=== PATIENT | female | born 1930 | race Caucasian/White ===

== ENCOUNTER 2016-11-26 14:14 | Observation (INO) | payer OTHER ==
[2016-11-26 14:28] VITALS: BMI 21.9
[2016-11-26 14:40] LABS: BASOPHIL 0.5 % (0-2.0); EOSINOPHIL 1.8 % (0-4.5); MCH 29.1 pg (25.7-33.7); MCHC 33.4 g/dl (32.0-36.0); MEAN CELL VOLUME 87.3 fl (80-96); MEAN PLT VOLUME 7.5 fl (7.5-11.1); NEUTROPHILS 63.5 % (42.8-82.8); PLATELET COUNT 239 K/MM3 (134-434); RDW 13.7 % (11.6-15.6); WHITE BLOOD COUNT 7.7 K/mm3 (4.0-10.0)
[2016-11-26] MEDS ORDERED: ASPIRIN 81 MG CHEWABLE TABLETS ONE (14:52)
[2016-11-26] MEDS ORDERED: ACETAMINOPHEN 325 MG TABLET (FP) ONE (14:52)
[2016-11-26] MEDS ORDERED: ASPIRIN 81 MG CHEWABLE TABLETS PO ONE (14:54)
[2016-11-26] MEDS ORDERED: ACETAMINOPHEN 325 MG TABLET (FP) PO ONE (14:54)
--- NOTE | 2016-11-26 14:57 | PDOC ---
History of Present Illness - General History Source: Patient, Family Exam Limitations: No Limitations <Daniel Smith - Last Filed: 11/26/16 16:40> <James Meyrs - Last Filed: 11/26/16 16:46> - General Chief Complaint: Chest Pain Stated Complaint: CHEST PAIN Time Seen by Provider: 11/26/16 14:23 - History of Present Illness Initial Comments: 11/26/16 16:40 The patient is a 86 year old female presenting with her family, with a significant past medical history of HTN and HLD, who presents to the emergency department with chest pain onset this morning around 8am. She describes her chest pain as sharp, ranging from mild to moderate, with radiation down her left arm. She reports that moving her left arm at the onset of her chest pain would cause pain on her arm. She also reports a sore throat associated with her chief complaint. The paient was last in the ED in 2014 for chest pain, she was admitted and had an exercise stress test, which was normal, as well as an echo. 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 Denies fever, chills, nausea, vomit, diarrhea and constipation. Denies dysuria, frequency, urgency and hematuria. PMD: Dr. Finn Allergies: None Past surgical history: None reported Social history: No alcohol, tobacco or drug use reported (Daniel Smith) Past History <Daniel Smith - Last Filed: 11/26/16 16:40> - Past Medical History HTN: Yes Hypercholesterolemia: Yes Other medical history: Glaucoma - Psycho/Social/Smoking Cessation Hx Anxiety: No Suicidal Ideation: No Smoking History: Never smoked Have you smoked in the past 12 months: No Hx Alcohol Use: No Drug/Substance Use Hx: No Substance Use Type: None <James Myers - Last Filed: 11/26/16 16:46> - Past Medical History Allergies/Adverse Reactions: Allergies Allergy/AdvReac Type Severity Reaction Status Date / Time No Known Allergies Allergy Verified 11/26/16 14:28 Home Medications: Ambulatory Orders Amlodipine Besylate [Norvasc -] 5 mg PO DAILY 09/30/14 Ezetimibe/Simvastatin [Vytorin 10-20 mg Tablet] 1 tab PO HS 09/30/14 Metoprolol Succinate [Toprol Xl -] 25 mg PO DAILY #30 tab.sr.24h 10/01/14 Review of Systems - Review of Systems Able to Perform ROS?: Yes <Daniel Smith - Last Filed: 11/26/16 16:40> <James Myers - Last Filed: 11/26/16 16:46> - Review of Systems Comments:: 11/26/16 16:40 CONSTITUTIONAL: No reported: Fever, Chills, Diaphoresis, Generalized Weakness, Malaise, Loss of Appetite HEENT: Reported: Sore throat No reported: Rhinorrhea, Nasal Congestion, Throat Swelling, Difficulty Swallowing, Mouth Swelling, Ear Pain, Eye Pain, Visual Changes CARDIOVASCULAR: Reported: Chest pain. No reported: Syncope, Palpitations, Irregular Heart Rate, Lightheadedness, Peripheral Edema RESPIRATORY: No reported: Cough, Shortness of Breath, SOB with Exertion, Orthopnea, Wheezing , Stridor, Hemoptysis GASTROINTESTINAL: No reported: Abdominal pain, Abdominal Distension, Nausea, Vomiting, Diarrhea, Constipation, Melena, Hematochezia GENITOURINARY: No reported: Dysuria, Frequency, Urgency, Hesitancy, Flank Pain, Genital Pain MUSCULOSKELETAL: No reported: Myalgia, Arthralgia, Joint Swelling, Back pain, Neck Pain SKIN: No reported: Rash, Itching, Pallor HEMEATOLOGIC/IMMUNOLOGIC: No reported: Easy Bleeding, Easy Bruising, Lymphadenopathy, Frequent infections ENDOCRINE: No reported: Unexplained Weight Gain, Unexplained Weight Loss, Heat Intolerance , Cold Intolerance NEUROLOGIC: No reported: Headache, Focal Weakness, Paresthesias, Vertigo, Lightheadedness, Unsteady Gait, Seizure, Mental Status Changes, Incontinence PSYCHIATRIC: No reported: Anxiety, Depression (Daniel Smith) *Physical Exam <Daniel Smith - Last Filed: 11/26/16 16:40> <James Myers - Last Filed: 11/26/16 16:46> - Vital Signs Last Vital Signs Temp Pulse Resp BP Pulse Ox 97.6 F 58 L 17 132/73 97 11/26/16 14:15 11/26/16 16:00 11/26/16 16:00 11/26/16 16:00 11/26/16 16:00 - Physical Exam Comments: 11/26/16 16:41 GENERAL: The patient is awake, alert, and fully oriented, Nontoxic - in no acute distress. HEAD: Normocephalic, atraumatic. EYES: extraocular movements intact, sclera anicteric, conjunctiva clear. ENT: Normal voice, Moist mucous membranes. NECK: Normal range of motion, supple LUNGS: Breath sounds equal, clear to auscultation bilaterally. No wheezes, no rhonchi, no rales. HEART: Regular rate and rhythm, without murmur, rub or gallop. ABDOMEN: Soft, nontender, normoactive bowel sounds. No guarding, no rebound.No CVA tenderness EXTREMITIES: Normal range of motion, no edema. No clubbing or cyanosis. No cords, erythema, or tenderness. NEUROLOGICAL: No facial assymetry, Normal speech, PSYCH: Normal mood, normal affect. SKIN: Warm, Dry, normal turgor, (Daniel Smith) Heart Score/ECG Review <Daniel Smith - Last Filed: 11/26/16 16:40> - History History: Slightly suspicious - Electrocardiogram EKG: Non specific repolarization disturbance - Age Age: >/= 65 - Risk Factors Risk Factors Heart Score: Yes Hx Hypercholesterolemia, Yes Hx Hypertension Based on the list above the patient has:: 1-2 risk factors - Troponin Troponin: </= normal limit - Score Heart Score - Total: 4 <James Myers - Last Filed: 11/26/16 16:46> - ECG Impressions Comment:: 11/26/16 14:58 Twelve-lead EKG was performed and reviewed by me. There is normal sinus rhythm Rate of 58 The axis is normal. The intervals are normal. There is normal R wave progression Nonspecific T-wave inversion in lead III (James Myers) ED Treatment Course - LABORATORY CBC & Chemistry Diagram: 11/26/16 14:33 11/26/16 14:33 <Daniel Smith - Last Filed: 11/26/16 16:40> - LABORATORY CBC & Chemistry Diagram: 11/26/16 14:33 11/26/16 14:33 <James Myers - Last Filed: 11/26/16 16:46> - ADDITIONAL ORDERS Additional order review: Laboratory Results 11/26/16 11/26/16 14:33 14:33 Sodium 140 Potassium 4.1 Chloride 107 Carbon Dioxide 28 Anion Gap 5 L BUN 19 H Creatinine 0.8 Creat Clearance w eGFR > 60 Random Glucose 82 Calcium 9.2 Total Bilirubin 0.3 D AST 15 ALT 21 Alkaline Phosphatase 55 Creatine Kinase 75 Troponin I < 0.02 B-Natriuretic Peptide 231.76 Total Protein 6.7 Albumin 3.4 11/26/16 14:33 RBC 4.73 MCV 87.3 MCHC 33.4 RDW 13.7 MPV 7.5 Neutrophils % 63.5 Lymphocytes % 27.7 Monocytes % 6.5 Eosinophils % 1.8 Basophils % 0.5 - RADIOLOGY Radiology Studies Ordered: Category Date Time Status CHEST X-RAY PORTABLE* [RAD] Stat Radiology 11/26/16 14:26 Completed SHOULDER-LEFT [RAD] Stat Radiology 11/26/16 14:56 Completed - Medications Given in the ED: ED Medications Discontinued Medications Generic Name Dose Route Start Last Admin Trade Name Freq PRN Reason Stop Dose Admin Acetaminophen 650 mg 11/26/16 14:54 11/26/16 14:58 Tylenol - PO 11/26/16 14:55 650 mg ONCE ONE Administration Aspirin 324 mg 11/26/16 14:54 11/26/16 14:58 Asa - PO 11/26/16 14:55 324 mg ONCE ONE Administration Medical Decision Making <Daniel Smith - Last Filed: 11/26/16 16:40> <James Myers - Last Filed: 11/26/16 16:46> - Medical Decision Making 11/26/16 14:55 86y F hx of HL. htn, presents with complaint of chets pain startin gapprox 8am, pt endorses a sharp intermittent pain associated with coughing, radiating from the mid chest to the right chest and to the L arm. On exam the pt is well appearing, in no distress. currently denies pain, pulses symmetric b/l. mild crepitus =in the L shoulder concern for ACS will obtain trops x 2, ekg will give ASA consider dissection, however with symetric pulses, intermittent sypmtmos do not feel thi sis likely clinically inconsistent w/ pe will erassesss consider broken heart syndrome A portion of this note was documented by scribe services under my direction. I have reviewed the details of the note, within reason, and agree with the documentation with the following case summary and management plan written by me 11/26/16 16:25 trop neg x 1 cxr neg will observe for risk stratefication of acs 11/26/16 16:[address] gonzalez agreed with admission to [facility] for obs under dr. bronson service Case discussed in detail with admitting physician including history, physical exam and ancillary studies. Admitting physician has assumed care for the patient, will follow all pending diagnostics and will complete the evaluation and treatment. (James Myers) *DC/Admit/Observation/Transfer <Daniel Smith - Last Filed: 11/26/16 16:40> - Discharge Dispostion Admit: Yes <James Myers - Last Filed: 11/26/16 16:46> Diagnosis at time of Disposition: Chest pain Qualifiers: Chest pain type: unspecified Qualified Code(s): R07.9 - Chest pain, unspecified - Discharge Dispostion Condition at time of disposition: Stable - Referrals Referrals: Marixa Gaspar MD [Primary Care Provider] - - Patient Instructions - Attestations Scribe Attestion: 11/26/16 16:41 Documentation prepared by Daniel Smith, acting as medical professionals for James Myers MD (Daniel Smith)
[2016-11-26 15:03] LABS: ALBUMIN 3.4 g/dl (3.4-5.0); ANION GAP 5 (8-16); BILIRUBIN,TOTAL 0.3 mg/dL (0.2-1.0); CALCIUM 9.2 mg/dL (8.5-10.1); CO2 28 mmol/L (21-32); CREATININE 0.8 mg/dL (0.55-1.02); GLUCOSE,RANDOM 82 mg/dL (74-106); SGOT/AST 15 U/L (15-37); SGPT/ALT 21 U/L (12-78); TOT PROT 6.7 g/dl (6.4-8.2)
[2016-11-26 15:05] LABS: ALK PHOS 55 U/L (45-117); CPK 75 IU/L (26-192); TROPONIN I < 0.02 ng/ml (0.00-0.05)
[2016-11-26] MEDS ORDERED: ACETAMINOPHEN 325 MG TABLET (FP) PO PRN (17:21)
[2016-11-26] MEDS ORDERED: HEPARIN NA (PORCINE) 5,000 UNITS/ML 1ML VIAL SQ SCH (18:00)
--- NOTE | 2016-11-26 18:05 | PN ---
Teaching Attending Note Name of Resident: Sherie Gary ATTENDING PHYSICIAN STATEMENT I saw and evaluated the patient. I reviewed the resident's note and discussed the case with the resident. I agree with the resident's findings and plan as documented. SUBJECTIVE: This is an 86-year-old woman with a history of HTN, hyperlipidemia who was brought in to the ER because of chest pain. The patient reports pressure in her chest radiating to her left arm and neck that started while she was lying in bed. She denies palpitations, diaphoresis, SOB, nausea. She had a negative stress test 2 years ago. Her 2 days ago. OBJECTIVE: Vital Signs Period Temp Pulse Resp BP Sys/Brown Pulse Ox Last 24 Hr 97.6 F 58-72 17-18 132-166/69-76 97-100 HEART: S1S2, bradycardic LUNGS: Clear ABDOMEN: Soft, non-tender, non-distended, normal BS EXTREMITIES: No edema Home Medications Medication Instructions Recorded Amlodipine Besylate [Norvasc -] 5 mg PO DAILY 09/30/14 Ezetimibe/Simvastatin [Vytorin 1 tab PO HS 09/30/14 10-20 mg Tablet] Metoprolol Succinate [Toprol Xl -] 25 mg PO DAILY #30 tab.sr.24h 10/01/14 ASSESSMENT AND PLAN: This is an 86-year-old woman with a history of HTN, hyperlipidemia who presented to the ER with chest pressure radiating to her left arm and neck at rest 2 days after her . 1. Chest pain - Observe on telemetry - Serial troponins - Start aspirin - Hold Toprol XL secondary to bradycardia - Continue Vytorin - Echocardiogram 2. Hypertension - Continue Norvasc - Hold Toprol XL secondary to bradycardia 3. Hyperlipidemia - Continue Vytorin
--- NOTE | 2016-11-26 19:31 | HP ---
CHIEF COMPLAINT: chest pain PCP: Dr. Marixa Gaspar HISTORY OF PRESENT ILLNESS: 86 year old female with a past medical history of hypertension and hyperlipidemia, was brought in by her family members due to chest pain that started early this morning while still lying in bed. Patient states she way lying down when she felt this heavy pressure in her chest. This lasted a few minuets, pressure/pain radiated down left arm and also went up the left side of her neck. Patient denies diaphoresis, palpitations, orthopnea, edema, sob, fever , chills, v, n, abdominal pain. She does admit to a few episodes of diarrhea for the past couple of days, which has subsided today. She had a formed bowel movement today. Her grandchildren also had same diarrhea symptoms. Patient recently lost her due to cancer two days ago as well. Family states that she has been a little nervous lately. Ms Villalobos had a cardiology work up September 2014, stress test was negative for ischemia, with EF of 79%. ER course was unremarkable. ECG was NSR, comparable to previous. Recent Travel: no PAST MEDICAL HISTORY: HLD, HTN PAST SURGICAL HISTORY: hysterectomy Social History: Smoking:no Alcohol:no Drugs: no Family History: Allergies No Known Allergies Allergy (Verified 11/26/16 14:28) HOME MEDICATIONS: Home Medications Medication Instructions Recorded Amlodipine Besylate [Norvasc -] 5 mg PO DAILY 09/30/14 Ezetimibe/Simvastatin [Vytorin 1 tab PO HS 09/30/14 10-20 mg Tablet] Metoprolol Succinate [Toprol Xl -] 25 mg PO DAILY #30 tab.sr.24h 10/01/14 REVIEW OF SYSTEMS CONSTITUTIONAL: Absent: fever, chills, diaphoresis, generalized weakness, malaise, loss of appetite, weight change HEENT: Absent: rhinorrhea, nasal congestion, throat pain, throat swelling, difficulty swallowing, mouth swelling, ear pain, eye pain, visual changes CARDIOVASCULAR: Positive: chest pain Absent: syncope, palpitations, irregular heart rate, lightheadedness, peripheral edema RESPIRATORY: Absent: cough, shortness of breath, dyspnea with exertion, orthopnea, wheezing, stridor, hemoptysis GASTROINTESTINAL: Absent: abdominal pain, abdominal distension, nausea, vomiting, diarrhea, constipation, melena, hematochezia GENITOURINARY: Absent: dysuria, frequency, urgency, hesitancy, hematuria, flank pain, genital pain MUSCULOSKELETAL: Absent: myalgia, arthralgia, joint swelling, back pain, neck pain SKIN: Absent: rash, itching, pallor HEMATOLOGIC/IMMUNOLOGIC: Absent: easy bleeding, easy bruising, lymphadenopathy, frequent infections ENDOCRINE: Absent: unexplained weight gain, unexplained weight loss, heat intolerance, cold intolerance NEUROLOGIC: Absent: headache, focal weakness or paresthesias, dizziness, unsteady gait, seizure, mental status changes, bladder or bowel incontinence PSYCHIATRIC: Absent: anxiety, depression, suicidal or homicidal ideation, hallucinations. PHYSICAL EXAMINATION Vital Signs - 24 hr 11/26/16 11/26/16 17:55 18:45 Pulse Rate 64 74 Respiratory 16 16 Rate Blood Pressure 126/54 O2 Sat by Pulse 97 96 Oximetry (%) GENERAL: Awake, alert, and fully oriented, in no acute distress. HEAD: Normal with no signs of trauma. NECK: Normal range of motion, supple without lymphadenopathy, JVD, or masses. LUNGS: Breath sounds equal, clear to auscultation bilaterally. No wheezes, and no crackles. No accessory muscle use. HEART: Regular rate and rhythm, normal S1 and S2 without murmur, rub or gallop. ABDOMEN: Soft, nontender, not distended, normoactive bowel sounds, no guarding, no rebound, no masses. No hepatomegaly or splenomegaly. MUSCULOSKELETAL: Normal range of motion at all joints. No bony deformities or tenderness. No CVA tenderness. UPPER EXTREMITIES: 2+ pulses, warm, well-perfused. No cyanosis. No clubbing. No peripheral edema. LOWER EXTREMITIES: 2+ pulses, warm, well-perfused. No calf tenderness. No peripheral edema. NEUROLOGICAL: Cranial nerves II-XII intact. Normal speech. Normal gait. PSYCHIATRIC: Cooperative. Good eye contact. Appropriate mood and affect. SKIN: Warm, dry, normal turgor, no rashes or lesions noted, normal capillary refill. ASSESSMENT/PLAN: 86 year old female with a past medical history of hypertension and hyperlipidemia, presents tot he ER with chest pain. Rule out ACS. #chest pain r/o ACS; agina; vs stress related -cardiac monitoring -ECG NST; no st-t wave abnormalities -Last echo 10/06 showing normal LV function; no wall motion abnormalities, mild TR, mild to moderate mitral regurg -stress test 10/06 negative for ischema EF 79% -trend troponins -appreciate cardio #bradycardia: -will hold BB #hypertension: -cont amlodipime 5mg qd -hold metoprool due to HR #hyperlipidemia: -cont home statin FEN: Fluid restrict Electrolytes: wnl Diet: regular due to bp VTE prophylaxis: Disposition: monitor obs tele Problem List - Problem (1) Chest pain Code(s): R07.9 - CHEST PAIN, UNSPECIFIED Qualifiers: Chest pain type: unspecified Qualified Code(s): R07.9 - Chest pain, unspecified (2) Bradycardia Code(s): R00.1 - BRADYCARDIA, UNSPECIFIED (3) Hyperlipemia Code(s): E78.5 - HYPERLIPIDEMIA, UNSPECIFIED (4) Hx of essential hypertension Code(s): Z86.79 - PERSONAL HISTORY OF OTHER DISEASES OF THE CIRCULATORY SYSTEM Visit type - Emergency Visit Emergency Visit: Yes ED Registration Date: 11/26/16 Care time: The patient presented to the Emergency Department on the above date and was hospitalized for further evaluation of their emergent condition. - New Patient This patient is new to me today: Yes Date on this admission: 11/27/16 - Critical Care Critical Care patient: No
[2016-11-26] MEDS: HEPARIN NA (PORCINE) 5,000 UNITS/ML 1ML VIAL SQ SCH (21:17)
[2016-11-26] MEDS ORDERED: diphenhydrAMINE HCL 25 MG CAPSULE (FP) PO ONE (22:00)
[2016-11-27] MEDS: HEPARIN NA (PORCINE) 5,000 UNITS/ML 1ML VIAL SQ SCH ×3 (06:30→22:06)
[2016-11-27 07:07] LABS: ANION GAP 2 (8-16); CALCIUM 8.5 mg/dL (8.5-10.1); CO2 32 mmol/L (21-32); GLUCOSE,RANDOM 89 mg/dL (74-106)
[2016-11-27 07:13] LABS: ALK PHOS 49 U/L (45-117); BILIRUBIN,TOTAL 0.2 mg/dL (0.2-1.0); SGOT/AST 14 U/L (15-37); SGPT/ALT 17 U/L (12-78); THYROID STIMULATING HORMONE 0.46 uIU/ml (0.358-3.74); TOT PROT 5.9 g/dl (6.4-8.2)
--- NOTE | 2016-11-27 07:30 | PN ---
Physical Exam: SUBJECTIVE: Patient seen and examined The patient is an 86-year-old woman with a history of HTN, hyperlipidemia who was placed on observation yesterday for evaluation of chest pain. She had a negative stress test 2 years ago. Her two days prior to hospitalization. She denies chest pain. OBJECTIVE: Vital Signs Period Temp Pulse Resp BP Sys/Brown Pulse Ox Last 24 Hr 97.4 F-98 F 55-74 16-18 115-134/43-61 94-97 HEART: S1S2, RRR LUNGS: Clear ABDOMEN: Soft, non-tender, non-distended, normal BS EXTREMITIES: No edema Laboratory Results - last 24 hr 11/26/16 21:50 Troponin I 0.04 Active Medications Generic Name Dose Route Start Last Admin Trade Name Freq PRN Reason Stop Dose Admin Acetaminophen 650 mg 11/26/16 17:21 Tylenol - PO Q4H PRN FEVER OR PAIN Amlodipine Besylate 5 mg 11/27/16 10:00 Norvasc - PO DAILY RAHUL Aspirin 81 mg 11/27/16 10:00 Ecotrin - PO DAILY RAHUL Atorvastatin Calcium 10 mg 11/27/16 22:00 Lipitor - PO HS RAHUL Ezetimibe 10 mg 11/27/16 22:00 Zetia - PO HS RAHUL Heparin Sodium (Porcine) 5,000 unit 11/26/16 22:00 11/27/16 06:30 Heparin - SQ 5,000 unit TID RAUHL Administration ASSESSMENT/PLAN: #Cardiovascular Chest pain Chronic HTN Chronic Hyperlipidemia Bradycardia Observe on telemetry Last 2 troponins were negative. 3rd is pending. TTE in am Continue aspirin Continue to hold Toprol XL secondary to bradycardia Continue Lipitor/Zetia Cardiology consult (Dr. Cline) pending # FEN Regular diet Replete lytes prn #Prophylaxis Eating On TID Heparin #DISPO Peniding cardiology evaluation and TTE in am Visit type - Emergency Visit Emergency Visit: Yes ED Registration Date: 11/26/16 Care time: The patient presented to the Emergency Department on the above date and was hospitalized for further evaluation of their emergent condition. - New Patient This patient is new to me today: Yes Date on this admission: 11/27/16 - Critical Care Critical Care patient: No
--- NOTE | 2016-11-27 08:13 | EKG ---
Test Reason : Blood Pressure : / mmHG Vent. Rate : 058 BPM Atrial Rate : 058 BPM P-R Int : 160 ms QRS Dur : 092 ms QT Int : 434 ms P-R-T Axes : 017 -04 013 degrees QTc Int : 426 ms SINUS BRADYCARDIA MINIMAL VOLTAGE CRITERIA FOR LVH, MAY BE NORMAL VARIANT BORDERLINE ECG WHEN COMPARED WITH ECG OF 30-SEP-2014 15:04, PREMATURE ATRIAL COMPLEXES ARE NO LONGER PRESENT Confirmed by SAKSHI DAWN, ARACELI ([id number]) on 11/27/2016 8:13:25 AM Referred By: Confirmed By:ARACELI CANTOR MD
--- NOTE | 2016-11-27 09:06 | CON.CARD ---
Consult Consult Specialty:: Cardiology Referred by:: Hospitalist Reason for Consultation:: Cardiac evaluation - History of Present Illness Chief Complaint: Chest pain History of Present Illness: Patient is an 86 year old female with underlying history of hypertension and hypercholesterolemia who presented to ED yesterday with chest pain which started yesterday morning. She describes it as "sharp" with radiating to her left arm. She also complained of sore throat yesterday. She denies shortness of breath or palpitations. She denies paroxymal nocturnal dyspnea or orthopnea. She denies fever or chills. She denies headache or lightheadedness. She denies syncopal episodes. She has had stress testing in 2015 which was unremarkable. PCP: Dr. 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 History of Recent Travel: No Home Medications - Allergies Allergies/Adverse Reactions: Allergies Allergy/AdvReac Type Severity Reaction Status Date / Time No Known Allergies Allergy Verified 11/26/16 14:28 - Home Medications Home Medications: Ambulatory Orders Amlodipine Besylate [Norvasc -] 5 mg PO DAILY 09/30/14 Ezetimibe/Simvastatin [Vytorin 10-20 mg Tablet] 1 tab PO HS 09/30/14 Metoprolol Succinate [Toprol Xl -] 25 mg PO DAILY #30 tab.sr.24h 10/01/14 Family Disease History - Family Disease History Family Disease History: Heart Disease: Sister (Heart disease), CA: Father (Lung) Review of Systems - Review of Systems Constitutional: denies: Chills, Fever Cardiovascular: reports: Chest Pain. denies: Palpitations, Shortness of Breath Respiratory: denies: Cough, Hemoptysis, Orthopnea, PND, SOB, SOB on Exertion Gastrointestinal: denies: Abdominal Pain, Constipation, Diarrhea, Melena, Nausea , Rectal Bleeding, Vomiting Musculoskeletal: denies: Joint Pain Neurological: reports: Dizziness. denies: Headache, Seizure, Syncope Vital Signs: Vital Signs Temperature 98 F 11/27/16 06:41 Pulse Rate 58 L 11/27/16 06:41 Respiratory Rate 16 11/27/16 06:00 Blood Pressure 126/46 11/27/16 06:00 O2 Sat by Pulse Oximetry (%) 94 L 11/27/16 05:00 HENT: Yes: Atraumatic Neck: Yes: Supple Respiratory: Yes: CTA Bilaterally Gastrointestinal: Yes: Normal Bowel Sounds, Soft. No: Tenderness Cardiovascular: Yes: Regular Rate and Rhythm. No: Gallop JVD: No Carotid Bruit: No PMI: Non-Displaced Heart Sounds: Yes: S1, S2 Edema: No - Other Data Labs, Other Data: CBC, BMP 11/27/16 05:15 Troponin, BNP 11/26/16 11/27/16 21:50 05:15 Troponin I 0.04 Cancelled Laboratory Results - last 24 hr 11/26/16 11/26/16 11/26/16 14:33 14:33 14:33 WBC 7.7 RBC 4.73 Hgb 13.8 Hct 41.3 MCV 87.3 MCH 29.1 MCHC 33.4 RDW 13.7 Plt Count 239 MPV 7.5 Neutrophils % 63.5 Lymphocytes % 27.7 Monocytes % 6.5 Eosinophils % 1.8 Basophils % 0.5 Sodium 140 Potassium 4.1 Chloride 107 Carbon Dioxide 28 Anion Gap 5 L BUN 19 H Creatinine 0.8 Creat Clearance w eGFR > 60 Random Glucose 82 Calcium 9.2 Magnesium Total Bilirubin 0.3 D AST 15 ALT 21 Alkaline Phosphatase 55 Creatine Kinase 75 Troponin I < 0.02 B-Natriuretic Peptide 231.76 Total Protein 6.7 Albumin 3.4 Triglycerides Cholesterol Total LDL Cholesterol HDL Cholesterol TSH 11/26/16 11/27/16 11/27/16 21:50 05:15 05:15 WBC RBC Hgb Hct MCV MCH MCHC RDW Plt Count MPV Neutrophils % Lymphocytes % Monocytes % Eosinophils % Basophils % Sodium 141 Potassium 4.5 Chloride 107 Carbon Dioxide 32 Anion Gap 2 L BUN 23 H D Creatinine 1.0 D Creat Clearance w eGFR 52.69 Random Glucose 89 Calcium 8.5 Magnesium 2.0 Total Bilirubin 0.2 D AST 14 L ALT 17 Alkaline Phosphatase 49 Creatine Kinase Troponin I 0.04 0.03 B-Natriuretic Peptide Total Protein 5.9 L Albumin 3.0 L Triglycerides 139 Cholesterol 164 Total LDL Cholesterol 85 HDL Cholesterol 54 TSH 0.46 Sinus bradycardia Echo: Pending Imaging - Results Chest X-ray: Report Reviewed (Unremarkable) EKG: Report Reviewed Problem List - Problems (1) Chest pain Code(s): R07.9 - CHEST PAIN, UNSPECIFIED Qualifiers: Chest pain type: unspecified Qualified Code(s): R07.9 - Chest pain, unspecified (2) Hx of essential hypertension Code(s): Z86.79 - PERSONAL HISTORY OF OTHER DISEASES OF THE CIRCULATORY SYSTEM (3) Hyperlipemia Code(s): E78.5 - HYPERLIPIDEMIA, UNSPECIFIED Assessment/Plan 1. Chest pain syndrome rule out CAD 2. Hypertension 3. Hypercholesterolemia PLAN: 1. Serial cardiac enzymes 2. Continue Amlodipine 3. Beta fernanda - Metoprolol as tolerated, but currently held due to bradycardia 4. Continue ASA 5. Continue Atorvastatin 6. Transthoracic echocardiography to assess LV/RV and valvular function 7. Consider nuclear myocardial perfusion imaging study Further plans are to follow Paulino Cline MD
[2016-11-27] MEDS: ASPIRIN COATED 81 MG TABLET.EC PO SCH (09:25)
[2016-11-27] MEDS: amLODIPine BESYLATE 5 MG TABLET (FP) PO SCH (09:25)
[2016-11-27] MEDS ORDERED: traZODone HCL 50 MG TABLET (FP) PO PRN (12:42)
[2016-11-27 12:45] LABS: TROPONIN I 0.03 ng/ml (0.00-0.05)
[2016-11-27] MEDS ORDERED: ATORVASTATIN CA 10 MG TABLET (FP) PO SCH (22:00)
[2016-11-27] MEDS ORDERED: EZETIMIBE 10 MG TABLET (FP) PO SCH (22:00)
[2016-11-28] MEDS: HEPARIN NA (PORCINE) 5,000 UNITS/ML 1ML VIAL SQ SCH ×2 (06:23→12:59)
[2016-11-28 06:46] LABS: BASOPHIL 0.6 % (0-2.0); EOSINOPHIL 2.1 % (0-4.5); MCHC 34.1 g/dl (32.0-36.0); MEAN CELL VOLUME 87.8 fl (80-96); NEUTROPHILS 64.5 % (42.8-82.8); PLATELET COUNT 243 K/MM3 (134-434); RDW 13.6 % (11.6-15.6); WHITE BLOOD COUNT 7.1 K/mm3 (4.0-10.0)
[2016-11-28 06:59] LABS: ANION GAP 5 (8-16); CALCIUM 8.7 mg/dL (8.5-10.1); CO2 30 mmol/L (21-32); GLUCOSE,RANDOM 101 mg/dL (74-106); PHOSPHOROUS 3.7 mg/dL (2.5-4.9)
--- NOTE | 2016-11-28 11:08 | PN ---
Teaching Attending Note Name of Resident: Chiara Kevin ATTENDING PHYSICIAN STATEMENT I saw and evaluated the patient. I reviewed the resident's note and discussed the case with the resident. I agree with the resident's findings and plan as documented. SUBJECTIVE: No chest pain OBJECTIVE: Vitals noted ASSESSMENT AND PLAN: Heart rate precludes addition of beta fernanda Awaiting TTE and Stress Anticipate discharge later today pending TTE and Stress test results See resident note for full details
[2016-11-28] MEDS: ASPIRIN COATED 81 MG TABLET.EC PO SCH (12:59)
[2016-11-28] MEDS: amLODIPine BESYLATE 5 MG TABLET (FP) PO SCH (12:59)
[2016-11-28 14:09] VITALS: BP 120/54; PULSE 78; TEMP 98.2
--- NOTE | 2016-11-28 16:04 | DS ---
Physical Exam: SUBJECTIVE: Patient seen and examined at bedside. Pt states that she is no longer having chest pain. Denies SOB, N/V, or lower extremity pain. OBJECTIVE: Vital Signs Period Temp Pulse Resp BP Sys/Brown Pulse Ox Last 24 Hr 98.1 F-98.8 F 59-78 16-20 120-146/54-68 96-98 PHYSICAL EXAM GENERAL: The patient is awake, alert, and fully oriented, in no acute distress. HEAD: Normal with no signs of trauma. EYES: PERRL, extraocular movements intact, sclera anicteric, conjunctiva clear. NECK: Trachea midline, supple. LUNGS: Breath sounds equal, clear to auscultation bilaterally, no wheezes, no crackles, no accessory muscle use. HEART: Regular rate and rhythm, S1, S2 without murmur, rub or gallop. ABDOMEN: Soft, nontender, nondistended, normoactive bowel sounds, no guarding, no rebound, no hepatosplenomegaly, no masses. EXTREMITIES: 2+ posterior tibial pulses, warm, well-perfused, no edema. NEUROLOGICAL: Cranial nerves II through XII grossly intact. VITALS TREND/LABS Vitals Trend 11/26/16 11/26/16 11/26/16 14:15 15:03 16:00 Temperature 97.6 F Pulse Rate 65 Respiratory 18 18 17 Rate Blood Pressure 166/69 O2 Sat by Pulse 99 100 97 Oximetry (%) 11/26/16 11/26/16 11/26/16 17:55 18:45 20:00 Temperature 97.6 F Pulse Rate 64 74 57 L Respiratory 16 16 18 Rate Blood Pressure 126/54 115/43 O2 Sat by Pulse 97 96 95 Oximetry (%) 11/26/16 11/27/16 11/27/16 22:00 00:55 02:01 Temperature 97.8 F 97.4 F L Pulse Rate 55 L 58 L 57 L Respiratory 18 Rate Blood Pressure 121/61 121/61 134/57 O2 Sat by Pulse Oximetry (%) 11/27/16 11/27/16 11/27/16 05:00 06:00 06:41 Temperature 97.9 F 98 F Pulse Rate 58 L 58 L Respiratory 16 Rate Blood Pressure 126/46 O2 Sat by Pulse 94 L Oximetry (%) 11/27/16 11/27/16 11/27/16 10:00 14:00 17:51 Temperature 98.3 F 98.2 F 98.6 F Pulse Rate 68 66 66 Respiratory 16 18 16 Rate Blood Pressure 132/50 132/72 146/66 O2 Sat by Pulse 96 Oximetry (%) 11/27/16 11/27/16 11/28/16 18:00 22:00 00:50 Temperature 98.8 F Pulse Rate 61 62 Respiratory 16 18 18 Rate Blood Pressure 134/68 121/59 O2 Sat by Pulse 96 98 Oximetry (%) 11/28/16 11/28/16 11/28/16 02:00 06:00 10:00 Temperature 98.2 F 98.3 F 98.1 F Pulse Rate 59 L 61 65 Respiratory 20 18 18 Rate Blood Pressure 123/60 139/65 137/57 O2 Sat by Pulse 98 98 Oximetry (%) 11/28/16 14:00 Temperature 98.2 F Pulse Rate 78 Respiratory 18 Rate Blood Pressure 120/54 O2 Sat by Pulse Oximetry (%) Laboratory Tests 11/26/16 11/26/16 11/27/16 14:33 14:33 05:15 WBC 7.7 Hgb 13.8 Hct 41.3 Plt Count 239 Sodium 140 141 Potassium 4.1 4.5 Chloride 107 107 Carbon Dioxide 28 32 BUN 19 H 23 H D Creatinine 0.8 1.0 D Troponin I Total Protein 5.9 L Albumin 3.0 L 11/27/16 11/28/16 11/28/16 05:15 05:15 05:15 WBC 7.1 Hgb 13.0 Hct 38.0 Plt Count 243 Sodium 141 Potassium 4.5 Chloride 106 Carbon Dioxide 30 BUN 25 H Creatinine 1.0 Troponin I 0.03 Total Protein Albumin IMAGING 11/26/16: CXR: no acute pathology 11/28/16: EKG: sinus bradycardia 11/28/16: ECHO: within normal limits 11/28/16: myocardial perfusion scan: negative stress test overall. Reduced exercise capacity and tolerance. Frequent PVCs seen. Normal LV function EF 73% HOSPITAL COURSE: Date of Admission:11/26/16 Date of Discharge: 11/28/16 Admit diagnosis: atypical chest pain r/o ACS Pre-admission course 86 year old F with PMH of hypertension and hyperlipidemia, who was brought in by family members due to chest pain that started while lying in bed on AM of admission. Patient stated that she was lying down when she felt a heavy pressure in her chest. This lasted a few minutes abd radiated down her left arm and up the left side of her neck. Patient denied diaphoresis, palpitations, orthopnea, edema, SOB, fever, chills, N/V or abdominal pain. She admitted to a few episodes of diarrhea over the past few days, which subsided on the day of admission. Patient recently lost her due to cancer two days ago. She had a cardiology work up September 2014, stress test was negative for ischemia, with EF of 79%. EKG revealed sinus bradycardia. Hospital course Pt's chest pain was further worked up. Troponins were negative x3. EKG revealed sinus bradycardia, while ECHO and myocardial perfusion scan were within normal limits. Pt was managed on amlodipine 5mg PO, aspirin 81mg PO, atorvastatin 10mg PO, and ezetimbe 10mg PO. Her metoprolol was held, as she was bradycardic with her HR ranging consistently around 60 bpm. We are advising this medication to be held until she follows with her primary care doctor and patternmaker metal in 1 week. Minutes to complete discharge: 32 Discharge Summary Reason For Visit: CHEST PAIN Current Active Problems Bradycardia (Acute) Chest pain (Acute) Hx of essential hypertension (Chronic) Hyperlipemia (Chronic) Condition: Stable - Instructions Diet, Activity, Other Instructions: You were recently in the hospital for chest pain. You may resume activity as tolerated. Please take the following medications upon discharge: -Amlodipine (Norvasc) 5 mg (1 tablet) by mouth daily -Aspirin 81mg (1 tablet) by mouth daily -Atorvastatin 10mg (1 tablet) by mouth daily -Exetemibe 10 mg (1 tablet) by mouth daily (Trazodone 50mg at night when needed- this is for insomnia. Please discuss this medication with your primary care doctor.) Please do not take your metoprolol until you discuss it with your primary care doctor and patternmaker metal. Since you have a low heart rate, this medication can make your heart rate even lower. Please also discuss the medication, Trazodone with them. It is for insomnia. We would like you to follow-up with your primary care doctor, and a patternmaker metal , Dr. Cline in 1 week. If you develop any shortness of breath, chest pain, or any new symptoms, please go to the hospital. We hope you feel better soon. Referrals: Marixa Gaspar MD [Primary Care Provider] - Paulino Cline MD [Staff Physician] - Disposition: HOME - Home Medications Comprehensive Discharge Medication List: Ambulatory Orders Amlodipine Besylate [Norvasc -] 5 mg PO DAILY 09/30/14 Ezetimibe/Simvastatin [Vytorin 10-20 mg Tablet] 1 tab PO HS 09/30/14 Acetaminophen [Tylenol .Regular Strength -] 650 mg PO Q4H PRN #0 tablet Aspirin Coated [Ecotrin -] 81 mg PO DAILY #30 tab 11/28/16 Atorvastatin Ca [Lipitor] 10 mg PO HS #30 tablet 11/28/16 Trazodone HCl [Desyrel -] 25 mg PO HS PRN #30 tablet 11/28/16 This patient is new to me today: Yes Date on this admission: 11/28/16 Emergency Visit: No Critical Care patient: Yes Total Critical Care Time (in minutes): 32 Critical Care Statement: The care of this patient involved high complexity decision making to prevent further life threatening deterioration of the patient 's condition and/or to evalute & treat vital organ system(s) failure or risk of failure. - Discharge Referral Referred to [facility] No
--- NOTE | 2016-11-28 17:30 | PN ---
Progress Note, Physician Chief Complaint: Not in distress Seen in Cardiology during stress testing History of Present Illness: Patient was seen and examined. Awake and alert. Chart was reviewed Denies chest pain, SOB or palpitations - Objective Vital Signs: Vital Signs Temperature 98.2 F 11/28/16 14:00 Pulse Rate 78 11/28/16 14:00 Respiratory Rate 18 11/28/16 14:00 Blood Pressure 120/54 11/28/16 14:00 O2 Sat by Pulse Oximetry (%) 98 11/28/16 10:00 HENT: Yes: Atraumatic Neck: Yes: Supple Cardiovascular: Yes: Regular Rate and Rhythm, S1, S2. No: Murmur Respiratory: Yes: CTA Bilaterally Gastrointestinal: Yes: Normal Bowel Sounds, Soft. No: Tenderness Edema: No Additional Findings/Remarks: - Review of Systems Constitutional: denies: Chills, Fever Cardiovascular: reports: Chest Pain. denies: Palpitations, Shortness of Breath Respiratory: denies: Cough, Hemoptysis, Orthopnea, PND, SOB, SOB on Exertion Gastrointestinal: denies: Abdominal Pain, Constipation, Diarrhea, Melena, Nausea , Rectal Bleeding, Vomiting Musculoskeletal: denies: Joint Pain Neurological: reports: Dizziness. denies: Headache, Seizure, Syncope Labs: CBC, BMP 11/28/16 05:15 11/28/16 05:15 Laboratory Results - last 24 hr 11/28/16 11/28/16 05:15 05:15 WBC 7.1 RBC 4.32 Hgb 13.0 Hct 38.0 MCV 87.8 MCH 30.0 MCHC 34.1 RDW 13.6 Plt Count 243 MPV 8.0 Neutrophils % 64.5 Lymphocytes % 26.6 Monocytes % 6.2 Eosinophils % 2.1 Basophils % 0.6 Sodium 141 Potassium 4.5 Chloride 106 Carbon Dioxide 30 Anion Gap 5 L BUN 25 H Creatinine 1.0 Random Glucose 101 Calcium 8.7 Phosphorus 3.7 Magnesium 2.0 Problem List - Problems (1) Chest pain Code(s): R07.9 - CHEST PAIN, UNSPECIFIED Qualifiers: Chest pain type: unspecified Qualified Code(s): R07.9 - Chest pain, unspecified (2) Hx of essential hypertension Code(s): Z86.79 - PERSONAL HISTORY OF OTHER DISEASES OF THE CIRCULATORY SYSTEM (3) Hyperlipemia Code(s): E78.5 - HYPERLIPIDEMIA, UNSPECIFIED Qualifiers: Hyperlipidemia type: pure hypercholesterolemia Qualified Code(s): E78.00 - Pure hypercholesterolemia, unspecified; E78.0 - Pure hypercholesterolemia Assessment/Plan 1. Chest pain syndrome rule out CAD, possibly costochodritis vs. anxiety withe recent loss of her 2. Hypertension 3. Hypercholesterolemia PLAN: 1. Serial cardiac enzymes negative 2. Continue Amlodipine 3. Beta fernanda - Metoprolol as tolerated, but currently held due to bradycardia 4. Continue ASA 5. Continue Atorvastatin 6. Transthoracic echocardiography reveals normal LV systolic function, mild MR, mild AR and MS 7. Nuclear myocardial perfusion imaging study reveals small zone of inferior fixed compatible with attenuation and LVEF 73% Discharge home. Paulino Cline MD
== END 2016-11-28 16:54 | disposition home or self-care (01) ==
LOC: JER 14:14 → JERBED 16:47 → J2W 17:47
PROVIDERS: ADMIT Internal Medicine; ATTEND Internal Medicine
PROC: 3E013GC Introduction of Other Therapeutic Substance into Subcutaneous Tissue, Percutaneous Approach (ICD-10-PCS; principal; 2016-11-26)
DX: R07.9 Chest pain, unspecified (principal); I10 Essential (primary) hypertension; E78.5 Hyperlipidemia, unspecified; H40.9 Unspecified glaucoma; R00.1 Bradycardia, unspecified
CPT/HCPCS: 36415; 71010-TC; 73030-TC-LT; 78452-TC; 80048; 80053; 80061; 83721; 83735; 83880; 84100; 84443; 84484; 85025; 93005; 93010; 93017; 93306-TC; 99285-25; A9502; G0378; J1644

== ENCOUNTER 2019-03-03 15:26 | Inpatient (IN) | payer OTHER ==
[2019-03-03] MEDS ORDERED: SODIUM CHLORIDE 1,000 ML IV STA (16:24)
[2019-03-03 16:35] LABS: BASO % 0.6 % (0-2.0); EOS % 1.4 % (0-4.5); HEMATOCRIT 32.3 % (32.4-45.2); HEMOGLOBIN 9.9 GM/dL (10.7-15.3); MCH 22.1 pg (25.7-33.7); MCHC 30.8 g/dl (32.0-36.0); MEAN CELL VOLUME 71.9 fl (80-96); MEAN PLT VOLUME 7.4 fl (7.5-11.1); MONO % 6.1 % (3.8-10.2); NEUT % 78.9 % (42.8-82.8); PLATELET COUNT 362 K/MM3 (134-434); RBC 4.49 M/mm3 (3.60-5.2); RDW 16.7 % (11.6-15.6); WHITE BLOOD COUNT 11.2 K/mm3 (4.0-10.0)
--- NOTE | 2019-03-03 16:52 | PDOC ---
Attending Attestation - Resident Resident Name: JovannaMadan - ED Attending Attestation I have performed the following: I have examined & evaluated the patient, The case was reviewed & discussed with the resident, I agree w/resident's findings & plan - HPI HPI: 03/03/19 16:52 88-year-old female with history of hypertension hyperlipidemia presenting with syncope and collapse witnessed by son this afternoon. She was working on lower arrangements, she started feeling very diaphoretic, flushed and lightheaded sat down in a chair and then subsequently passed out, caught by her son. Episode lasted less than 1 minute, no urinary incontinence, seizure, confusion. She has history of similar syncopal episode secondary to dehydration. She admits to not drinking all day today and feels dehydrated right now. - Physicial Exam PE: 03/03/19 16:52 Agree with the resident's HPI and PE as documented in the electronic medical record. NAD, well appearing, EOMI, PERRL, nl conjunctiva, anicteric; neck supple. lungs clear, RRR, no murmur, abdomen soft nontender. no rebound, guarding. Back nontender. LARSEN x4, no focal neuro deficits. No peripheral edema. normal color for ethnicity, WWP. - Medical Decision Making 03/03/19 16:52 Vital Signs Temp Pulse Resp BP Pulse Ox 98.2 F 81 16 136/77 96 03/03/19 15:29 03/03/19 15:29 03/03/19 15:29 03/03/19 15:29 03/03/19 15:29 DDx. syncope: considered interval abnormalities including short QTC or long QT syndrome, WPW, conduction abnormality, Brugada, ACS, PE, electrolyte disturbances, metabolic derangement. seizure. anemia. GIB/ Laboratory results reviewed, new anemia is noted anemia as noted, hemoglobin 9.9 , hematocrit 32.3. Remainder of elect lites are fine including creatinine troponin is negative cardiac enzymes unremarkable. guaiac. neg anemia workup pending, ordered. review of prior notes, last echo in 2017 with unremarkable echo, neg stress test , EF 73%. admit for syncope, tele, anemia. admitting to Dr Stephens s/o to Dr Mitchell resident. 03/03/19 18:48
--- NOTE | 2019-03-03 16:56 | PDOC ---
History of Present Illness - General History Source: Patient Exam Limitations: No Limitations - History of Present Illness Initial Comments: 03/03/19 16:51 88 yo F with a hx of HTN and HLD presents to the emergency department with syncope that occurred at approximately 3:15 pm. Per the patient, she states she was in her kitchen working on a flower arrangement when she had sudden onset of global weakness, diaphoretic, and nausea. The patient had a witnessed LOC by her son and daughter, and was subsequently caught by her son. She had return of consciousness after approximately 5-10 seconds. Denies the following antecedent symptoms to the event: fever, chills, palpitations, chest pain, SOB, dizziness, lightheadedness, headaches, and neck pain. Endorses having bilateral blurry vision at the time of the event but currently doing fine. Per the patient, she states she does not drink water and feels "dry". Allergies: NKDA Social: Denies tobacco, alcohol, and substance abuse. Meds: atorvastatin, amlodipine, and trazadone. Endorses using aspirin <Madan Nugent - Last Filed: 03/03/19 16:51> <Amber Morillo - Last Filed: 03/03/19 17:54> - General Chief Complaint: Syncope/Near Syncope Stated Complaint: SYNCOPE/NEAR SYNCOPE Time Seen by Provider: 03/03/19 15:54 Past History - Past Medical History Anemia: No Asthma: No Cancer: No Cardiac Disorders: No COPD: No CHF: No Dementia: No Diabetes: No GI Disorders: No Disorders: No HTN: Yes Hypercholesterolemia: Yes Liver Disease: No Seizures: No Thyroid Disease: No - Psycho Social/Smoking Cessation Hx Smoking History: Unknown if ever smoked Have you smoked in the past 12 months: No Information on smoking cessation initiated: No Hx Alcohol Use: No Drug/Substance Use Hx: No Substance Use Type: None Hx Substance Use Treatment: No <Madan Nugent - Last Filed: 03/03/19 16:51> <Amber Morillo - Last Filed: 03/03/19 17:54> - Past Medical History Allergies/Adverse Reactions: Allergies Allergy/AdvReac Type Severity Reaction Status Date / Time No Known Allergies Allergy Verified 03/03/19 15:32 Home Medications: Ambulatory Orders Amlodipine Besylate [Norvasc -] 5 mg PO DAILY 09/30/14 Ezetimibe/Simvastatin [Vytorin 10-20 mg Tablet] 1 tab PO HS 09/30/14 Acetaminophen [Tylenol .Regular Strength -] 650 mg PO Q4H PRN #0 tablet Aspirin Coated [Ecotrin -] 81 mg PO DAILY #30 tab 11/28/16 Atorvastatin Ca [Lipitor] 10 mg PO HS #30 tablet 11/28/16 traZODone HCL [Desyrel -] 25 mg PO HS PRN #30 tablet 11/28/16 Review of Systems - Review of Systems Able to Perform ROS?: Yes Is the patient limited Danish proficient: No Constitutional: Yes: Weakness. No: Chills, Diaphoresis, Fever HEENTM: Yes: Ear Pain (right ear). No: Eye Pain, Nose Pain, Nose Congestion, Throat Pain, Throat Swelling, Mouth Pain Respiratory: No: Cough, Shortness of Breath, Hemoptysis Cardiac (ROS): Yes: Syncope. No: Chest Pain, Lightheadedness, Palpitations ABD/GI: No: Constipated, Diarrhea, Nausea, Rectal Bleeding, Vomiting, Tarry Stools : No: Burning, Dysuria, Incontinence, Pain Musculoskeletal: No: Back Pain, Neck Pain <Madan Nugent - Last Filed: 03/03/19 16:51> *Physical Exam - Vital Signs Last Vital Signs Temp Pulse Resp BP Pulse Ox 98.2 F 81 16 136/77 96 03/03/19 15:29 03/03/19 15:29 03/03/19 15:29 03/03/19 15:29 03/03/19 15:29 <Madan Nugent - Last Filed: 03/03/19 16:51> - Vital Signs Last Vital Signs Temp Pulse Resp BP Pulse Ox 98.2 F 81 16 136/77 96 03/03/19 15:29 03/03/19 15:29 03/03/19 15:29 03/03/19 15:29 03/03/19 15:29 <Amber Morillo - Last Filed: 03/03/19 17:54> ED Treatment Course - LABORATORY CBC & Chemistry Diagram: 03/03/19 16:20 03/03/19 16:20 - ADDITIONAL ORDERS Additional order review: 03/03/19 16:20 RBC 4.49 MCV 71.9 L MCHC 30.8 L RDW 16.7 H MPV 7.4 L Neutrophils % 78.9 D Lymphocytes % 13.0 D Monocytes % 6.1 Eosinophils % 1.4 Basophils % 0.6 <Madan Nugent - Last Filed: 03/03/19 16:51> - LABORATORY CBC & Chemistry Diagram: 03/03/19 16:20 03/03/19 16:20 - ADDITIONAL ORDERS Additional order review: Laboratory Results 03/03/19 03/03/19 16:20 16:20 Sodium 139 Potassium 3.7 Chloride 107 Carbon Dioxide 25 Anion Gap 7 L BUN 27.4 H Creatinine 1.1 Est GFR (CKD-EPI)AfAm 52.28 Est GFR (CKD-EPI)NonAf 45.11 Random Glucose 95 Calcium 9.5 Total Bilirubin 0.3 AST 20 ALT 18 Alkaline Phosphatase 53 Creatine Kinase 56 Troponin I < 0.02 Total Protein 7.1 Albumin 3.8 03/03/19 16:20 RBC 4.49 MCV 71.9 L MCHC 30.8 L RDW 16.7 H MPV 7.4 L Neutrophils % 78.9 D Lymphocytes % 13.0 D Monocytes % 6.1 Eosinophils % 1.4 Basophils % 0.6 - RADIOLOGY Radiology Studies Ordered: Category Date Time Status CHEST X-RAY PORTABLE* [RAD] Stat Radiology 03/03/19 15:32 Taken - Medications Given in the ED: ED Medications Discontinued Medications Generic Name Dose Route Start Last Admin Trade Name Freq PRN Reason Stop Dose Admin Sodium Chloride 1,000 mls @ 1,000 mls/hr 03/03/19 16:24 03/03/19 16:55 Normal Saline - IV 03/03/19 17:23 1,000 mls/hr ASDIR STA Administration <Amber Morillo - Last Filed: 03/03/19 17:54> Discharge <Madan Nugent - Last Filed: 03/03/19 16:51> - Discharge Information Problems reviewed: Yes - Admission Yes <Amber Morillo - Last Filed: 03/03/19 17:54> - Discharge Information Clinical Impression/Diagnosis: Syncope and collapse, Anemia Condition: Fair - Follow up/Referral Referrals: Marixa Gaspar MD [Primary Care Provider] - - Patient Discharge Instructions - Post Discharge Activity
[2019-03-03 17:11] LABS: ALBUMIN 3.8 g/dl (3.4-5.0); BILIRUBIN,TOTAL 0.3 mg/dL (0.2-1); BLOOD UREA NITROGEN 27.4 mg/dL (7-18); CALCIUM 9.5 mg/dL (8.5-10.1); CREATININE 1.1 mg/dL (0.55-1.3); POTASSIUM 3.7 mmol/L (3.5-5.1); TOT PROT 7.1 g/dl (6.4-8.2)
[2019-03-03 18:00] LABS: RETICULOCYTES 0.96 % (0.5-1.5)
[2019-03-03 18:38] LABS: EPI CELLS 5.2 /HPF (0-5/HPF); HYALINE CASTS 12 /lpf (0-8); URINE APPEARANCE CLEAR; URINE BACTERIA 12.5 /hpf (NEGATIVE); URINE BILIRUBIN NEGATIVE (NEGATIVE); URINE COLOR YELLOW; URINE GLUCOSE (UA) NEGATIVE (NEGATIVE); URINE KETONE TRACE (NEGATIVE); URINE LEUK ESTERASE 1+ (NEGATIVE); URINE NITRITE NEGATIVE (NEGATIVE); URINE PROTEIN 1+ (NEGATIVE); URINE RBC 0 /hpf (0-4); URINE UROBILINOGEN 0.2 mg/dL (0.2-1.0); URINE WBC 4 /hpf (0-5)
--- NOTE | 2019-03-03 19:20 | PN ---
Teaching Attending Note Name of Resident: Stacy Ramos ATTENDING PHYSICIAN STATEMENT I saw and evaluated the patient. I reviewed the resident's note and discussed the case with the resident. I agree with the resident's findings and plan as documented. SUBJECTIVE: Patient is an 88 year old woman with a PMH of HTN and HLD presents to the ER with syncope that occurred at approximately 3:15 pm. She was in her kitchen working on a flower arrangement when she had sudden onset of global weakness, diaphoretic, and nausea. The patient had a witnessed LOC by her son and daughter , and was subsequently caught by her son. She had return of consciousness after approximately 5-10 seconds. Denies antecedent fever, chills, palpitations, chest pain, SOB, dizziness, lightheadedness, headaches or neck pain. Endorses having bilateral blurry vision at the time of the event but currently doing fine. Has had burning urination for about 1 week. Also has constipation. Per the patient, she states she does not drink water and feels "dry". Denies tobacco , alcohol, or illicit drug use. OBJECTIVE: Alert and not orthostatic Vital Signs Period Temp Pulse Resp BP Sys/Brown Pulse Ox Last 24 Hr 98.2 F 74-88 16 136-146/70-77 96 HEENT: No Jaundice, eye redness or discharge, PERRLA, EOMI. Normocephalic, atraumatic. External ears are normal and hearing is grossly intact. No nasal discharge. Neck: Supple, nontender. No palpable adenopathy or thyromegaly. No JVD Chest: Good effort. Clear to auscultation and percussion. Heart: Regular. No S3, rub or murmur Abdomen: RLQ and epigastric tenderness; not distended, soft, no HSM. No rebound or guarding. Normal bowel sounds. External hemorrhoids noted on CHIDI. Ext: Peripheral pulses intact. No leg edema. Skin: Warm and dry. No petechiae, rash or ecchymosis. Neuro: Alert. Oriented x3. CN 2-12 grossly intact. Sensation grossly intact in all four extremities and DTR are symmetric. Psych: Appropriate mood and affect. Good insight. Home Medications Medication Instructions Recorded Amlodipine Besylate [Norvasc -] 5 mg PO DAILY 09/30/14 Ezetimibe/Simvastatin [Vytorin 1 tab PO HS 09/30/14 10-20 mg Tablet] Acetaminophen [Tylenol .Regular 650 mg PO Q4H PRN #0 tablet 11/28/16 Strength -] Aspirin Coated [Ecotrin -] 81 mg PO DAILY #30 tab 11/28/16 Atorvastatin Ca [Lipitor] 10 mg PO HS #30 tablet 11/28/16 traZODone HCL [Desyrel -] 25 mg PO HS PRN #30 tablet 11/28/16 Abnormal Lab Results 03/03/19 03/03/19 03/03/19 16:20 16:20 18:03 WBC 11.2 H Hgb 9.9 L Hct 32.3 L MCV 71.9 L MCH 22.1 L MCHC 30.8 L RDW 16.7 H MPV 7.4 L Absolute Neuts (auto) 8.8 H Anion Gap 7 L BUN 27.4 H Iron 14 L Iron Saturation 3 L Unsaturated IBC 345 H Ferritin 6.8 L Urine Protein Urine Ketones Ur Leukocyte Esterase 03/03/19 18:20 WBC Hgb Hct MCV MCH MCHC RDW MPV Absolute Neuts (auto) Anion Gap BUN Iron Iron Saturation Unsaturated IBC Ferritin Urine Protein 1+ H Urine Ketones Trace H Ur Leukocyte Esterase 1+ H ASSESSMENT AND PLAN: 1. Syncope/Iron deficiency anemia/UTI - Etiology of syncope is unclear. The combination of UTI and dehydration superimposed on anemia may have resulted in syncope. No acute abnormality on CXR and EKG shows NSR with t wave inversion in III and V1 - unchanged from prior EKG. Stool guaiac is negative. Will get head and abdomen/pelvis CT scan, ECHO, carotid doppler, hydrate gently and treat UTI with IV Rocephin. Treat with IV venofer 500 mg x 2 doses, IV protonix and consult GI. Implement fall precautions. Will continue comprehensive care for all of patients comorbid conditions. 2. CLARK - Likely dehydrated. Hydrate gently and monitor urine output. Will avoid nephrotoxic agents such as NSAIDS, aminoglycosides, contrast dyes and certain Alternative medicine products. 3. Hypertension - Restart suitable outpatient antihypertensive drugs when clinically appropriate. 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 Nonpharmacologic measures to control hypertension like weight loss , salt restriction and exercise discussed. Importance of adherence to treatment regimen and attainment of normotension emphasized. 4. DVT prophylaxis - SCD 5. Advance directives - Full code
--- NOTE | 2019-03-03 21:10 | HP ---
CHIEF COMPLAINT: syncope PCP: Dr. Gaspar HISTORY OF PRESENT ILLNESS: Pt is a 88 y/o F w/ pmhx of HTN, HLD, and glaucoma presenting to ED complaining of syncope onset this afternoon. Pt reports she was preparing for dinner when she suddenly started sweating and felt like she was under water. Her son helped her to the couch and then observed that her eyes rolled back and she loss consciousness for a few seconds. When pt gained consciousness, she felt nauseous, her vision was blurry, and she had a headache. Pt reports she does not drink much water and that she has never felt like this before. Pt also complaining of constipation (relieved by plum juice) and burning sensation while urinating. She reports she went to Urgent care in September 2018, where she was diagnosed with a UTI and send home with Abx. Pt does endorse incontinence since getting prolapse surgery in May but denies incontinence during the syncope episode. Pt denies seizure like activity, cough, SOB, chest pain, or abdominal pain. Nothing improved or worsened the symptoms. Pt had an unremarkable colonoscopy in 2014 and an unremarkable ECHO a couple months ago. ER course was notable for: (1) EKG and CXR unchanged from previous ST depressions in III and V1 (2) FOBT negative (3) Iron studies with low Fe (14) and low ferritin. 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 Residence: Pt lives alone in a house but her children visit her, pt is very independent, does not use cane or walker when walking Fhx: Father: Liver CA; Mother: none Allergies No Known Allergies Allergy (Verified 03/03/19 15:32) HOME MEDICATIONS: Home Medications Medication Instructions Recorded Amlodipine Besylate [Norvasc -] 5 mg PO DAILY 09/30/14 Ezetimibe/Simvastatin [Vytorin 1 tab PO HS 09/30/14 10-20 mg Tablet] Acetaminophen [Tylenol .Regular 650 mg PO Q4H PRN #0 tablet 11/28/16 Strength -] Aspirin Coated [Ecotrin -] 81 mg PO DAILY #30 tab 11/28/16 Atorvastatin Ca [Lipitor] 10 mg PO HS #30 tablet 11/28/16 traZODone HCL [Desyrel -] 25 mg PO HS PRN #30 tablet 11/28/16 REVIEW OF SYSTEMS CONSTITUTIONAL: diaphoresis, Absent: fever, chills, generalized weakness, malaise, loss of appetite, weight change HEENT: Absent: rhinorrhea, nasal congestion, throat pain, throat swelling, difficulty swallowing, mouth swelling, ear pain, eye pain, visual changes CARDIOVASCULAR: Absent: chest pain, syncope, palpitations, irregular heart rate, lightheadedness , peripheral edema RESPIRATORY: Absent: cough, shortness of breath, dyspnea with exertion, orthopnea, wheezing, stridor, hemoptysis GASTROINTESTINAL: nausea, Absent: abdominal pain, abdominal distension, vomiting, diarrhea, constipation , melena, hematochezia GENITOURINARY: dysuria, Absent: frequency, urgency, hesitancy, hematuria, flank pain, genital pain MUSCULOSKELETAL: Absent: myalgia, arthralgia, joint swelling, back pain, neck pain SKIN: Absent: rash, itching, pallor HEMATOLOGIC/IMMUNOLOGIC: Absent: easy bleeding, easy bruising, lymphadenopathy, frequent infections ENDOCRINE: Absent: unexplained weight gain, unexplained weight loss, heat intolerance, cold intolerance NEUROLOGIC: Absent: headache, focal weakness or paresthesias, dizziness, unsteady gait, seizure, mental status changes, bladder or bowel incontinence PSYCHIATRIC: Absent: anxiety, depression, suicidal or homicidal ideation, hallucinations. PHYSICAL EXAMINATION Vital Signs - 24 hr 03/03/19 03/03/19 15:29 16:51 Temperature 98.2 F Pulse Rate 81 Pulse Rate [ 82 Left side Sitting] Pulse Rate [ 88 Standing] Pulse Rate [ 74 Supine] Respiratory 16 Rate Blood Pressure 136/77 Blood Pressure 143/75 [Left side Sitting] Blood Pressure 146/70 [Standing] Blood Pressure 141/75 [Supine] O2 Sat by Pulse 96 Oximetry (%) GENERAL: Awake, alert, and fully oriented, in no acute distress. HEAD: Normal with no signs of trauma. EYES: Pupils equal, round and reactive to light, extraocular movements intact, sclera anicteric, conjunctiva clear. No lid lag. EARS, NOSE, THROAT: Ears normal, nares patent, oropharynx clear without exudates. Moist mucous membranes. NECK: Normal range of motion, supple without lymphadenopathy, JVD, or masses. LUNGS: Breath sounds equal, clear to auscultation bilaterally. No wheezes, and no crackles. No accessory muscle use. HEART: Regular rate and rhythm, normal S1 and S2 without murmur. ABDOMEN: Soft, ttp in the RLQ and RUQ, TTP in LLQ with referred tenderness to RLQ, not distended, normoactive bowel sounds. RECTAL: external hemorrhoids visible, normal rectal tone, impacted stool felt in rectal vault, brown stool visible on glove MUSCULOSKELETAL: Normal range of motion at all joints. No bony deformities or tenderness. No CVA tenderness. UPPER EXTREMITIES: 2+ pulses, warm, well-perfused. No cyanosis. No clubbing. No peripheral edema. LOWER EXTREMITIES: 2+ pulses, warm, well-perfused. No calf tenderness. Trace peripheral edema to the knees. NEUROLOGICAL: Cranial nerves II-XII intact. Normal speech. PSYCHIATRIC: Cooperative. Good eye contact. Appropriate mood and affect. SKIN: Warm, dry, normal turgor, no rashes or lesions noted, normal capillary refill. Laboratory Results - last 24 hr 03/03/19 03/03/19 03/03/19 16:20 16:20 16:20 WBC 11.2 H RBC 4.49 Hgb 9.9 L Hct 32.3 L MCV 71.9 L MCH 22.1 L MCHC 30.8 L RDW 16.7 H Plt Count 362 D MPV 7.4 L Absolute Neuts (auto) 8.8 H Neutrophils % 78.9 D Lymphocytes % 13.0 D Monocytes % 6.1 Eosinophils % 1.4 Basophils % 0.6 Nucleated RBC % 0 Retic Count 0.96 Sodium 139 Potassium 3.7 Chloride 107 Carbon Dioxide 25 Anion Gap 7 L BUN 27.4 H Creatinine 1.1 Est GFR (CKD-EPI)AfAm 52.28 Est GFR (CKD-EPI)NonAf 45.11 Random Glucose 95 Calcium 9.5 Iron 14 L TIBC 359 Iron Saturation 3 L Unsaturated IBC 345 H Ferritin Total Bilirubin 0.3 AST 20 ALT 18 Alkaline Phosphatase 53 LD Total 178 Creatine Kinase 56 Troponin I < 0.02 Total Protein 7.1 Albumin 3.8 Urine Color Urine Appearance Urine pH Ur Specific [place] Urine Protein Urine Glucose (UA) Urine Ketones Urine Blood Urine Nitrite Urine Bilirubin Urine Urobilinogen Ur Leukocyte Esterase Urine WBC (Auto) Urine RBC (Auto) Urine Casts (Auto) U Epithel Cells (Auto) Urine Bacteria (Auto) Stool Occult Blood Blood Type Antibody Screen 03/03/19 03/03/19 03/03/19 17:44 18:03 18:03 WBC RBC Hgb Hct MCV MCH MCHC RDW Plt Count MPV Absolute Neuts (auto) Neutrophils % Lymphocytes % Monocytes % Eosinophils % Basophils % Nucleated RBC % Retic Count Sodium Potassium Chloride Carbon Dioxide Anion Gap BUN Creatinine Est GFR (CKD-EPI)AfAm Est GFR (CKD-EPI)NonAf Random Glucose Calcium Iron TIBC Iron Saturation Unsaturated IBC Ferritin 6.8 L Total Bilirubin AST ALT Alkaline Phosphatase LD Total Creatine Kinase Troponin I Total Protein Albumin Urine Color Urine Appearance Urine pH Ur Specific [place] Urine Protein Urine Glucose (UA) Urine Ketones Urine Blood Urine Nitrite Urine Bilirubin Urine Urobilinogen Ur Leukocyte Esterase Urine WBC (Auto) Urine RBC (Auto) Urine Casts (Auto) U Epithel Cells (Auto) Urine Bacteria (Auto) Stool Occult Blood Negative Blood Type O POSITIVE Antibody Screen Negative 03/03/19 18:20 WBC RBC Hgb Hct MCV MCH MCHC RDW Plt Count MPV Absolute Neuts (auto) Neutrophils % Lymphocytes % Monocytes % Eosinophils % Basophils % Nucleated RBC % Retic Count Sodium Potassium Chloride Carbon Dioxide Anion Gap BUN Creatinine Est GFR (CKD-EPI)AfAm Est GFR (CKD-EPI)NonAf Random Glucose Calcium Iron TIBC Iron Saturation Unsaturated IBC Ferritin Total Bilirubin AST ALT Alkaline Phosphatase LD Total Creatine Kinase Troponin I Total Protein Albumin Urine Color Yellow Urine Appearance Clear Urine pH 5.0 Ur Specific [place] 1.015 Urine Protein 1+ H Urine Glucose (UA) Negative Urine Ketones Trace H Urine Blood Negative Urine Nitrite Negative Urine Bilirubin Negative Urine Urobilinogen 0.2 Ur Leukocyte Esterase 1+ H Urine WBC (Auto) 4 Urine RBC (Auto) 0 Urine Casts (Auto) 12 U Epithel Cells (Auto) 5.2 Urine Bacteria (Auto) 12.5 Stool Occult Blood Blood Type Antibody Screen ASSESSMENT/PLAN: Pt is a 88 y/o F w/ pmhx of HTN, HLD, and glaucoma presenting to ED complaining of syncope onset this afternoon. #Syncope Etiology of syncope is unclear. On admission the patient was also complaining of dysuria with lekocytosis of 11.2 and 1+ LE on UA. While her UA alone is not concerning for UTI since she is symptomatic, we will treat for a UTI. She was also found to have iron deficiency anemia and in combination with dehydration (the patient reports she drinks very little water) and possible UTI may have resulted in syncope. No acute abnormality on CXR and EKG shows NSR with t wave inversion in III and V1 - unchanged from prior EKG. Stool guaiac is negative. - Will get head and abdomen/pelvis CT scan - ECHO - carotid doppler - hydrate gently - fall precautions # UTI - IV Rocephin 1g Daily # Iron deficiency anemia- patient denies any hx of ulcers but has never had an endoscop, uses ASA 81 daily and has elevated BUN without elevated Cr which could be concerning for UGIB. Pt also reports she recently had blood work done at her PCP and did not have anemia at that time, though she did mention she took Fe supplements once 40 years ago so there may be a history of iron deficiency anemia - IV venofer 500 mg x 2 doses - IV protonix - consult GI. #CLARK Likely dehydrated. - IV NS @ 83cc/h - monitor urine output - avoid nephrotoxic agents such as NSAIDS, aminoglycosides, contrast dyes and certain Alternative medicine products. # HTN - Restart suitable outpatient antihypertensive drugs when clinically appropriate. - Consider starting patient on ACEi on discharge/ once acute issues are resolved as pt is currently only on one BP med abd has trace edema in her legs ( may be 2/2 norvasc) #FEN - IV NS@ 83cc/h - replete PRN - NPO, incase pt has GI bleed/ needs to be scoped tomorrow #DVT ppx - SCDs for now until GI bleed r/o - Protonix 40mg IV BID # Dispo- admit to tele, full code Visit type - Emergency Visit Emergency Visit: Yes ED Registration Date: 03/03/19 Care time: The patient presented to the Emergency Department on the above date and was hospitalized for further evaluation of their emergent condition. - New Patient This patient is new to me today: Yes Date on this admission: 03/04/19 - Critical Care Critical Care patient: No ATTENDING PHYSICIAN STATEMENT I saw and evaluated the patient. I reviewed the resident's note and discussed the case with the resident. I agree with the resident's findings and plan as documented. SUBJECTIVE: OBJECTIVE: ASSESSMENT AND PLAN:
[2019-03-03] MEDS ORDERED: SODIUM CHLORIDE 1,000 ML IV SCH (21:15)
[2019-03-03] MEDS ORDERED: IRON SUCROSE INJECTION 500 MG in SODIUM CHLORIDE 225 ML IVPB ONE ×2 (21:27→21:28)
[2019-03-03] MEDS ORDERED: HEPARIN NA (PORCINE) 5,000 UNITS/ML 1ML VIAL SQ SCH (21:30)
[2019-03-03] MEDS ORDERED: CEFTRIAXONE 1 GM/50 ML BAG ONE (21:48)
[2019-03-03] MEDS ORDERED: PANTOPRAZOLE SODIUM 40 MG VIAL ONE (21:49)
[2019-03-03] MEDS: CEFTRIAXONE 1 GM in DEXTROSE 5%-WATER - 50 ML IVPB SCH (21:57)
[2019-03-03] MEDS ORDERED: IRON SUCROSE INJECTION 300 MG in SODIUM CHLORIDE 250 ML IVPB ONE (22:00)
[2019-03-03] MEDS: PANTOPRAZOLE SODIUM 40 MG VIAL IVPUSH SCH (22:15)
[2019-03-04] MEDS ORDERED: GLYCERIN 1 RECTAL SUPPOSITORY, ADULT RC ONE (05:49)
[2019-03-04] MEDS ORDERED: IRON SUCROSE INJECTION 300 MG in SODIUM CHLORIDE 250 ML IVPB ONE (06:00)
[2019-03-04 07:03] LABS: BASO % 0.7 % (0-2.0); HEMATOCRIT 26.3 % (32.4-45.2); HEMOGLOBIN 8.3 GM/dL (10.7-15.3); LYMPH % 26.3 % (8-40); MCHC 31.8 g/dl (32.0-36.0); MEAN CELL VOLUME 72.3 fl (80-96); MEAN PLT VOLUME 7.8 fl (7.5-11.1); MONO % 8.3 % (3.8-10.2); NEUT % 60.7 % (42.8-82.8); PLATELET COUNT 319 K/MM3 (134-434); RBC 3.63 M/mm3 (3.60-5.2); RDW 16.7 % (11.6-15.6); WHITE BLOOD COUNT 6.1 K/mm3 (4.0-10.0)
[2019-03-04 07:42] LABS: ALBUMIN 3.2 g/dl (3.4-5.0); BILIRUBIN,TOTAL 0.5 mg/dL (0.2-1); BLOOD UREA NITROGEN 17.9 mg/dL (7-18); CALCIUM 8.6 mg/dL (8.5-10.1); CREATININE 0.8 mg/dL (0.55-1.3); MAGNESIUM 2.1 mg/dL (1.8-2.4); PHOSPHOROUS 2.8 mg/dL (2.5-4.9); TOT PROT 6.2 g/dl (6.4-8.2)
[2019-03-04] MEDS ORDERED: cefTRIAXone SODIUM 1 GM VIAL ONE (08:47)
[2019-03-04] MEDS ORDERED: DEXTROSE 5%-WATER - 50 ML IVPB ONE (08:47)
[2019-03-04] MEDS: PANTOPRAZOLE SODIUM 40 MG VIAL IVPUSH SCH (09:02)
[2019-03-04] MEDS: CEFTRIAXONE 1 GM in DEXTROSE 5%-WATER - 50 ML IVPB SCH (09:02)
--- NOTE | 2019-03-04 09:19 | CON.CARD ---
Consult Consult Specialty:: Cardiology Referred by:: Hospitalist Medicine Reason for Consultation:: Syncope - History of Present Illness Chief Complaint: Syncope History of Present Illness: Patient is an 88 year old woman with a PMH of HTN and HLD presents to the ER with syncope that occurred preceded by prodrome of global weakness, dizziness, diaphoresis, nausea w/o emesis and visual scotoma. The patient had a witnessed LOC by her son and daughter, and was subsequently caught by her son. She had return of consciousness after approximately 5-10 seconds. Denies antecedent palpitations, chest pain, SOB. Per the patient, she states she does not drink water and feels "dry". Denies tobacco, alcohol, or illicit drug use, asymptomatic now post volume resuscitation. 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 History of Recent Travel: No Home Medications - Allergies Allergies/Adverse Reactions: Allergies Allergy/AdvReac Type Severity Reaction Status Date / Time No Known Allergies Allergy Verified 03/03/19 15:32 - Home Medications Home Medications: Ambulatory Orders Amlodipine Besylate [Norvasc -] 5 mg PO DAILY 09/30/14 Ezetimibe/Simvastatin [Vytorin 10-20 mg Tablet] 1 tab PO HS 09/30/14 Acetaminophen [Tylenol .Regular Strength -] 650 mg PO Q4H PRN #0 tablet Aspirin Coated [Ecotrin -] 81 mg PO DAILY #30 tab 11/28/16 Atorvastatin Ca [Lipitor] 10 mg PO HS #30 tablet 11/28/16 traZODone HCL [Desyrel -] 25 mg PO HS PRN #30 tablet 11/28/16 Tolterodine Tartrate LA [Detrol LA -] 1 tablet PO DAILY 03/04/19 Review of Systems - Review of Systems Constitutional: reports: Weakness Eyes: reports: Blurred Vision Gastrointestinal: reports: Nausea Neurological: reports: Dizziness, Syncope, Weakness Vital Signs: Vital Signs Temperature 97.5 F L 03/04/19 06:00 Pulse Rate 62 03/04/19 06:00 Respiratory Rate 20 03/04/19 06:00 Blood Pressure 137/53 L 03/04/19 06:00 O2 Sat by Pulse Oximetry (%) 96 03/04/19 04:10 Constitutional: Yes: No Distress, Calm Neck: Yes: Supple Respiratory: Yes: Regular, CTA Bilaterally Gastrointestinal: Yes: Normal Bowel Sounds, Soft Cardiovascular: Yes: Regular Rate and Rhythm JVD: No Carotid Bruit: No Heart Sounds: Yes: S1, S2 Murmur: Yes: Systolic Murmur, Grade 1 Edema: No - Other Data Labs, Other Data: CBC, BMP 03/04/19 05:35 03/04/19 05:35 Troponin, BNP 03/03/19 16:20 Troponin I < 0.02 Troponin, BNP 03/03/19 16:20 Troponin I < 0.02 NSR @ 80 min criteria LVH inferior Q Echo: Pending Ejection Fraction %: LVEF > or = 40 % Imaging - Results Chest X-ray: Report Reviewed (NAD) Cat Scan: Report Reviewed (HCT: No acute changes) Ultrasound: Report Reviewed (No sig carotid stenosis) Problem List - Problems (1) Syncope and collapse Code(s): R55 - SYNCOPE AND COLLAPSE (2) Hyperlipemia Code(s): E78.5 - HYPERLIPIDEMIA, UNSPECIFIED Qualifiers: Hyperlipidemia type: pure hypercholesterolemia Qualified Code(s): E78.00 - Pure hypercholesterolemia, unspecified (3) Hypertension Code(s): I10 - ESSENTIAL (PRIMARY) HYPERTENSION Qualifiers: Hypertension type: essential hypertension Qualified Code(s): I10 - Essential (primary) hypertension Assessment/Plan 03/04/2019 Echo: Normal LV and RV size and fxn LVEF 55-60%, normal atrial sizes , mild-mod MR, mild AR, tr TR 11/26/2016 Transthoracic echocardiography reveals normal LV systolic function, mild MR, mild AR and LA 11/28/2016 Nuclear myocardial perfusion imaging study reveals small zone of inferior fixed compatible with attenuation and LVEF 73% 1. Neurocardiogenic syncope with typical prodromal symptoms 2. Anemia 3. UTI 4. CLARK due to hypovolemia resolved 5. Hypertensive heart disease 6. Hyperlipidemia P:1. Check orthostatic VS, monitor telemetry for bradycardia, pauses, AV blocks 2. Continue Norvasc 5 qd, ASA 81 qd, Lipitor 10 qhs, empiric abx course 3. Addressed abortive maneuvers once prodromal sxs experienced 4. Upright tilt table testing as outpatient 5. Thank you for consultative opportunity, f/u in office
--- NOTE | 2019-03-04 09:32 | PN ---
Teaching Attending Note Name of Resident: Ángel Combs ATTENDING PHYSICIAN STATEMENT I saw and evaluated the patient. I reviewed the resident's note and discussed the case with the resident. I agree with the resident's findings and plan as documented. SUBJECTIVE: Patient is feeling better now. no fever or chills. Vital Signs Temperature 97.5 F L 03/04/19 06:00 Pulse Rate 62 03/04/19 06:00 Respiratory Rate 20 03/04/19 06:00 Blood Pressure 137/53 L 03/04/19 06:00 O2 Sat by Pulse Oximetry (%) 96 03/04/19 04:10 GENERAL: The patient is awake, alert, and fully oriented, in no acute distress. HEAD: Normal with no signs of trauma. EYES: PERRL, extraocular movements intact, sclera anicteric, conjunctiva clear. ENT: Ears normal, oropharynx clear without exudates, moist mucous membranes. NECK: Trachea midline, full range of motion, supple. LUNGS: Breath sounds equal, clear to auscultation bilaterally, no wheezes, no crackles, no accessory muscle use. HEART: Regular rate and rhythm, S1, S2 positve, GARY 1/6 , no rub or gallop. ABDOMEN: Soft, Nt, ND, normoactive bowel sounds, no guarding, no rebound, no hepatosplenomegaly, no masses. EXTREMITIES: 2+ pulses, warm, well-perfused, no edema. NEUROLOGICAL: Cranial nerves II through XII grossly intact. Normal speech, gait not observed. PSYCH: Normal mood, normal affect. SKIN: Warm, dry, normal turgor, no rashes or lesions noted CBCD WBC 6.1 K/mm3 (4.0-10.0) 03/04/19 05:35 RBC 3.63 M/mm3 (3.60-5.2) 03/04/19 05:35 Hgb 8.3 GM/dL (10.7-15.3) L 03/04/19 05:35 Hct 26.3 % (32.4-45.2) L D 03/04/19 05:35 MCV 72.3 fl (80-96) L 03/04/19 05:35 MCHC 31.8 g/dl (32.0-36.0) L 03/04/19 05:35 RDW 16.7 % (11.6-15.6) H 03/04/19 05:35 Plt Count 319 K/MM3 (134-434) 03/04/19 05:35 MPV 7.8 fl (7.5-11.1) 03/04/19 05:35 CMP Sodium 142 mmol/L (136-145) 03/04/19 05:35 Potassium 4.0 mmol/L (3.5-5.1) 03/04/19 05:35 Chloride 112 mmol/L (98-107) H 03/04/19 05:35 Carbon Dioxide 27 mmol/L (21-32) 03/04/19 05:35 Anion Gap 4 MMOL/L (8-16) L 03/04/19 05:35 BUN 17.9 mg/dL (7-18) 03/04/19 05:35 Creatinine 0.8 mg/dL (0.55-1.3) 03/04/19 05:35 Random Glucose 84 mg/dL (74-106) 03/04/19 05:35 Calcium 8.6 mg/dL (8.5-10.1) 03/04/19 05:35 Total Bilirubin 0.5 mg/dL (0.2-1) 03/04/19 05:35 AST 15 U/L (15-37) 03/04/19 05:35 ALT 15 U/L (13-61) 03/04/19 05:35 Alkaline Phosphatase 46 U/L (45-117) 03/04/19 05:35 Total Protein 6.2 g/dl (6.4-8.2) L 03/04/19 05:35 Albumin 3.2 g/dl (3.4-5.0) L 03/04/19 05:35 CARDIAC ENZYMES Creatine Kinase 56 U/L (26-192) 03/03/19 16:20 Troponin I < 0.02 ng/ml (0.00-0.05) 03/03/19 16:20 Current Medications Generic Name Dose Route Start Last Admin Trade Name Freq PRN Reason Stop Dose Admin Sodium Chloride 1,000 mls @ 83 mls/hr 03/03/19 21:15 03/03/19 21:57 Normal Saline - IV 83 mls/hr ASDIR RAHUL Administration Ceftriaxone Sodium 1 gm/ 50 mls @ 100 mls/hr 03/03/19 21:30 03/04/19 09:02 Dextrose IVPB 100 mls/hr DAILY RAHUL Administration Protocol Pantoprazole Sodium 40 mg 03/03/19 22:00 03/04/19 09:02 Protonix Iv IVPUSH 40 mg BID RAHUL Administration Home Medications Medication Instructions Recorded Amlodipine Besylate [Norvasc -] 5 mg PO DAILY 09/30/14 Ezetimibe/Simvastatin [Vytorin 1 tab PO HS 09/30/14 10-20 mg Tablet] Acetaminophen [Tylenol .Regular 650 mg PO Q4H PRN #0 tablet 11/28/16 Strength -] Aspirin Coated [Ecotrin -] 81 mg PO DAILY #30 tab 11/28/16 Atorvastatin Ca [Lipitor] 10 mg PO HS #30 tablet 11/28/16 traZODone HCL [Desyrel -] 25 mg PO HS PRN #30 tablet 11/28/16 Urine Test Results Urine Color Yellow 03/03/19 18:20 Urine Appearance Clear 03/03/19 18:20 Urine pH 5.0 (5.0-8.0) 03/03/19 18:20 Ur Specific [place] 1.015 (1.010-1.035) 03/03/19 18:20 Urine Protein 1+ (NEGATIVE) H 03/03/19 18:20 Urine Glucose (UA) Negative (NEGATIVE) 03/03/19 18:20 Urine Ketones Trace (NEGATIVE) H 03/03/19 18:20 Urine Blood Negative (NEGATIVE) 03/03/19 18:20 Urine Nitrite Negative (NEGATIVE) 03/03/19 18:20 Urine Bilirubin Negative (NEGATIVE) 03/03/19 18:20 Ur Leukocyte Esterase 1+ (NEGATIVE) H 03/03/19 18:20 EKG shows NSR with t wave inversion in III and V1 - unchanged from prior EKG. Stool guaiac is negative. Ct abdomen and pelvis: reviewed Ascending colon wall thickening Assessment and plan; Pt is a 88 y/o F w/ pmhx of HTN, HLD, and glaucoma presenting to ED due to having syncopal event this afternoon. #Syncope: unclear etiology , will get neuro consult and cardio consult appreciated, echo reviewed, Carotid doppler reviewed. Neuro consult and cardio #Acute symptomatic UTI: IV Rocephin 1g Daily, will hold Detrol La, will follow the cx # Iron deficiency anemia: on IV venofer 500 mg x 1 dose given, IV protonix 40mg daily, GI consult appreciated and discussed with. #CLARK Likely due to dehydration , improving . # HTN: on Norvasc , will hold IVF since has elevated Blood pressure. DVT ppx: SCDs GI PPx: Protonix 40mg IV daily tele, full code possible colonoscopy on Monday
--- NOTE | 2019-03-04 10:07 | EKG ---
Test Reason : Blood Pressure : / mmHG Vent. Rate : 080 BPM Atrial Rate : 080 BPM P-R Int : 146 ms QRS Dur : 086 ms QT Int : 404 ms P-R-T Axes : 009 -02 006 degrees QTc Int : 465 ms NORMAL SINUS RHYTHM MINIMAL VOLTAGE CRITERIA FOR LVH, MAY BE NORMAL VARIANT ABNORMAL ECG WHEN COMPARED WITH ECG OF 26-NOV-2016 14:20, NO SIGNIFICANT CHANGE WAS FOUND Confirmed by ALISHA DAWN, TREY ([id number]) on 03/04/2019 10:07:03 AM Referred By: Confirmed By:TREY BRITO MD
--- NOTE | 2019-03-04 11:04 | ECHO ---
Name: PELATTI, STEPHAN Exam:Adult Echocardiogram Study Date: 03/04/2019 08:23 AM Age: 88 yrs Reason For Study: ef Height: 62 in Weight: 135 lb BSA: 1.6 m2 MMode/2D Measurements & Calculations IVSd: 1.0 cm Ao root diam: 2.8 cm LVIDd: 3.9 cm LA dimension: 3.5 cm LVIDs: 2.7 cm LVPWd: 0.82 cm EDV(Teich): 64.5 ml LVOT diam: 2.0 cm ESV(Teich): 27.6 ml LAV (MOD-bp): 34.7 ml Doppler Measurements & Calculations MV E max amarjit: 117.0 cm/sec Ao V2 max: 170.4 cm/sec MV A max amarjit: 129.5 cm/sec Ao max P.6 mmHg MV E/A: 0.90 AI P1/2t: 582.5 msec MV dec time: 0.15 sec MAIN(V,D): 2.1 cm2 AI max amarjit: 217.2 cm/sec LV V1 max P.7 mmHg AI max P.9 mmHg LV V1 max: 119.3 cm/sec AI dec slope: 109.2 cm/sec2 MR max amarjit: 537.9 cm/sec PA V2 max: 97.7 cm/sec MR max P.2 mmHg PA max P.8 mmHg Med Peak E' Amarjit: 5.1 cm/sec Med E/e': 22.9 Lat Peak E' Amarjit: 6.1 cm/sec Lat E/e': 19.2 Procedure A complete two-dimensional transthoracic echocardiogram was performed (2D, M-mode, Doppler and color flow Doppler). Left Ventricle The left ventricle is normal in size. Left ventricular systolic function is normal. Ejection Fraction = 55- 60%. No regional wall motion abnormalities noted. Right Ventricle The right ventricle is normal size. The right ventricular systolic function is normal. Atria The left atrial size is normal. LA volume index is 21 ml/m2. Right atrial size is normal. Mitral Valve There is mild mitral annular calcification. There is mild to moderate mitral regurgitation. Tricuspid Valve The tricuspid valve is normal in structure and function. There is trace tricuspid regurgitation. Aortic Valve There is mild aortic sclerosis.;. Mild aortic regurgitation. Pulmonic Valve The pulmonic valve is not well visualized. Great Vessels The aortic root is normal size. Pericardium/Pleura There is no pericardial effusion. Interpretation Summary The left ventricle is normal in size. Left ventricular systolic function is normal. No regional wall motion abnormalities noted. Ejection Fraction = 55-60%. The right ventricular systolic function is normal. The left atrial size is normal. Right atrial size is normal. There is mild mitral annular calcification. There is mild to moderate mitral regurgitation. There is trace tricuspid regurgitation. There is mild aortic sclerosis. Mild aortic regurgitation. There is no pericardial effusion. Previous study is not available for comparison Paulino Cline MD 03/04/2019 11:04 AM
--- NOTE | 2019-03-04 12:09 | PN ---
Physical Exam: SUBJECTIVE: Patient seen and examined 88 y/o F, pmh of htn, hld, glaucoma presented for syncope of a few minute duration associated with LOC and post syncopal symptoms including nausea and headaches. Currently pt is asymptomatic, afebrile, w/out c/o or issues. Pt reports no overnight event. Denies f/c/n/v/d/sob/chest pain. OBJECTIVE: Last Vital Signs Temp Pulse Resp BP Pulse Ox 97.5 F L 62 20 137/53 L 96 03/04/19 06:00 03/04/19 06:00 03/04/19 09:00 03/04/19 06:00 03/04/19 09:00 GENERAL: The patient is awake, alert, and fully oriented, in no acute distress. EYES: PERRL, extraocular movements intact, sclera anicteric, ENT: Oropharynx clear without exudates, moist mucous membranes. NECK: full range of motion, supple. LUNGS: Breath sounds equal, clear to auscultation bilaterally, no wheezes, no crackles, HEART: Regular rate and rhythm, S1, S2, 2/6 systolic murmur, no rub or gallop. ABDOMEN: Soft, nontender, nondistended, normoactive bowel sounds, no guarding EXTREMITIES: 2+ pulses, warm, no edema. PSYCH: Normal mood, normal affect. SKIN: Warm, dry Laboratory Results - last 24 hr WBC 6.1 K/mm3 (4.0-10.0) 03/04/19 05:35 RBC 3.63 M/mm3 (3.60-5.2) 03/04/19 05:35 Hgb 8.3 GM/dL (10.7-15.3) L 03/04/19 05:35 Hct 26.3 % (32.4-45.2) L D 03/04/19 05:35 MCV 72.3 fl (80-96) L 03/04/19 05:35 MCH 23.0 pg (25.7-33.7) L 03/04/19 05:35 MCHC 31.8 g/dl (32.0-36.0) L 03/04/19 05:35 RDW 16.7 % (11.6-15.6) H 03/04/19 05:35 Plt Count 319 K/MM3 (134-434) 03/04/19 05:35 MPV 7.8 fl (7.5-11.1) 03/04/19 05:35 Absolute Neuts (auto) 3.7 K/mm3 (1.5-8.0) 03/04/19 05:35 Neutrophils % 60.7 % (42.8-82.8) D 03/04/19 05:35 Lymphocytes % 26.3 % (8-40) D 03/04/19 05:35 Monocytes % 8.3 % (3.8-10.2) 03/04/19 05:35 Eosinophils % 4.0 % (0-4.5) D 03/04/19 05:35 Basophils % 0.7 % (0-2.0) 03/04/19 05:35 Nucleated RBC % 0 % (0-0) 03/04/19 05:35 Retic Count 0.96 % (0.5-1.5) 03/03/19 16:20 Sodium 142 mmol/L (136-145) 03/04/19 05:35 Potassium 4.0 mmol/L (3.5-5.1) 03/04/19 05:35 Chloride 112 mmol/L (98-107) H 03/04/19 05:35 Carbon Dioxide 27 mmol/L (21-32) 03/04/19 05:35 Anion Gap 4 MMOL/L (8-16) L 03/04/19 05:35 BUN 17.9 mg/dL (7-18) 03/04/19 05:35 Creatinine 0.8 mg/dL (0.55-1.3) 03/04/19 05:35 Est GFR (CKD-EPI)AfAm 76.83 03/04/19 05:35 Est GFR (CKD-EPI)NonAf 66.29 03/04/19 05:35 Random Glucose 84 mg/dL (74-106) 03/04/19 05:35 Hemoglobin A1c % 5.8 % (4.2-6.3) 03/04/19 05:35 Calcium 8.6 mg/dL (8.5-10.1) 03/04/19 05:35 Phosphorus 2.8 mg/dL (2.5-4.9) 03/04/19 05:35 Magnesium 2.1 mg/dL (1.8-2.4) 03/04/19 05:35 Iron 14 ug/dL (50-175) L 03/03/19 16:20 TIBC 359 ug/dL (250-450) 03/03/19 16:20 Iron Saturation 3 % (17.5-39) L 03/03/19 16:20 Unsaturated IBC 345 ug/dL (200-275) H 03/03/19 16:20 Ferritin 6.8 ng/ml (8-388) L 03/03/19 18:03 Total Bilirubin 0.5 mg/dL (0.2-1) 03/04/19 05:35 AST 15 U/L (15-37) 03/04/19 05:35 ALT 15 U/L (13-61) 03/04/19 05:35 Alkaline Phosphatase 46 U/L (45-117) 03/04/19 05:35 LD Total 178 U/L (84-246) 03/03/19 16:20 Creatine Kinase 56 U/L (26-192) 03/03/19 16:20 Troponin I < 0.02 ng/ml (0.00-0.05) 03/03/19 16:20 Total Protein 6.2 g/dl (6.4-8.2) L 03/04/19 05:35 Albumin 3.2 g/dl (3.4-5.0) L 03/04/19 05:35 Active Medications Current Medications Sodium Chloride (Normal Saline -) 1,000 mls @ 83 mls/hr IV ASDIR RAHUL Last Admin: 03/03/19 21:57 Dose: 83 mls/hr Ceftriaxone Sodium 1 gm/ (Dextrose) 50 mls @ 100 mls/hr IVPB DAILY RAHUL; Protocol Last Admin: 03/04/19 09:02 Dose: 100 mls/hr Pantoprazole Sodium (Protonix Iv) 40 mg IVPUSH BID RAHUL Last Admin: 03/04/19 09:02 Dose: 40 mg Home Medications Medication Instructions Recorded Amlodipine Besylate [Norvasc -] 5 mg PO DAILY 09/30/14 Ezetimibe/Simvastatin [Vytorin 1 tab PO HS 09/30/14 10-20 mg Tablet] Acetaminophen [Tylenol .Regular 650 mg PO Q4H PRN #0 tablet 11/28/16 Strength -] Aspirin Coated [Ecotrin -] 81 mg PO DAILY #30 tab 11/28/16 Atorvastatin Ca [Lipitor] 10 mg PO HS #30 tablet 11/28/16 traZODone HCL [Desyrel -] 25 mg PO HS PRN #30 tablet 11/28/16 Tolterodine Tartrate LA [Detrol LA 1 tablet PO DAILY 03/04/19 -] ASSESSMENT/PLAN: 88 y/o F, pmh of htn, hld, glaucoma presented for syncope of a few minute duration associated with LOC and post syncopal symptoms including nausea and headaches is admitted for syncope #Syncope- etiology unclear UA positive, 1+ LE CT a/p- Dr. Kramer radiologist- reported by phone- Concern for an Annular Constricting Lesion on the ascending colon. Consider enema or colonoscopy to investigate further. Pt also has fecal retention w/out impaction CT head negative Echo- no significant abnormalities, EF-60% Carotid doppler: moderate plaques on the right common carotid, mild plaques on the left common carotid Fall precaution Gentle hydration As per Cardio Continue Norvasc 5 qd, ASA 81 qd, Lipitor 10 qhs Addressed abortive maneuvers once prodromal sxs experienced Upright tilt table testing as outpatient #UTI UA positive, 1+ LE UCx- pending IV Rocephin 1g Daily #Iron def anemia Iron panel evident for iron def. IV venofer given IV protonix GI consulted- f/u Cardio consulted- f/u #[facility] Kidney fxn normalized #HTN cont home meds- amlodipine- held till reconciled #HLD atorvastatin cont #DVT ppx Scds b/l F: NS at 83 E: moniter lytes N: NPO for now Dispo: f/u GI and Cardio, CT a/p. Visit type - Emergency Visit Emergency Visit: Yes ED Registration Date: 03/03/19 Care time: The patient presented to the Emergency Department on the above date and was hospitalized for further evaluation of their emergent condition. - New Patient This patient is new to me today: Yes Date on this admission: 03/05/19 - Critical Care Critical Care patient: No - Discharge Referral Referred to [facility] Med P.C.: No ATTENDING PHYSICIAN STATEMENT I saw and evaluated the patient. I reviewed the resident's note and discussed the case with the resident. I agree with the resident's findings and plan as documented. SUBJECTIVE: OBJECTIVE: ASSESSMENT AND PLAN:
[2019-03-04] MEDS ORDERED: PROCHLORPERAZINE INJECTION 10 MG/2 ML VIAL IM PRN (16:12)
[2019-03-04] MEDS ORDERED: ONDANSETRON 4 MG/2 ML VIAL IVPUSH ONE (16:12)
[2019-03-04] MEDS ORDERED: ONDANSETRON 4 MG/2 ML VIAL ONE (16:30)
[2019-03-04 17:23] LABS: HEMATOCRIT 28.6 % (32.4-45.2); HEMOGLOBIN 8.8 GM/dL (10.7-15.3); MCH 22.3 pg (25.7-33.7); MCHC 30.8 g/dl (32.0-36.0); MEAN CELL VOLUME 72.3 fl (80-96); MEAN PLT VOLUME 7.8 fl (7.5-11.1); PLATELET COUNT 319 K/MM3 (134-434); RBC 3.95 M/mm3 (3.60-5.2); RDW 16.7 % (11.6-15.6); WHITE BLOOD COUNT 7.1 K/mm3 (4.0-10.0)
[2019-03-04] MEDS ORDERED: amLODIPine BESYLATE 5 MG TABLET (FP) PO ONE (18:09)
--- NOTE | 2019-03-04 19:52 | CON.GI ---
Consult Consult Specialty:: GI Referred by:: Hospitalist Service Reason for Consultation:: Anemia - History of Present Illness Chief Complaint: Syncope History of Present Illness: 88F with syncopal episode at home. Called to evaluate anemia. She has a microcytic anemia. The only blood work to compare was from 2017 and at that time hgb was normal with normal MCV. She denies nausea, vomiting, abdominal pain , rectal bleeding, melena. She denies unintentional weight loss. She describes being constipated of late with her last BM 4 days ago. There is no family history of colon cancer. She had a colonoscopy remotely. CT scan of the abdomen questioned concentric wall thickening in the right colon. She has been evaluated by cardiology who felt that her syncopal episode was neurocardiogenic in nature. Echo failed to reveal significant valvular heart disease to account for syncope. She takes ASA 81mg daily and occasional aleve. 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 Place of : [facility] History of Recent Travel: No Home Medications - Allergies Allergies/Adverse Reactions: Allergies Allergy/AdvReac Type Severity Reaction Status Date / Time No Known Allergies Allergy Verified 03/03/19 15:32 - Home Medications Home Medications: Ambulatory Orders Amlodipine Besylate [Norvasc -] 5 mg PO DAILY 09/30/14 Ezetimibe/Simvastatin [Vytorin 10-20 mg Tablet] 1 tab PO HS 09/30/14 Acetaminophen [Tylenol .Regular Strength -] 650 mg PO Q4H PRN #0 tablet Aspirin Coated [Ecotrin -] 81 mg PO DAILY #30 tab 11/28/16 Atorvastatin Ca [Lipitor] 10 mg PO HS #30 tablet 11/28/16 traZODone HCL [Desyrel -] 25 mg PO HS PRN #30 tablet 11/28/16 Tolterodine Tartrate LA [Detrol LA -] 1 tablet PO DAILY 03/04/19 Family Medical History Other Family History: Mother: : 99. Father: : cancer in his liver 63. 3 brothers: : CVA, ? CT. 2 sisters: 1 : 92. 2 sons, 4 daughters: healthy. No family history of colorectal cancer or other GI malignancy Review of Systems - Review of Systems Constitutional: denies: Chills Cardiovascular: denies: Chest Pain Respiratory: denies: Cough Gastrointestinal: reports: Constipation. denies: Abdominal Pain, Diarrhea, Melena, Rectal Bleeding, Vomiting, Vomiting Blood Physical Exam-GI Vital Signs: Vital Signs Temperature 97.8 F 03/04/19 12:00 Pulse Rate 67 03/04/19 16:00 Respiratory Rate 18 03/04/19 16:00 Blood Pressure 178/64 H 03/04/19 16:00 O2 Sat by Pulse Oximetry (%) 96 03/04/19 09:00 Constitutional: Yes: Calm Eyes: No: Sclera Icterus Cardiovascular: Yes: Regular Rate and Rhythm, Murmur (2/6 systolic murmur at the RSB) Respiratory: Yes: CTA Bilaterally Gastrointestinal Inspection: No: Distention ...Auscultate: Yes: Normoactive Bowel Sounds ...Palpate: Yes: Soft. No: Hepatomegaly, Splenomegaly, Tenderness ...Percussion: No: Tympanitic ...Rectal Exam: Yes: Other (No external lesions, no masses, firm light brown stool in rectal vault, guaiac tracely positive.) Edema: No (No LE edema) Neurological: Yes: Alert Labs: CBC, BMP 03/04/19 16:22 03/04/19 05:35 Imaging - Results Cat Scan: Report Reviewed, Image Reviewed Problem List - Problems (1) Anemia Assessment/Plan: There is no history of acute GI bleeding to account for syncope. Her anemia is microcytic, which suggests chronic component. With tracely guaiac positive stool and questionable finding in her ascending colon on CT scan, colon mass would need to be excluded. If cleared medically, plan for possible colonoscopy 03/06. Discussed plan with patient. Discussed potential risks of the procedure like but not limited to bleeding, perforation requiring surgery to repair, infection, sedation medication effects all of which could be potentially life threatening. She has agreed to the procedure. If unrevealing, upper endoscopy could be pursued. Other recommendations pending the above. Code(s): D64.9 - ANEMIA, UNSPECIFIED
[2019-03-04] MEDS ORDERED: ATORVASTATIN CA 10 MG TABLET (FP) PO SCH (22:00)
[2019-03-04] MEDS ORDERED: ATORVASTATIN CA 40 MG TABLET (FP) PO SCH (22:00)
[2019-03-04] MEDS: ACETAMINOPHEN 325 MG TABLET (FP) PO PRN (23:57)
[2019-03-05 06:54] LABS: BASO % 1.1 % (0-2.0); EOS % 3.7 % (0-4.5); HEMATOCRIT 28.9 % (32.4-45.2); HEMOGLOBIN 8.9 GM/dL (10.7-15.3); LYMPH % 25.3 % (8-40); MCH 22.3 pg (25.7-33.7); MCHC 30.8 g/dl (32.0-36.0); MEAN CELL VOLUME 72.2 fl (80-96); MEAN PLT VOLUME 7.6 fl (7.5-11.1); MONO % 9.2 % (3.8-10.2); NEUT % 60.7 % (42.8-82.8); PLATELET COUNT 330 K/MM3 (134-434); RBC 4.01 M/mm3 (3.60-5.2); RDW 16.7 % (11.6-15.6); WHITE BLOOD COUNT 6.7 K/mm3 (4.0-10.0)
[2019-03-05 07:32] LABS: ALBUMIN 3.3 g/dl (3.4-5.0); BILIRUBIN,TOTAL 0.3 mg/dL (0.2-1); BLOOD UREA NITROGEN 12.6 mg/dL (7-18); CALCIUM 9.2 mg/dL (8.5-10.1); CREATININE 0.9 mg/dL (0.55-1.3); POTASSIUM 3.9 mmol/L (3.5-5.1); TOT PROT 6.6 g/dl (6.4-8.2)
[2019-03-05] MEDS ORDERED: IRON SUCROSE INJECTION 300 MG in SODIUM CHLORIDE 235 ML IVPB ONE (08:24)
--- NOTE | 2019-03-05 09:31 | CON.NEURO ---
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 History of Recent Travel: No Home Medications - Allergies Allergies/Adverse Reactions: Allergies Allergy/AdvReac Type Severity Reaction Status Date / Time No Known Allergies Allergy Verified 03/03/19 15:32 - Home Medications Home Medications: Ambulatory Orders Amlodipine Besylate [Norvasc -] 5 mg PO DAILY 09/30/14 Ezetimibe/Simvastatin [Vytorin 10-20 mg Tablet] 1 tab PO HS 09/30/14 Acetaminophen [Tylenol .Regular Strength -] 650 mg PO Q4H PRN #0 tablet Aspirin Coated [Ecotrin -] 81 mg PO DAILY #30 tab 11/28/16 traZODone HCL [Desyrel -] 25 mg PO HS PRN #30 tablet 11/28/16 Tolterodine Tartrate LA [Detrol LA -] 1 tablet PO DAILY 03/04/19 Physical Exam-Neuro Vital Signs: Vital Signs Temperature 97.7 F 03/05/19 08:00 Pulse Rate 64 03/05/19 08:00 Respiratory Rate 19 03/05/19 08:00 Blood Pressure 144/63 03/05/19 08:00 O2 Sat by Pulse Oximetry (%) 97 03/04/19 21:00 Labs: CBC, BMP 03/05/19 05:48 03/05/19 05:48 Assessment/Plan cc Episode of Syncope HPI 88 year old female history of HTN,HLD,Glaucoma. She lives by herself in independent house in [place]. She presented to hospital on march 02 for episode of passing out. She was in kitchen and she felt dizzy and feel she was sweating . Her son took her to living room and lay her down to couch. She had LOC, there was no tongue bite, incontinence or post ictal confusion. There was no tonic clonic activity. She did have mild headache. There is no other focal neurological weakness. Patient denies any previous seizure like activity or stroke . 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 Residence: Pt lives alone in a house but her children visit her, pt is very independent, does not use cane or walker when walking Fhx: Father: Liver CA; Mother: none Allergies No Known Allergies Allergy (Verified 03/03/19 15:32) HOME MEDICATIONS: Home Medications Medication Instructions Recorded Amlodipine Besylate [Norvasc -] 5 mg PO DAILY 09/30/14 Ezetimibe/Simvastatin [Vytorin 1 tab PO HS 09/30/14 10-20 mg Tablet] Acetaminophen [Tylenol .Regular 650 mg PO Q4H PRN #0 tablet 11/28/16 Strength -] Aspirin Coated [Ecotrin -] 81 mg PO DAILY #30 tab 11/28/16 Atorvastatin Ca [Lipitor] 10 mg PO HS #30 tablet 11/28/16 traZODone HCL [Desyrel -] 25 mg PO HS PRN #30 tablet 11/28/16 ROS,FH,SH reviewed in chart NEUROLOGICAL EXAMINATION Alert oriented x 3, speech is normal, afebrile, vss eomi, pupils reactive, no face asymmetry moving all ext sensation and reflex are normal ct head is normal Assessment/Plan 88 year old female with history of htn,hld,glaucoma came with brief episode of LOC without any tonic clonic activity, no post ictal confsuion. It is most likley vasovagal syncope. Neurological exam and ct head is normal. Plan: no further recommendation from neurological point of view - an Routine EEG can be obtained, if she stays in hospital - outpatient follow up Thanking you so much John Chowdhury MD
[2019-03-05] MEDS ORDERED: cefTRIAXone SODIUM 1 GM VIAL ONE (10:00)
[2019-03-05] MEDS ORDERED: TOLTERODINE TARTRATE LA 4 MG CAP.SR.24H (FP) PO SCH (10:00)
[2019-03-05] MEDS ORDERED: amLODIPine BESYLATE 5 MG TABLET (FP) PO SCH (10:00)
[2019-03-05] MEDS ORDERED: DEXTROSE 5%-WATER - 50 ML IVPB ONE (10:01)
[2019-03-05] MEDS: CEFTRIAXONE 1 GM in DEXTROSE 5%-WATER - 50 ML IVPB SCH (10:02)
[2019-03-05] MEDS: ASPIRIN COATED 81 MG TABLET.EC PO SCH (10:11)
[2019-03-05] MEDS: PANTOPRAZOLE SODIUM 40 MG VIAL IVPUSH SCH (10:11)
[2019-03-05] MEDS: amLODIPine BESYLATE 5 MG TABLET (FP) PO SCH (10:12)
[2019-03-05] MEDS: ACETAMINOPHEN 325 MG TABLET (FP) PO PRN (10:24)
--- NOTE | 2019-03-05 13:03 | PN ---
Physical Exam: SUBJECTIVE: Patient seen and examined 88 y/o F, pmh of htn, hld, glaucoma presented for syncope of a few minute duration associated with LOC and post syncopal symptoms including nausea and headaches. Currently pt is asymptomatic, afebrile. Pt reports a 7/10 headache today but states that Tylenol has made it a bit better. Pt reports nausea overnight which has resolved. Denies f/c/n/v/d/sob/chest pain. OBJECTIVE: Vital Signs Period Temp Pulse Resp BP Sys/Brown Pulse Ox Last 24 Hr 97.7 F-98.6 F 60-69 16-21 128-178/51-64 97-97 GENERAL: The patient is awake, alert, and fully oriented, in no acute distress. EYES: PERRL, extraocular movements intact, sclera anicteric, ENT: Oropharynx clear without exudates, moist mucous membranes. NECK: full range of motion, supple. LUNGS: Breath sounds equal, clear to auscultation bilaterally, no wheezes, no crackles, HEART: Regular rate and rhythm, S1, S2, 2/6 systolic murmur, no rub or gallop. ABDOMEN: Soft, nontender, nondistended, normoactive bowel sounds, no guarding EXTREMITIES: 2+ pulses, warm, no edema. PSYCH: Normal mood, normal affect. SKIN: Warm, dry Laboratory Results - last 24 hr WBC 6.7 K/mm3 (4.0-10.0) 03/05/19 05:48 RBC 4.01 M/mm3 (3.60-5.2) 03/05/19 05:48 Hgb 8.9 GM/dL (10.7-15.3) L 03/05/19 05:48 Hct 28.9 % (32.4-45.2) L 03/05/19 05:48 MCV 72.2 fl (80-96) L 03/05/19 05:48 MCH 22.3 pg (25.7-33.7) L 03/05/19 05:48 MCHC 30.8 g/dl (32.0-36.0) L 03/05/19 05:48 RDW 16.7 % (11.6-15.6) H 03/05/19 05:48 Plt Count 330 K/MM3 (134-434) 03/05/19 05:48 MPV 7.6 fl (7.5-11.1) 03/05/19 05:48 Absolute Neuts (auto) 4.0 K/mm3 (1.5-8.0) 03/05/19 05:48 Neutrophils % 60.7 % (42.8-82.8) 03/05/19 05:48 Lymphocytes % 25.3 % (8-40) 03/05/19 05:48 Monocytes % 9.2 % (3.8-10.2) 03/05/19 05:48 Eosinophils % 3.7 % (0-4.5) 03/05/19 05:48 Basophils % 1.1 % (0-2.0) 03/05/19 05:48 Nucleated RBC % 0 % (0-0) 03/05/19 05:48 Retic Count 0.96 % (0.5-1.5) 03/03/19 16:20 Haptoglobin 172 mg/dL (34-200) 03/03/19 11:48 Sodium 139 mmol/L (136-145) 03/05/19 05:48 Potassium 3.9 mmol/L (3.5-5.1) 03/05/19 05:48 Chloride 107 mmol/L (98-107) 03/05/19 05:48 Carbon Dioxide 27 mmol/L (21-32) 03/05/19 05:48 Anion Gap 5 MMOL/L (8-16) L 03/05/19 05:48 BUN 12.6 mg/dL (7-18) 03/05/19 05:48 Creatinine 0.9 mg/dL (0.55-1.3) 03/05/19 05:48 Est GFR (CKD-EPI)AfAm 66.63 03/05/19 05:48 Est GFR (CKD-EPI)NonAf 57.49 03/05/19 05:48 POC Glucometer 133 UNITS (80-120) 03/04/19 16:47 Random Glucose 71 mg/dL (74-106) L 03/05/19 05:48 Hemoglobin A1c % 5.8 % (4.2-6.3) 03/04/19 05:35 Calcium 9.2 mg/dL (8.5-10.1) 03/05/19 05:48 Phosphorus 2.8 mg/dL (2.5-4.9) 03/04/19 05:35 Magnesium 2.1 mg/dL (1.8-2.4) 03/04/19 05:35 Iron 14 ug/dL (50-175) L 03/03/19 16:20 TIBC 359 ug/dL (250-450) 03/03/19 16:20 Iron Saturation 3 % (17.5-39) L 03/03/19 16:20 Unsaturated IBC 345 ug/dL (200-275) H 03/03/19 16:20 Ferritin 6.8 ng/ml (8-388) L 03/03/19 18:03 Total Bilirubin 0.3 mg/dL (0.2-1) 03/05/19 05:48 AST 20 U/L (15-37) 03/05/19 05:48 ALT 16 U/L (13-61) 03/05/19 05:48 Alkaline Phosphatase 50 U/L (45-117) 03/05/19 05:48 LD Total 178 U/L (84-246) 03/03/19 16:20 Creatine Kinase 56 U/L (26-192) 03/03/19 16:20 Troponin I < 0.02 ng/ml (0.00-0.05) 03/03/19 16:20 Total Protein 6.6 g/dl (6.4-8.2) 03/05/19 05:48 Albumin 3.3 g/dl (3.4-5.0) L 03/05/19 05:48 Active Medications Current Medications Acetaminophen (Tylenol -) 650 mg PO Q4H PRN PRN Reason: FEVER Last Admin: 03/05/19 10:24 Dose: 650 mg Amlodipine Besylate (Norvasc -) 10 mg PO DAILY RAHUL Last Admin: 03/05/19 10:12 Dose: 10 mg Aspirin (Ecotrin -) 81 mg PO DAILY RAHUL Last Admin: 03/05/19 10:11 Dose: 81 mg Atorvastatin Calcium (Lipitor -) 40 mg PO HS RAHUL Last Admin: 03/04/19 21:11 Dose: 40 mg Bisacodyl (Dulcolax -) 20 mg PO ONCE ONE Stop: 03/05/19 15:01 Ceftriaxone Sodium 1 gm/ (Dextrose) 50 mls @ 100 mls/hr IVPB DAILY RAHUL; Protocol Last Admin: 03/05/19 10:02 Dose: 100 mls/hr Pantoprazole Sodium (Protonix Iv) 40 mg IVPUSH DAILY [facility] Last Admin: 03/05/19 10:11 Dose: 40 mg Polyethylene Glycol/Electrolytes (Golytely Solution -) 4,000 ml PO ONCE ONE Stop: 03/05/19 16:01 Home Medications Medication Instructions Recorded Amlodipine Besylate [Norvasc -] 5 mg PO DAILY 09/30/14 Ezetimibe/Simvastatin [Vytorin 1 tab PO HS 09/30/14 10-20 mg Tablet] Acetaminophen [Tylenol .Regular 650 mg PO Q4H PRN #0 tablet 11/28/16 Strength -] Aspirin Coated [Ecotrin -] 81 mg PO DAILY #30 tab 11/28/16 traZODone HCL [Desyrel -] 25 mg PO HS PRN #30 tablet 11/28/16 Tolterodine Tartrate LA [Detrol LA 1 tablet PO DAILY 03/04/19 -] Microbiology 03/03/19 18:20 Urine - Urine Clean Catch Urine Culture - Final NO GROWTH OBTAINED ASSESSMENT/PLAN: 88 y/o F, pmh of htn, hld, glaucoma presented for syncope of a few minute duration associated with LOC and post syncopal symptoms including nausea and headaches is admitted for syncope #Syncope- etiology unclear CT a/p- Dr. Kramer radiologist- reported by phone- Concern for an Annular Constricting Lesion on the ascending colon. Consider enema or colonoscopy to investigate further. Pt also has fecal retention w/out impaction CT a/p- official report- evident for the above results CT head negative Echo- no significant abnormalities, EF-60% Carotid doppler: moderate plaques on the right common carotid, mild plaques on the left common carotid Fall precaution Gentle hydration As per Cardio Continue Norvasc 5 qd, ASA 81 qd, Lipitor 10 qhs However due to elevated BP, Norvasc increased to 10mg daily Addressed abortive maneuvers once prodromal sxs experienced Upright tilt table testing as outpatient #UTI UA positive, 1+ LE UCx- neg IV Rocephin 1g Daily #Iron def anemia Iron panel evident for iron def. IV venofer given today, one more dose tomorrow IV protonix As per GI Due to guaiac positivity and questionable ascending colon finding on CT, Colon mass needs to be r/o Colonoscopy planned for tomorrow 03/06. If unrevealing, then upper endoscopy could be pursued NPO after midnight, bowel regime- Golytely As per Neuro no further recommendation from neurological point of view Routine EEG can be obtained, if she stays in hospital F/u outpt #[facility] Kidney fxn normalized #HTN cont home meds- amlodipine 10 mg #HLD cont atorvastatin #DVT ppx Scds b/l F: E: moniter lytes N: NPO after midnight, clear liquids till then Dispo: endoscopy in am, cont abx, monitor bp Visit type - Emergency Visit Emergency Visit: Yes ED Registration Date: 03/03/19 Care time: The patient presented to the Emergency Department on the above date and was hospitalized for further evaluation of their emergent condition. - New Patient This patient is new to me today: Yes Date on this admission: 03/06/19 - Critical Care Critical Care patient: No - Discharge Referral Referred to [facility] Med P.C.: No ATTENDING PHYSICIAN STATEMENT I saw and evaluated the patient. I reviewed the resident's note and discussed the case with the resident. I agree with the resident's findings and plan as documented. SUBJECTIVE: OBJECTIVE: ASSESSMENT AND PLAN:
[2019-03-05] MEDS ORDERED: BISACODYL 5 MG TABLET.DR (FP) PO ONE (15:00)
[2019-03-05 15:32] VITALS: BMI 21.7
[2019-03-05] MEDS ORDERED: PEG 3350/NA SULF BICARB CL/KCL 4000 ML SOLN.RECON PO ONE (16:00)
--- NOTE | 2019-03-05 16:38 | PN.GI ---
GI Progress Note Subjective: No acute events No abdominal pain, rectal bleeding - Objective Vital Signs: Vital Signs Temperature 97.7 F 03/05/19 14:00 Pulse Rate 63 03/05/19 14:00 Respiratory Rate 20 03/05/19 14:00 Blood Pressure 127/53 L 03/05/19 14:00 O2 Sat by Pulse Oximetry (%) 97 03/05/19 09:00 Constitutional: Calm Eyes: No: Sclera Icterus Cardiovascular: Yes: Regular Rate and Rhythm, Murmur Gastrointestinal Inspection: No: Distention ...Auscultate: Yes: Normoactive Bowel Sounds ...Palpate: Yes: Soft. No: Tenderness Edema: No (No LE edema) Neurological: Yes: Alert Labs: CBC, BMP 03/05/19 05:48 03/05/19 05:48 Problem List - Problems (1) Anemia Assessment/Plan: Assessment as noted in initial consult For colonoscopy tomorrow 03/06. Discussed plan again with Ms. Griselda SALGUEROO after midnight except meds Code(s): D64.9 - ANEMIA, UNSPECIFIED
--- NOTE | 2019-03-05 20:11 | PN ---
Teaching Attending Note Name of Resident: Ángel Combs ATTENDING PHYSICIAN STATEMENT I saw and evaluated the patient. I reviewed the resident's note and discussed the case with the resident. I agree with the resident's findings and plan as documented. SUBJECTIVE: Patient is feeling better with no acute distress. Vital Signs Temperature 97.7 F 03/05/19 14:00 Pulse Rate 80 03/05/19 18:00 Respiratory Rate 20 03/05/19 18:00 Blood Pressure 135/58 L 03/05/19 18:00 O2 Sat by Pulse Oximetry (%) 97 03/05/19 09:00 GENERAL: The patient is awake, alert, and fully oriented, in no acute distress. HEAD: Normal with no signs of trauma. EYES: PERRL, extraocular movements intact, sclera anicteric, conjunctiva clear. ENT: Ears normal, oropharynx clear without exudates, moist mucous membranes. NECK: Trachea midline, full range of motion, supple. LUNGS: Breath sounds equal, clear to auscultation bilaterally, no wheezes, no crackles, no accessory muscle use. HEART: Regular rate and rhythm, S1, S2 positve, GARY 1/6 , no rub or gallop. ABDOMEN: Soft, Nt, ND, normoactive bowel sounds, no guarding, no rebound, no hepatosplenomegaly, no masses. EXTREMITIES: 2+ pulses, warm, well-perfused, no edema. NEUROLOGICAL: Cranial nerves II through XII grossly intact. Normal speech, gait not observed. PSYCH: Normal mood, normal affect. SKIN: Warm, dry, normal turgor, no rashes or lesions noted Stool guaiac is negative. CBCD WBC 6.7 K/mm3 (4.0-10.0) 03/05/19 05:48 RBC 4.01 M/mm3 (3.60-5.2) 03/05/19 05:48 Hgb 8.9 GM/dL (10.7-15.3) L 03/05/19 05:48 Hct 28.9 % (32.4-45.2) L 03/05/19 05:48 MCV 72.2 fl (80-96) L 03/05/19 05:48 MCHC 30.8 g/dl (32.0-36.0) L 03/05/19 05:48 RDW 16.7 % (11.6-15.6) H 03/05/19 05:48 Plt Count 330 K/MM3 (134-434) 03/05/19 05:48 MPV 7.6 fl (7.5-11.1) 03/05/19 05:48 CMP Sodium 139 mmol/L (136-145) 03/05/19 05:48 Potassium 3.9 mmol/L (3.5-5.1) 03/05/19 05:48 Chloride 107 mmol/L (98-107) 03/05/19 05:48 Carbon Dioxide 27 mmol/L (21-32) 03/05/19 05:48 Anion Gap 5 MMOL/L (8-16) L 03/05/19 05:48 BUN 12.6 mg/dL (7-18) 03/05/19 05:48 Creatinine 0.9 mg/dL (0.55-1.3) 03/05/19 05:48 Random Glucose 71 mg/dL (74-106) L 03/05/19 05:48 Calcium 9.2 mg/dL (8.5-10.1) 03/05/19 05:48 Total Bilirubin 0.3 mg/dL (0.2-1) 03/05/19 05:48 AST 20 U/L (15-37) 03/05/19 05:48 ALT 16 U/L (13-61) 03/05/19 05:48 Alkaline Phosphatase 50 U/L (45-117) 03/05/19 05:48 Total Protein 6.6 g/dl (6.4-8.2) 03/05/19 05:48 Albumin 3.3 g/dl (3.4-5.0) L 03/05/19 05:48 CARDIAC ENZYMES Creatine Kinase 56 U/L (26-192) 03/03/19 16:20 Troponin I < 0.02 ng/ml (0.00-0.05) 03/03/19 16:20 Current Medications Generic Name Dose Route Start Last Admin Trade Name Freq PRN Reason Stop Dose Admin Acetaminophen 650 mg 03/04/19 12:07 03/05/19 10:24 Tylenol - PO 650 mg Q4H PRN Administration FEVER Amlodipine Besylate 10 mg 03/05/19 10:00 03/05/19 10:12 Norvasc - PO 10 mg DAILY RAHUL Administration Aspirin 81 mg 03/05/19 10:00 03/05/19 10:11 Ecotrin - PO 81 mg DAILY RAHUL Administration Atorvastatin Calcium 40 mg 03/05/19 22:00 Lipitor - PO HS RAHUL Ezetimibe 10 mg 03/05/19 22:00 Zetia - PO HS RAHUL Ceftriaxone Sodium 1 gm/ 50 mls @ 100 mls/hr 03/03/19 21:30 03/05/19 10:02 Dextrose IVPB 100 mls/hr DAILY RAHUL Administration Protocol Pantoprazole Sodium 40 mg 03/05/19 10:00 03/05/19 10:11 Protonix Iv IVPUSH 40 mg DAILY RAHUL Administration Home Medications Medication Instructions Recorded Amlodipine Besylate [Norvasc -] 5 mg PO DAILY 09/30/14 Ezetimibe/Simvastatin [Vytorin 1 tab PO HS 09/30/14 10-20 mg Tablet] Acetaminophen [Tylenol .Regular 650 mg PO Q4H PRN #0 tablet 11/28/16 Strength -] Aspirin Coated [Ecotrin -] 81 mg PO DAILY #30 tab 11/28/16 Atorvastatin Ca [Lipitor] 10 mg PO HS #30 tablet 11/28/16 traZODone HCL [Desyrel -] 25 mg PO HS PRN #30 tablet 11/28/16 Urine Test Results Urine Color Yellow 03/03/19 18:20 Urine Appearance Clear 03/03/19 18:20 Urine pH 5.0 (5.0-8.0) 03/03/19 18:20 Ur Specific [place] 1.015 (1.010-1.035) 03/03/19 18:20 Urine Protein 1+ (NEGATIVE) H 03/03/19 18:20 Urine Glucose (UA) Negative (NEGATIVE) 03/03/19 18:20 Urine Ketones Trace (NEGATIVE) H 03/03/19 18:20 Urine Blood Negative (NEGATIVE) 03/03/19 18:20 Urine Nitrite Negative (NEGATIVE) 03/03/19 18:20 Urine Bilirubin Negative (NEGATIVE) 03/03/19 18:20 Ur Leukocyte Esterase 1+ (NEGATIVE) H 03/03/19 18:20 Microbiology 03/03/19 18:20 Urine - Urine Clean Catch Urine Culture - Final NO GROWTH OBTAINED EKG shows NSR with t wave inversion in III and V1 - unchanged from prior EKG. Ct abdomen and pelvis: reviewed Ascending colon wall thickening Assessment and plan; Pt is a 88 y/o F w/ pmhx of HTN, HLD, and glaucoma presenting to ED due to having syncopal event this afternoon. #Syncope: unclear etiology , neuro and cardio consult appreciated consult , echo reviewed, Carotid doppler reviewed. Neuro consult and cardio #Acute symptomatic UTI: on IV Rocephin 1g Daily, will hold Detrol La, will follow the cx # Iron deficiency anemia: on IV venofer 500 mg x 1 dose given, IV protonix 40mg daily, patient is going to colonoscopy in am , GI consult appreciated. #CLARK Likely due to dehydration , improving . # HTN:stable now on Norvasc continue DVT ppx: SCDs GI PPx: Protonix 40mg IV daily tele: full code colonoscopy in am NPO after midnight
[2019-03-05] MEDS ORDERED: ONDANSETRON 4 MG/2 ML VIAL IVPB ONE (21:00)
[2019-03-05] MEDS: ATORVASTATIN CA 40 MG TABLET (FP) PO SCH (21:16)
[2019-03-05] MEDS: EZETIMIBE 10 MG TABLET (FP) PO SCH (21:16)
[2019-03-05] MEDS ORDERED: POLYETHYLENE GLYCOL 3350 255 GM BTL PO ONE (21:51)
[2019-03-05] MEDS ORDERED: PROCHLORPERAZINE INJECTION 10 MG/2 ML VIAL IVPB ONE (22:31)
[2019-03-06 07:50] LABS: BASO % 0.4 % (0-2.0); EOS % 0.3 % (0-4.5); HEMATOCRIT 29.7 % (32.4-45.2); HEMOGLOBIN 9.5 GM/dL (10.7-15.3); LYMPH % 14.7 % (8-40); MCH 23.1 pg (25.7-33.7); MCHC 32.1 g/dl (32.0-36.0); MEAN CELL VOLUME 71.8 fl (80-96); MONO % 5.7 % (3.8-10.2); NEUT % 78.9 % (42.8-82.8); RBC 4.14 M/mm3 (3.60-5.2); RDW 16.7 % (11.6-15.6); WHITE BLOOD COUNT 11.8 K/mm3 (4.0-10.0)
[2019-03-06 08:25] LABS: ALBUMIN 3.4 g/dl (3.4-5.0); BILIRUBIN,TOTAL 0.8 mg/dL (0.2-1); BLOOD UREA NITROGEN 12.5 mg/dL (7-18); CREATININE 0.9 mg/dL (0.55-1.3); POTASSIUM 3.5 mmol/L (3.5-5.1); TOT PROT 6.6 g/dl (6.4-8.2)
[2019-03-06 09:45] LABS: PLATELET ESTIMATE NORMAL
[2019-03-06] MEDS ORDERED: cefTRIAXone SODIUM 1 GM VIAL ONE ×2 (10:12→21:29)
[2019-03-06] MEDS ORDERED: DEXTROSE 5%-WATER - 50 ML IVPB ONE ×2 (10:12→21:29)
[2019-03-06] MEDS: CEFTRIAXONE 1 GM in DEXTROSE 5%-WATER - 50 ML IVPB SCH (10:15)
[2019-03-06] MEDS: amLODIPine BESYLATE 5 MG TABLET (FP) PO SCH (10:15)
[2019-03-06] MEDS: ASPIRIN COATED 81 MG TABLET.EC PO SCH (10:15)
[2019-03-06] MEDS: PANTOPRAZOLE SODIUM 40 MG VIAL IVPUSH SCH (10:15)
[2019-03-06 10:21] LABS: PLATELET COUNT 279 K/MM3 (134-434)
[2019-03-06 11:27] LABS: CALCIUM 9.5 mg/dL (8.5-10.1); POTASSIUM 3.5 mmol/L (3.5-5.1)
--- NOTE | 2019-03-06 14:27 | PN ---
Progress Note (short form) - Note Progress Note: Brief GI note Colonoscopy performed today revealing mass at the ICV concerning for malignancy , biopsied. Left colon polyp removed with cold snare and area of erythema and ulceration in sigmoid colon, biopsied. See scanned endoscopy report for complete details Recommendations: -Resume clear liquid diet and advance as tolerated -Follow up pathology results -Check CEA levels -CT chest for staging purposes -Surgery and oncology consults pending path -Discussed with pt after the procedure
--- NOTE | 2019-03-06 17:36 | PN ---
Physical Exam: SUBJECTIVE: Patient seen and examined 88 y/o F, pmh of htn, hld, glaucoma presented for syncope of a few minute duration associated with LOC and post syncopal symptoms including nausea and headaches. Currently pt is asymptomatic, afebrile. Pt had n/v last night but now resolved. Denies f/c/n/v/d/sob/chest pain. OBJECTIVE: Vital Signs Period Temp Pulse Resp BP Sys/Brown Pulse Ox Last 24 Hr 97.7 F-100 F 63-85 17-23 104-138/52-78 97-100 GENERAL: The patient is awake, alert, and fully oriented, in no acute distress. EYES: PERRL, extraocular movements intact, sclera anicteric, ENT: Oropharynx clear without exudates, moist mucous membranes. NECK: full range of motion, supple. LUNGS: Breath sounds equal, clear to auscultation bilaterally, no wheezes, no crackles, HEART: Regular rate and rhythm, S1, S2, 2/6 systolic murmur, no rub or gallop. ABDOMEN: Soft, nontender, nondistended, normoactive bowel sounds, no guarding EXTREMITIES: 2+ pulses, warm, no edema. PSYCH: Normal mood, normal affect. SKIN: Warm, dry Laboratory Results - last 24 hr CBC,CMP WBC 11.8 K/mm3 (4.0-10.0) H 03/06/19 06:05 RBC 4.14 M/mm3 (3.60-5.2) 03/06/19 06:05 Hgb 9.5 GM/dL (10.7-15.3) L 03/06/19 06:05 Hct 29.7 % (32.4-45.2) L 03/06/19 06:05 MCV 71.8 fl (80-96) L 03/06/19 06:05 MCH 23.1 pg (25.7-33.7) L 03/06/19 06:05 MCHC 32.1 g/dl (32.0-36.0) 03/06/19 06:05 RDW 16.7 % (11.6-15.6) H 03/06/19 06:05 Plt Count 279 K/MM3 (134-434) 03/06/19 06:05 MPV 8.0 fl (7.5-11.1) 03/06/19 06:05 Absolute Neuts (auto) 9.3 K/mm3 (1.5-8.0) H 03/06/19 06:05 Neutrophils % 78.9 % (42.8-82.8) D 03/06/19 06:05 Lymphocytes % 14.7 % (8-40) D 03/06/19 06:05 Monocytes % 5.7 % (3.8-10.2) 03/06/19 06:05 Eosinophils % 0.3 % (0-4.5) D 03/06/19 06:05 Basophils % 0.4 % (0-2.0) 03/06/19 06:05 Nucleated RBC % 0 % (0-0) 03/06/19 06:05 Platelet Estimate Normal 03/06/19 06:05 Platelet Comment Present 03/06/19 06:05 Retic Count 0.96 % (0.5-1.5) 03/03/19 16:20 Haptoglobin 172 mg/dL (34-200) 03/03/19 11:48 Sodium 142 mmol/L (136-145) 03/06/19 10:48 Potassium 3.5 mmol/L (3.5-5.1) 03/06/19 10:48 Chloride 105 mmol/L (98-107) 03/06/19 10:48 Carbon Dioxide 30 mmol/L (21-32) 03/06/19 10:48 Anion Gap 7 MMOL/L (8-16) L 03/06/19 10:48 BUN 12.0 mg/dL (7-18) 03/06/19 10:48 Creatinine 1.0 mg/dL (0.55-1.3) 03/06/19 10:48 Est GFR (CKD-EPI)AfAm 58.66 03/06/19 10:48 Est GFR (CKD-EPI)NonAf 50.61 03/06/19 10:48 POC Glucometer 133 UNITS (80-120) 03/04/19 16:47 Random Glucose 115 mg/dL (74-106) H 03/06/19 10:48 Hemoglobin A1c % 5.8 % (4.2-6.3) 03/04/19 05:35 Calcium 9.5 mg/dL (8.5-10.1) 03/06/19 10:48 Phosphorus 2.8 mg/dL (2.5-4.9) 03/04/19 05:35 Magnesium 2.1 mg/dL (1.8-2.4) 03/04/19 05:35 Iron 14 ug/dL (50-175) L 03/03/19 16:20 TIBC 359 ug/dL (250-450) 03/03/19 16:20 Iron Saturation 3 % (17.5-39) L 03/03/19 16:20 Unsaturated IBC 345 ug/dL (200-275) H 03/03/19 16:20 Ferritin 6.8 ng/ml (8-388) L 03/03/19 18:03 Total Bilirubin 0.8 mg/dL (0.2-1) 03/06/19 06:05 AST 16 U/L (15-37) 03/06/19 06:05 ALT 15 U/L (13-61) 03/06/19 06:05 Alkaline Phosphatase 52 U/L (45-117) 03/06/19 06:05 LD Total 178 U/L (84-246) 03/03/19 16:20 Creatine Kinase 56 U/L (26-192) 03/03/19 16:20 Troponin I < 0.02 ng/ml (0.00-0.05) 03/03/19 16:20 Total Protein 6.6 g/dl (6.4-8.2) 03/06/19 06:05 Albumin 3.4 g/dl (3.4-5.0) 03/06/19 06:05 Active Medications Current Medications Acetaminophen (Tylenol -) 650 mg PO Q4H PRN PRN Reason: FEVER Last Admin: 03/05/19 10:24 Dose: 650 mg Amlodipine Besylate (Norvasc -) 10 mg PO DAILY [facility] Last Admin: 03/06/19 10:15 Dose: 10 mg Aspirin (Ecotrin -) 81 mg PO DAILY [facility] Last Admin: 03/06/19 10:15 Dose: 81 mg Atorvastatin Calcium (Lipitor -) 40 mg PO HS [facility] Last Admin: 03/05/19 21:16 Dose: 40 mg Ezetimibe (Zetia -) 10 mg PO HS [facility] Last Admin: 03/05/19 21:16 Dose: 10 mg Pantoprazole Sodium (Protonix Iv) 40 mg IVPUSH DAILY [facility] Last Admin: 03/06/19 10:15 Dose: 40 mg Home Medications Medication Instructions Recorded Amlodipine Besylate [Norvasc -] 5 mg PO DAILY 09/30/14 Ezetimibe/Simvastatin [Vytorin 1 tab PO HS 09/30/14 10-20 mg Tablet] Acetaminophen [Tylenol .Regular 650 mg PO Q4H PRN #0 tablet 11/28/16 Strength -] Aspirin Coated [Ecotrin -] 81 mg PO DAILY #30 tab 11/28/16 traZODone HCL [Desyrel -] 25 mg PO HS PRN #30 tablet 11/28/16 Tolterodine Tartrate LA [Detrol LA 1 tablet PO DAILY 03/04/19 -] Latanoprost 0.005% Eye Drops 1 drop HS 03/06/19 [Xalatan 0.005% Eye Drops -] Microbiology 03/03/19 18:20 Urine - Urine Clean Catch Urine Culture - Final NO GROWTH OBTAINED ASSESSMENT/PLAN: 88 y/o F, pmh of htn, hld, glaucoma presented for syncope of a few minute duration associated with LOC and post syncopal symptoms including nausea and headaches is admitted for syncope #Syncope 2/2 to anemia 2/2 possible malignancy Carotid doppler: moderate plaques on the right common carotid, mild plaques on the left common carotid Endoscopy- mass near ICV concerning for malignancy- bx sent- f/u pathology result CEA CT chest ordered- staging Surgery consulted- Dr. Oneil Oncology consult pending pathology PT consulted to see where pt needs to go after d/c- rehab vs home #UTI asymptomatic UA positive, 1+ LE UCx- neg abx d/jo #Iron def anemia Iron panel evident for iron def. Hg 9.5 uptrending- IV protonix As per Neuro no further recommendation from neurological point of view Routine EEG can be obtained, if she stays in hospital F/u outpt #CLARK Kidney fxn normalized #HTN cont home meds- amlodipine 10 mg #HLD Carotid doppler: moderate plaques on the right common carotid, mild plaques on the left common carotid cont atorvastatin #DVT ppx Scds b/l FEN Regular diet Dispo: f/u PT, surgery, and Chest CT Visit type - Emergency Visit Emergency Visit: Yes ED Registration Date: 03/03/19 Care time: The patient presented to the Emergency Department on the above date and was hospitalized for further evaluation of their emergent condition. - New Patient This patient is new to me today: Yes Date on this admission: 03/06/19 - Critical Care Critical Care patient: No - Discharge Referral Referred to [facility] Med P.C.: No ATTENDING PHYSICIAN STATEMENT I saw and evaluated the patient. I reviewed the resident's note and discussed the case with the resident. I agree with the resident's findings and plan as documented. SUBJECTIVE: OBJECTIVE: ASSESSMENT AND PLAN:
--- NOTE | 2019-03-06 18:21 | PN ---
Teaching Attending Note Name of Resident: Selene Mitchell ATTENDING PHYSICIAN STATEMENT I saw and evaluated the patient. I reviewed the resident's note and discussed the case with the resident. I agree with the resident's findings and plan as documented. SUBJECTIVE: no pain, no SOB , no cough . wants to eat regular food OBJECTIVE: NAD CV: RRR, no MRG Lungs: CTAB Ext : No edema or erythema. Abd: soft, ND, NL BS, discomfort in RLQ to deep palpation ASSESSMENT AND PLAN: 88 y/o lady with h/o HTN, HLP, and glaucoma who presented with LOC 1- Syncope : likely vasovagal 2- iron deficiency anemia , due to colon mass, likely cancer . - s/p colo today - advance diet to regular - iron pills at dc - due to the findings, and due to no h/o CAD or CAD equivalent, will dc aspirin and discuss further with patient 3- Colon mass, concerning for cancer. - patient was informed. - get CT of chest - Surgical consult - ONC after bx results 4- h/o HTN : Cont Norvasc. 5- DVT PX : start heparin sq due to absent active acute bleed
[2019-03-06] MEDS ORDERED: CEFTRIAXONE 1 GM in DEXTROSE 5%-WATER - 50 ML IVPB ONE (18:24)
[2019-03-06] MEDS: EZETIMIBE 10 MG TABLET (FP) PO SCH (21:26)
[2019-03-06] MEDS: HEPARIN NA (PORCINE) 5,000 UNITS/ML 1ML VIAL SQ SCH (21:26)
[2019-03-06] MEDS: ATORVASTATIN CA 40 MG TABLET (FP) PO SCH (21:26)
[2019-03-07] MEDS: HEPARIN NA (PORCINE) 5,000 UNITS/ML 1ML VIAL SQ SCH ×3 (06:21→21:12)
[2019-03-07 07:20] LABS: BASO % 0.8 % (0-2.0); EOS % 5.3 % (0-4.5); HEMATOCRIT 28.2 % (32.4-45.2); HEMOGLOBIN 8.7 GM/dL (10.7-15.3); LYMPH % 29.1 % (8-40); MCH 22.6 pg (25.7-33.7); MEAN CELL VOLUME 72.9 fl (80-96); MEAN PLT VOLUME 7.8 fl (7.5-11.1); MONO % 9.6 % (3.8-10.2); NEUT % 55.2 % (42.8-82.8); PLATELET COUNT 290 K/MM3 (134-434); RBC 3.86 M/mm3 (3.60-5.2); RDW 16.7 % (11.6-15.6); WHITE BLOOD COUNT 5.8 K/mm3 (4.0-10.0)
[2019-03-07 07:41] LABS: ALBUMIN 2.8 g/dl (3.4-5.0); BILIRUBIN,TOTAL 0.1 mg/dL (0.2-1); BLOOD UREA NITROGEN 16.2 mg/dL (7-18); CALCIUM 8.6 mg/dL (8.5-10.1); CREATININE 0.9 mg/dL (0.55-1.3); POTASSIUM 3.5 mmol/L (3.5-5.1); TOT PROT 5.8 g/dl (6.4-8.2)
--- NOTE | 2019-03-07 08:05 | CONSULT ---
- Consultation REQUESTING PROVIDER: GENERAL SURGERY - Dr. Maximilian Oneil CONSULT REQUEST: We have been asked to surgically evaluate this patient for concentric wall thickening vs. non-obstructing ascending colonic mass. PCP: Jen Batista MD HPI: Called to compa 88 yo female w/ PMHx as noted below. Presents to [facility] ED w/ her family s/p witnessed syncopal episode yesterday. Patient states she's never experienced this before. States she was cooking a meal at home when she began to feel hot/light headed and dizzy. Son helped her to the couch where he noticed that her eyes rolled back. Episode lasted about 10 seconds. Per notes, no seizure like activity described. Patient denies any CP, palpitations, irregular heartbeat prior too or post syncopal episode. Admits to feeling a bit constipated recently. Her last BM was 5 days ago. She admits to unintentional weight loss (states she typically weights 124 lbs). No family history of colon CA. He last colonoscopy was 2014 (which was unremarkable at that time per patient). Per medical notes on this visit, she has been evaluated by cardiology who felt that her syncopal episode was neurocardiogenic in nature. Echo failed to reveal significant valvular heart disease to account for syncope. She takes ASA 81mg daily and occasional Aleve. She recently had an ABD/Pelvis CT scan which ? concentric wall thickening in the right colon. GI/Dr. Cobb performed a colonoscopy 03/06/19 revealing mass at the ICV concerning for malignancy, biopsied. Left colon polyp removed with cold snare and area of erythema and ulceration in sigmoid colon, biopsied Denies n/v/d. Denies cough, SOB or CASTILLO. Denies abd pain, abd distension, melena , or hematochezia. Denies AC, unsteady gait, seizure PMHx: HTN, HLD, Glaucoma, Bladder incontinence, Diverticulosis PSHx: Bladder prolapse surgery (in the past w/ repeat in May.); Bilateral cataracts; Hysterectomy Home Meds Amlodipine Besylate [Norvasc -] 5 mg PO DAILY 09/30/14 Ezetimibe/Simvastatin [Vytorin 10-20 mg Tablet] 1 tab PO HS 09/30/14 Acetaminophen [Tylenol .Regular Strength -] 650 mg PO Q4H PRN #0 tablet Aspirin Coated [Ecotrin -] 81 mg PO DAILY #30 tab 11/28/16 traZODone HCL [Desyrel -] 25 mg PO HS PRN #30 tablet 11/28/16 Tolterodine Tartrate LA [Detrol LA -] 1 tablet PO DAILY 03/04/19 Allergies: NKDA ROS: CONSTITUTIONAL: Absent: diaphoresis, generalized weakness, malaise, loss of appetite CARDIOVASCULAR: Absent: syncope, lightheadedness, peripheral edema RESPIRATORY: Absent: wheezing, stridor, hemoptysis GASTROINTESTINAL:Absent: see hpi GENITOURINARY: Absent: dysuria, frequency, urgency, hesitancy, hematuria, flank pain MUSCULOSKELETAL: Absent: myalgia, arthralgia, joint swelling, back pain, neck pain SKIN: Absent: rash, itching, pallor HEMATOLOGIC/IMMUNOLOGIC: Absent: easy bleeding, easy bruising, lymphadenopathy NEUROLOGIC: Absent: focal weakness, paresthesias, dizziness, bladder incontinence PSYCHIATRIC: Absent: anxiety, depression, suicidal or homicidal ideation, hallucinations. PE: GENERAL: A&O, NAD HEAD: NC. AT EYES: PERRL, sclera anicteric, conjunctiva clear. NECK: Normal ROM, supple without lymphadenopathy, JVD, or masses. LUNGS: CTA bilat HEART: RRR ABD: Soft, nontender, not distended, normoactive bowel sounds, no guarding, no rebound, no masses. No organomegaly. MUSCULOSKELETAL: Normal ROM at all joints. No CVAT UE: 2+ pulses, warm, well-perfused. No cyanosis. Cap refill <2 seconds. No peripheral edema. LE: 2+ pulses, warm, well-perfused. No calf tenderness. No peripheral edema. NEUROLOGICAL: Normal speech, gait not observed. PSYCH: Cooperative. Good eye contact. Appropriate mood and affect. SKIN: Warm, dry, normal turgor, no rashes or lesions noted. Last Vital Signs Temp Pulse Resp BP Pulse Ox 98.5 F 67 21 H 122/48 L 100 03/07/19 06:00 03/07/19 06:00 03/07/19 06:00 03/07/19 06:00 03/06/19 19:27 Blood Type Blood Type O POSITIVE 03/03/19 18:03 CBC, BMP 03/07/19 05:50 03/07/19 05:50 Hepatic Panel Total Bilirubin 0.1 mg/dL (0.2-1) L 03/07/19 05:50 AST 14 U/L (15-37) L 03/07/19 05:50 ALT 13 U/L (13-61) 03/07/19 05:50 Alkaline Phosphatase 46 U/L (45-117) 03/07/19 05:50 Albumin 2.8 g/dl (3.4-5.0) L 03/07/19 05:50 Problem List - Problems (1) Syncope and collapse Assessment/Plan: Called to eval 88 yo female s/p witnessed syncopal episode. On imaging, patient found to have concentric wall thickening of her ascending colon. GI performed colonoscopy revealing mass at the ICV concerning for malignancy, biopsied. Left colon polyp removed with cold snare and area of erythema and ulceration in sigmoid colon, biopsied. Also found to have UTI as well as Iron Deficiency Anemia. f/u path on GI biopsy of colon IV ABX for UTI IV Venofer GI PPX DVT PPX OOB BP control f/u Cx CT Surgery Team to cont following Above plan discussed with Dr. Oneil and agrees. Code(s): R55 - SYNCOPE AND COLLAPSE (2) Anemia Code(s): D64.9 - ANEMIA, UNSPECIFIED (3) Hypertension Code(s): I10 - ESSENTIAL (PRIMARY) HYPERTENSION Qualifiers: Hypertension type: essential hypertension Qualified Code(s): I10 - Essential (primary) hypertension (4) Hyperlipemia Code(s): E78.5 - HYPERLIPIDEMIA, UNSPECIFIED Qualifiers: Hyperlipidemia type: pure hypercholesterolemia Qualified Code(s): E78.00 - Pure hypercholesterolemia, unspecified Visit type - Case Type Case Type: ED Admission - Emergency Emergency Visit: Yes ED Registration Date: 03/03/19 Care time: The patient presented to the Emergency Department on the above date and was hospitalized for further evaluation of their emergent condition. - New patient This patient is new to me today: Yes Date on this admission: 03/07/19
[2019-03-07] MEDS: amLODIPine BESYLATE 5 MG TABLET (FP) PO SCH (09:45)
[2019-03-07] MEDS: PANTOPRAZOLE SODIUM 40 MG VIAL IVPUSH SCH (09:45)
--- NOTE | 2019-03-07 16:51 | PN ---
Progress Note (short form) - Note Progress Note: Attending Surgeon Spoke w/patient and daughters; I had tentatively put the patient on the OR schedule for Monday03/11/19 before speaking with them; they are considering her having surgery perhaps elsewhere. Maximilian Oneil MD FACS
--- NOTE | 2019-03-07 17:17 | PN ---
Teaching Attending Note Name of Resident: Ángel Combs ATTENDING PHYSICIAN STATEMENT I saw and evaluated the patient. I reviewed the resident's note and discussed the case with the resident. I agree with the resident's findings and plan as documented. SUBJECTIVE: no pain , fever or chills. feels better today OBJECTIVE: NAD CV: RRR, no MRG Lungs: CTAB Ext : No edema or erythema. Abd: soft, ND, NL BS, NT ASSESSMENT AND PLAN: 88 y/o lady with h/o HTN, HLP, and glaucoma who presented with LOC 1- Syncope : likely vasovagal 2- Iron deficiency anemia , due to colon mass, likely cancer . - s/p colo - tolerated regular diet - iron pills at dc with colace and senna - patient was recommended to hold aspirin until her cancer is surgically removed to avoid further bleeding. she might need it for her carotid plaques. 3- Colon mass, concerning for cancer. - Ct chest with no mets - Surgical consult appreciated, patient is booked for OR tentatively on Monday - ONC consult 4- h/o HTN : Cont Norvasc. DVt PX case was d/w family by team Dispo: HLOC.
--- NOTE | 2019-03-07 17:39 | HOSP ---
Subjective - Review of Symptoms Events since last encounter: Discussed with patient and family at length about surgery planned for Monday. Patient in agreement to stay until Monday for further monitoring and tentative surgery with Dr. Oneil. Surgery consult appreciated. Physical Examination Vital Signs: Vital Signs Temperature 98.1 F 03/07/19 13:59 Pulse Rate 20 L 03/07/19 16:00 Respiratory Rate 21 H 03/07/19 06:00 Blood Pressure 147/59 L 03/07/19 16:00 O2 Sat by Pulse Oximetry (%) 100 03/07/19 09:00 Labs: CBC, BMP 03/07/19 05:50 03/07/19 05:50 Visit type - Emergency Visit Emergency Visit: No - New Patient This patient is new to me today: No - Critical Care Critical Care patient: No
[2019-03-07] MEDS ORDERED: PT OWN MED DRAWER 7, Y5N ONE (18:50)
[2019-03-07] MEDS: CEPHALEXIN MONOHYDRATE 500 MG CAPSULE (UD) PO SCH (18:54)
--- NOTE | 2019-03-07 19:05 | PN ---
Physical Exam: SUBJECTIVE: Patient seen and examined 88 y/o F, pmh of htn, hld, glaucoma presented for syncope of a few minute duration associated with LOC and post syncopal symptoms including nausea and headaches. Today pt is asymtpomatic, afebrile, has no other c/o. Denies f/c/n/v/ d/sob/chest pain. OBJECTIVE: Vital Signs Period Temp Pulse Resp BP Sys/Brown Pulse Ox Last 24 Hr 98.1 F-98.6 F 20- 21-27 119-147/48-62 100-100 GENERAL: The patient is awake, alert, and fully oriented, in no acute distress. EYES: PERRL, extraocular movements intact, sclera anicteric, ENT: Oropharynx clear without exudates, moist mucous membranes. NECK: full range of motion, supple. LUNGS: Breath sounds equal, clear to auscultation bilaterally, no wheezes, no crackles, HEART: Regular rate and rhythm, S1, S2, 2/6 systolic murmur, no rub or gallop. ABDOMEN: Soft, nontender, nondistended, normoactive bowel sounds, no guarding EXTREMITIES: 2+ pulses, warm, no edema. PSYCH: Normal mood, normal affect. SKIN: Warm, dry Laboratory Results - last 24 hr CBC,CMP WBC 5.8 K/mm3 (4.0-10.0) 03/07/19 05:50 RBC 3.86 M/mm3 (3.60-5.2) 03/07/19 05:50 Hgb 8.7 GM/dL (10.7-15.3) L 03/07/19 05:50 Hct 28.2 % (32.4-45.2) L 03/07/19 05:50 MCV 72.9 fl (80-96) L 03/07/19 05:50 MCH 22.6 pg (25.7-33.7) L 03/07/19 05:50 MCHC 31.0 g/dl (32.0-36.0) L 03/07/19 05:50 RDW 16.7 % (11.6-15.6) H 03/07/19 05:50 Plt Count 290 K/MM3 (134-434) 03/07/19 05:50 MPV 7.8 fl (7.5-11.1) 03/07/19 05:50 Absolute Neuts (auto) 3.2 K/mm3 (1.5-8.0) 03/07/19 05:50 Neutrophils % 55.2 % (42.8-82.8) D 03/07/19 05:50 Lymphocytes % 29.1 % (8-40) D 03/07/19 05:50 Monocytes % 9.6 % (3.8-10.2) 03/07/19 05:50 Eosinophils % 5.3 % (0-4.5) H D 03/07/19 05:50 Basophils % 0.8 % (0-2.0) 03/07/19 05:50 Nucleated RBC % 0 % (0-0) 03/07/19 05:50 Platelet Estimate Normal 03/06/19 06:05 Platelet Comment Present 03/06/19 06:05 Retic Count 0.96 % (0.5-1.5) 03/03/19 16:20 Haptoglobin 172 mg/dL (34-200) 03/03/19 11:48 Sodium 142 mmol/L (136-145) 03/07/19 05:50 Potassium 3.5 mmol/L (3.5-5.1) 03/07/19 05:50 Chloride 107 mmol/L (98-107) 03/07/19 05:50 Carbon Dioxide 31 mmol/L (21-32) 03/07/19 05:50 Anion Gap 4 MMOL/L (8-16) L 03/07/19 05:50 BUN 16.2 mg/dL (7-18) 03/07/19 05:50 Creatinine 0.9 mg/dL (0.55-1.3) 03/07/19 05:50 Est GFR (CKD-EPI)AfAm 66.63 03/07/19 05:50 Est GFR (CKD-EPI)NonAf 57.49 03/07/19 05:50 POC Glucometer 133 UNITS (80-120) 03/04/19 16:47 Random Glucose 96 mg/dL (74-106) 03/07/19 05:50 Hemoglobin A1c % 5.8 % (4.2-6.3) 03/04/19 05:35 Calcium 8.6 mg/dL (8.5-10.1) 03/07/19 05:50 Phosphorus 2.8 mg/dL (2.5-4.9) 03/04/19 05:35 Magnesium 2.1 mg/dL (1.8-2.4) 03/04/19 05:35 Iron 14 ug/dL (50-175) L 03/03/19 16:20 TIBC 359 ug/dL (250-450) 03/03/19 16:20 Iron Saturation 3 % (17.5-39) L 03/03/19 16:20 Unsaturated IBC 345 ug/dL (200-275) H 03/03/19 16:20 Ferritin 6.8 ng/ml (8-388) L 03/03/19 18:03 Total Bilirubin 0.1 mg/dL (0.2-1) L 03/07/19 05:50 AST 14 U/L (15-37) L 03/07/19 05:50 ALT 13 U/L (13-61) 03/07/19 05:50 Alkaline Phosphatase 46 U/L (45-117) 03/07/19 05:50 LD Total 178 U/L (84-246) 03/03/19 16:20 Creatine Kinase 56 U/L (26-192) 03/03/19 16:20 Troponin I < 0.02 ng/ml (0.00-0.05) 03/03/19 16:20 Total Protein 5.8 g/dl (6.4-8.2) L 03/07/19 05:50 Albumin 2.8 g/dl (3.4-5.0) L 03/07/19 05:50 Active Medications Current Medications Acetaminophen (Tylenol -) 650 mg PO Q4H PRN PRN Reason: FEVER Last Admin: 03/05/19 10:24 Dose: 650 mg Amlodipine Besylate (Norvasc -) 10 mg PO DAILY [facility] Last Admin: 03/07/19 09:45 Dose: 10 mg Atorvastatin Calcium (Lipitor -) 40 mg PO HS [facility] Last Admin: 03/06/19 21:26 Dose: 40 mg Cephalexin HCl (Keflex -) 500 mg PO Q12H [facility] Last Admin: 03/07/19 18:54 Dose: 500 mg Ezetimibe (Zetia -) 10 mg PO HS [facility] Last Admin: 03/06/19 21:26 Dose: 10 mg Heparin Sodium (Porcine) (Heparin -) 5,000 unit SQ TID [facility] Last Admin: 03/07/19 14:47 Dose: 5,000 unit Pantoprazole Sodium (Protonix Iv) 40 mg IVPUSH DAILY [facility] Last Admin: 03/07/19 09:45 Dose: 40 mg Home Medications Medication Instructions Recorded Amlodipine Besylate [Norvasc -] 5 mg PO DAILY 09/30/14 Ezetimibe/Simvastatin [Vytorin 1 tab PO HS 09/30/14 10-20 mg Tablet] traZODone HCL [Desyrel -] 25 mg PO HS PRN #30 tablet 11/28/16 Tolterodine Tartrate LA [Detrol LA 1 tablet PO DAILY 03/04/19 -] Latanoprost 0.005% Eye Drops 1 drop HS 03/06/19 [Xalatan 0.005% Eye Drops -] Cephalexin Monohydrate [Keflex -] 500 mg PO Q12H #6 capsule 03/07/19 Docusate Sodium [Colace -] 100 mg PO BID #60 capsule 03/07/19 Ferrous Sulfate [Feosol] 325 mg PO BID #60 tablet 03/07/19 Microbiology 03/03/19 18:20 Urine - Urine Clean Catch Urine Culture - Final NO GROWTH OBTAINED ASSESSMENT/PLAN: 88 y/o F, pmh of htn, hld, glaucoma presented for syncope of a few minute duration associated with LOC and post syncopal symptoms including nausea and headaches is admitted for syncope #Syncope 2/2 to anemia 2/2 possible malignancy Endoscopy- mass near ICV concerning for malignancy- bx sent- f/u pathology result CT chest done for staging- waiting results Surgery consulted- Dr. Oneil plans for surgery to resect mass on monday. Pt will stay till then. Oncology, Dr Blackwell consulted Patholgy results for biopsy pending- will f/u Hold aspirin till after resection #UTI pt was febrile last night Continue Keflex Q12 for 3 more days #Iron def anemia IV protonix #HTN cont home meds- amlodipine 10 mg #HLD cont atorvastatin #DVT ppx Heparin 5000 TID FEN Regular diet Dispo: surgery for monday, and Chest CT f/u results, f/u with oncology Visit type - Emergency Visit Emergency Visit: Yes ED Registration Date: 03/03/19 Care time: The patient presented to the Emergency Department on the above date and was hospitalized for further evaluation of their emergent condition. - New Patient This patient is new to me today: Yes Date on this admission: 03/07/19 - Critical Care Critical Care patient: No - Discharge Referral Referred to [facility] Med P.C.: No ATTENDING PHYSICIAN STATEMENT I saw and evaluated the patient. I reviewed the resident's note and discussed the case with the resident. I agree with the resident's findings and plan as documented. SUBJECTIVE: OBJECTIVE: ASSESSMENT AND PLAN:
[2019-03-07] MEDS ORDERED: MELATONIN 5 MG TABLETS PO ONE (21:10)
[2019-03-07] MEDS: ATORVASTATIN CA 40 MG TABLET (FP) PO SCH (21:13)
[2019-03-07] MEDS: EZETIMIBE 10 MG TABLET (FP) PO SCH (21:13)
[2019-03-08] MEDS: HEPARIN NA (PORCINE) 5,000 UNITS/ML 1ML VIAL SQ SCH ×2 (06:17→15:28)
[2019-03-08] MEDS: CEPHALEXIN MONOHYDRATE 500 MG CAPSULE (UD) PO SCH ×2 (06:18→18:19)
[2019-03-08 06:23] LABS: BASO % 0.7 % (0-2.0); EOS % 4.4 % (0-4.5); HEMATOCRIT 27.8 % (32.4-45.2); HEMOGLOBIN 8.7 GM/dL (10.7-15.3); MCH 22.9 pg (25.7-33.7); MCHC 31.4 g/dl (32.0-36.0); MEAN CELL VOLUME 72.9 fl (80-96); MEAN PLT VOLUME 7.6 fl (7.5-11.1); MONO % 7.6 % (3.8-10.2); NEUT % 65.3 % (42.8-82.8); PLATELET COUNT 276 K/MM3 (134-434); RBC 3.81 M/mm3 (3.60-5.2); RDW 16.7 % (11.6-15.6); WHITE BLOOD COUNT 7.3 K/mm3 (4.0-10.0)
--- NOTE | 2019-03-08 06:39 | CONSULT ---
Consult - text type - Consultation Consultation Note: 88F with syncopal episode at home. She denies nausea, vomiting, abdominal pain , rectal bleeding, melena. She denies unintentional weight loss. She describes being constipated . There is no family history of colon cancer. She had a colonoscopy remotely. CT scan of the abdomen questioned concentric wall thickening in the right colon. She has been evaluated by cardiology who felt that her syncopal episode was neurocardiogenic in nature. 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 Home Medications - Allergies Allergies/Adverse Reactions: Allergies Allergy/AdvReac Type Severity Reaction Status Date / Time No Known Allergies Allergy Verified 03/03/19 15:32 - Home Medications Home Medications: Ambulatory Orders Amlodipine Besylate [Norvasc -] 5 mg PO DAILY 09/30/14 Ezetimibe/Simvastatin [Vytorin 10-20 mg Tablet] 1 tab PO HS 09/30/14 Acetaminophen [Tylenol .Regular Strength -] 650 mg PO Q4H PRN #0 tablet Aspirin Coated [Ecotrin -] 81 mg PO DAILY #30 tab 11/28/16 Atorvastatin Ca [Lipitor] 10 mg PO HS #30 tablet 11/28/16 traZODone HCL [Desyrel -] 25 mg PO HS PRN #30 tablet 11/28/16 Tolterodine Tartrate LA [Detrol LA -] 1 tablet PO DAILY 03/04/19 Family Medical History Other Family History: Mother: : 99. Father: : cancer in his liver 63. 3 brothers: : CVA, ? ID. 2 sisters: 1 : 92. 2 sons, 4 daughters: healthy. No family history of colorectal cancer or other GI malignancy Physical Exam-GI Vital Signs: afvss Cardiovascular: Yes: Regular Rate and Rhythm, Murmur (2/6 systolic murmur at the RSB) Respiratory: Yes: CTA Bilaterally p/a --soft, nt, bs+ ext . --no c/c/e Imaging - Results Cat Scan: Report Reviewed, Image Reviewed A/P 88F with syncopal episode at home. She denies nausea, vomiting, abdominal pain , rectal bleeding, melena. She denies unintentional weight loss. She describes being constipated . There is no family history of colon cancer. She had a colonoscopy remotely. CT scan of the abdomen questioned concentric wall thickening in the right colon. She has been evaluated by cardiology who felt that her syncopal episode was neurocardiogenic in nature. She had a colonoscopy 03/06 which revealed a ileocecal valve mass, left sided adenomatous polyp, ulcerated area colonoscopy revealing mass at the ICV. Left colon polyp removed with cold snare and area of erythema and ulceration in sigmoid colon, biopsied. Bx of ileocecal mass c/w well differentiated adenoca and left colon polyp c/w tubular adenoma and ulcerated area -cryptitis--inflammation+ iscemia CT c/a/p noncontrast --no obvious metastatic disease. ascending colon thickening cea--nl Was seen by Dr. Oneil-- family is planning on surgery at another hospital will give contact nos. to family
[2019-03-08 06:54] LABS: BLOOD UREA NITROGEN 22.9 mg/dL (7-18); CALCIUM 8.8 mg/dL (8.5-10.1); CREATININE 0.8 mg/dL (0.55-1.3); POTASSIUM 4.1 mmol/L (3.5-5.1)
--- NOTE | 2019-03-08 10:11 | PN ---
Progress Note (short form) - Note Progress Note: General Surgery: Pt without abd complaints today. Passing flatus and tolerating a diet. Vital Signs Period Temp Pulse Resp BP Sys/Brown Pulse Ox Last 24 Hr 97.8 F-98.7 F 20- 15-22 122-147/48-62 100 GEN: A&0x3, NAD ABD: soft, non-distended, non-tender. CBC, BMP 03/08/19 05:20 03/08/19 06:00 A/p: 88 yo female with ileocecal value mass, plan for ileocolic resection on Monday López for surgery on Monday, please clear the pt medically for surgery Check INR in the am and new type and screen Monday morning before surgery Clears beginning Monday and enterig pre-op D/w Dr. Oneil
[2019-03-08] MEDS ORDERED: PT OWN MED DRAWER 7, Y5N ONE (10:19)
--- NOTE | 2019-03-08 11:41 | PN ---
Progress Note (short form) - Note Progress Note: Called by Dr. Mckenzie: IC Valve mass is Adenoca. There was a left sided adenomatous polyp as well and the ulcerated area noted by Dr. Bhardwaj was non specific inflammatory changes without ca or dysplasia. Surgical eval, oncology eval. CEA Problem List - Problems (1) Anemia Code(s): D64.9 - ANEMIA, UNSPECIFIED
[2019-03-08] MEDS: amLODIPine BESYLATE 5 MG TABLET (FP) PO SCH (11:44)
[2019-03-08] MEDS: PANTOPRAZOLE SODIUM 40 MG VIAL IVPUSH SCH (11:45)
--- NOTE | 2019-03-08 14:00 | PATH ---
Surgical Pathology Report Patient Name: STEPHAN SIMMONS [facility]. Rec. #: [id number] /Age/Gender: 1930 (Age: 88) / F Account: [id number] Location: 4 SO PEDS/ADOL Taken: 03/06/2019 Received: 03/07/2019 Reported: 03/08/2019 Physicians: MD Jen Valentin M.D. Christopher DiGiorno, D.O. Specimen(s) Received A: IC VALVE MASS B: LEFT COLON POLYP COLD SNARE C: ULCER AT 25-30 CM BX Clinical History Anemia, abnormal CT scan Postoperative diagnosis: Ileocecal valve mass, colon polyps, diverticulosis, ulceration 25-30 cm Final Diagnosis A. 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 (SEE NOTE). Note: Microsatellite Instability (MSI) studies are being performed and the results will be reported separately in an addendum. Case discussed with Dr. Mendel Cassidy on 03/08/19. B. LEFT COLON, POLYP, POLYPECTOMY: TUBULAR ADENOMA. C. ULCER AT 25 CM, BIOPSY: COLONIC MUCOSA SHOWING ULCERATION WITH MODERATE ACTIVE COLITIS AND CRYPTITIS. (SEE NOTE). Note: In addition, features suggestive of ischemia, such as microcrypts with hyalinization of lamina propria and few fibrin thrombi within capillaries are noted. The differential includes diverticulitis- associated colitis and ischemic colitis, and less likely an infectious etiology. Correlation with clinical and endoscopic findings is suggested. Electronically Signed Katie Urbina M.D. Addendum Reported: 03/14/2019 Addendum Diagnosis Immunohistochemistry (IHC) Testing for Mismatch Repair (MMR) Proteins (performed on specimen A) shows the following results: _X_ MLH1 _X_ Intactnuclear expression _X_ MSH2 _X_ Intact nuclear expression _X_ MSH6 _X_ Intact nuclear expression _X_ PMS2 _X_ Intact nuclear expression _X_ Background nonneoplastic tissue/internal control with intact nuclear expression IHC Interpretation _X_ No loss of nuclear expression of MMR proteins: low probability of microsatellite instability-high(MSI-H) Note: There are exceptions to the above IHC interpretations. These results should not be considered in isolation, and clinical correlation with genetic counseling is recommended to assess the need for germline testing. Katie Urbina M.D. Gross Description A. Received in formalin labeled "ileocecal valve mass biopsy," is a 0.6 x 0.6 x 0.2 cm aggregate of nicole soft tissue fragments. The formalin is filtered and the specimen is entirely submitted in one cassette. B. Received in formalin, labeled "left colon polyp" is a nicole, irregular portion of soft tissue measuring 0.4 cm. in greatest dimension. The specimen is submitted in toto in one cassette. C. Received in formalin, labeled "ulcer at 25-30 cm" are 4 nicole, irregular portions of soft tissue ranging from 0.1-0.2 cm. in greatest dimension. The specimens are submitted in toto in one cassette. 03/07/[address] [facility]03/07/2019
--- NOTE | 2019-03-08 14:39 | PN ---
Physical Exam: SUBJECTIVE: Patient seen and examined 88 y/o F, pmh of htn, hld, glaucoma presented for syncope of a few minute duration associated with LOC and post syncopal symptoms including nausea and headaches. Currently, pt is asymtpomatic, afebrile, has no other c/o. Pt is waiting for surgery on monday. Moving bowel and urinating well. Denies f/c/n/v/d /sob/chest pain. OBJECTIVE: Vital Signs Period Temp Pulse Resp BP Sys/Brown Pulse Ox Last 24 Hr 97.8 F-98.7 F 15- 122-147/40-62 100 GENERAL: The patient is awake, alert, and fully oriented, in no acute distress. EYES: PERRL, extraocular movements intact, sclera anicteric, ENT: Oropharynx clear without exudates, moist mucous membranes. NECK: full range of motion, supple. LUNGS: Breath sounds equal, clear to auscultation bilaterally, no wheezes, no crackles, HEART: Regular rate and rhythm, S1, S2, 2/6 systolic murmur, no rub or gallop. ABDOMEN: Soft, nontender, nondistended, normoactive bowel sounds, no guarding EXTREMITIES: 2+ pulses, warm, no edema. PSYCH: Normal mood, normal affect. SKIN: Warm, dry Laboratory Results - last 24 hr CBC,CMP WBC 7.3 K/mm3 (4.0-10.0) 03/08/19 05:20 RBC 3.81 M/mm3 (3.60-5.2) 03/08/19 05:20 Hgb 8.7 GM/dL (10.7-15.3) L 03/08/19 05:20 Hct 27.8 % (32.4-45.2) L 03/08/19 05:20 MCV 72.9 fl (80-96) L 03/08/19 05:20 MCH 22.9 pg (25.7-33.7) L 03/08/19 05:20 MCHC 31.4 g/dl (32.0-36.0) L 03/08/19 05:20 RDW 16.7 % (11.6-15.6) H 03/08/19 05:20 Plt Count 276 K/MM3 (134-434) 03/08/19 05:20 MPV 7.6 fl (7.5-11.1) 03/08/19 05:20 Absolute Neuts (auto) 4.7 K/mm3 (1.5-8.0) 03/08/19 05:20 Neutrophils % 65.3 % (42.8-82.8) 03/08/19 05:20 Lymphocytes % 22.0 % (8-40) D 03/08/19 05:20 Monocytes % 7.6 % (3.8-10.2) 03/08/19 05:20 Eosinophils % 4.4 % (0-4.5) 03/08/19 05:20 Basophils % 0.7 % (0-2.0) 03/08/19 05:20 Nucleated RBC % 0 % (0-0) 03/08/19 05:20 Platelet Estimate Normal 03/06/19 06:05 Platelet Comment Present 03/06/19 06:05 Retic Count 0.96 % (0.5-1.5) 03/03/19 16:20 Haptoglobin 172 mg/dL (34-200) 03/03/19 11:48 Sodium 142 mmol/L (136-145) 03/08/19 06:00 Potassium 4.1 mmol/L (3.5-5.1) 03/08/19 06:00 Chloride 107 mmol/L (98-107) 03/08/19 06:00 Carbon Dioxide 30 mmol/L (21-32) 03/08/19 06:00 Anion Gap 5 MMOL/L (8-16) L 03/08/19 06:00 BUN 22.9 mg/dL (7-18) H 03/08/19 06:00 Creatinine 0.8 mg/dL (0.55-1.3) 03/08/19 06:00 Est GFR (CKD-EPI)AfAm 76.83 03/08/19 06:00 Est GFR (CKD-EPI)NonAf 66.29 03/08/19 06:00 POC Glucometer 133 UNITS (80-120) 03/04/19 16:47 Random Glucose 96 mg/dL (74-106) 03/08/19 06:00 Hemoglobin A1c % 5.8 % (4.2-6.3) 03/04/19 05:35 Calcium 8.8 mg/dL (8.5-10.1) 03/08/19 06:00 Phosphorus 2.8 mg/dL (2.5-4.9) 03/04/19 05:35 Magnesium 2.1 mg/dL (1.8-2.4) 03/04/19 05:35 Iron 14 ug/dL (50-175) L 03/03/19 16:20 TIBC 359 ug/dL (250-450) 03/03/19 16:20 Iron Saturation 3 % (17.5-39) L 03/03/19 16:20 Unsaturated IBC 345 ug/dL (200-275) H 03/03/19 16:20 Ferritin 6.8 ng/ml (8-388) L 03/03/19 18:03 Total Bilirubin 0.1 mg/dL (0.2-1) L 03/07/19 05:50 AST 14 U/L (15-37) L 03/07/19 05:50 ALT 13 U/L (13-61) 03/07/19 05:50 Alkaline Phosphatase 46 U/L (45-117) 03/07/19 05:50 LD Total 178 U/L (84-246) 03/03/19 16:20 Creatine Kinase 56 U/L (26-192) 03/03/19 16:20 Troponin I < 0.02 ng/ml (0.00-0.05) 03/03/19 16:20 Total Protein 5.8 g/dl (6.4-8.2) L 03/07/19 05:50 Albumin 2.8 g/dl (3.4-5.0) L 03/07/19 05:50 Carcinoembryonic Ag 3.1 ng/mL (0.0-4.7) 03/07/19 05:50 Active Medications Current Medications Acetaminophen (Tylenol -) 650 mg PO Q4H PRN PRN Reason: FEVER Last Admin: 03/05/19 10:24 Dose: 650 mg Alvimopan (Entereg Capsule (Restricted) -) 12 mg PO BID [facility] Amlodipine Besylate (Norvasc -) 10 mg PO DAILY [facility] Last Admin: 03/08/19 11:44 Dose: 10 mg Atorvastatin Calcium (Lipitor -) 40 mg PO HS [facility] Last Admin: 03/07/19 21:13 Dose: 40 mg Cephalexin HCl (Keflex -) 500 mg PO Q12H [facility] Last Admin: 03/08/19 06:18 Dose: 500 mg Ezetimibe (Zetia -) 10 mg PO HS [facility] Last Admin: 03/07/19 21:13 Dose: 10 mg Heparin Sodium (Porcine) (Heparin -) 5,000 unit SQ TID [facility] Last Admin: 03/08/19 06:17 Dose: 5,000 unit Pantoprazole Sodium (Protonix Iv) 40 mg IVPUSH DAILY [facility] Last Admin: 03/08/19 11:45 Dose: 40 mg Home Medications Medication Instructions Recorded Amlodipine Besylate [Norvasc -] 5 mg PO DAILY 09/30/14 Ezetimibe/Simvastatin [Vytorin 1 tab PO HS 09/30/14 10-20 mg Tablet] traZODone HCL [Desyrel -] 25 mg PO HS PRN #30 tablet 11/28/16 Tolterodine Tartrate LA [Detrol LA 1 tablet PO DAILY 03/04/19 -] Latanoprost 0.005% Eye Drops 1 drop HS 03/06/19 [Xalatan 0.005% Eye Drops -] Cephalexin Monohydrate [Keflex -] 500 mg PO Q12H #6 capsule 03/07/19 Docusate Sodium [Colace -] 100 mg PO BID #60 capsule 03/07/19 Ferrous Sulfate [Feosol] 325 mg PO BID #60 tablet 03/07/19 Microbiology 03/03/19 18:20 Urine - Urine Clean Catch Urine Culture - Final NO GROWTH OBTAINED ASSESSMENT/PLAN: 88 y/o F, pmh of htn, hld, glaucoma presented for syncope of a few minute duration associated with LOC and post syncopal symptoms including nausea and headaches is admitted for syncope #Syncope 2/2 to anemia 2/2 possible malignancy Endoscopy- mass near ICV concerning for malignancy- bx sent- Waiting for path results CT chest done for staging- Mild emphysematous changes, minimal atelectatic changes in lower lung, extending to the posterior costophrenic angle, small pleural calcification on right. Dense calcification of coronary arteries. Surgery consulted- Dr. Oneil plans for surgery to resect mass on monday. Pt will stay till then. Oncology eval, Dr Blackwell consulted Patholgy results for biopsy pending- will f/u Hold aspirin till after resection #UTI Continue Keflex Q12 for 2 more days #Iron def anemia IV protonix #HTN cont home meds- amlodipine 10 mg #HLD cont atorvastatin #DVT ppx Heparin 5000 TID FEN Regular diet Dispo: surgery for monday, f/u with oncology, NPO after midnight on monday Visit type - Emergency Visit Emergency Visit: Yes ED Registration Date: 03/03/19 Care time: The patient presented to the Emergency Department on the above date and was hospitalized for further evaluation of their emergent condition. - New Patient This patient is new to me today: Yes Date on this admission: 03/08/19 - Critical Care Critical Care patient: No - Discharge Referral Referred to [facility] Med P.C.: No ATTENDING PHYSICIAN STATEMENT I saw and evaluated the patient. I reviewed the resident's note and discussed the case with the resident. I agree with the resident's findings and plan as documented. SUBJECTIVE: OBJECTIVE: ASSESSMENT AND PLAN:
--- NOTE | 2019-03-08 17:23 | PN ---
Teaching Attending Note Name of Resident: Selene Mitchell ATTENDING PHYSICIAN STATEMENT I saw and evaluated the patient. I reviewed the resident's note and discussed the case with the resident. I agree with the resident's findings and plan as documented. SUBJECTIVE: no fever or chills, no pain , no complaints today OBJECTIVE: NAD CV: RRR, no MRG Lungs: CTAB Ext: No edema or erythema. Abd: soft, ND, NL BS, NT ASSESSMENT AND PLAN: 88 y/o lady with h/o HTN, HLP, and glaucoma who presented with LOC 1- Syncope: likely vasovagal 2- Iron deficiency anemia , due to colon cancer - tolerated regular diet - iron pills at id with colace and senna - patient was recommended to hold aspirin until her cancer is surgically removed to avoid further bleeding. she might need it for her carotid plaques. 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 DVt PX : change to lovenox. hold after Monday's dose Dispo: HLOC.
[2019-03-08] MEDS ORDERED: ACETAMINOPHEN 325 MG TABLET (FP) PO PRN (19:33)
[2019-03-08] MEDS: ATORVASTATIN CA 40 MG TABLET (FP) PO SCH (22:30)
[2019-03-08] MEDS: EZETIMIBE 10 MG TABLET (FP) PO SCH (22:31)
[2019-03-08] MEDS ORDERED: MELATONIN 5 MG TABLETS PO ONE (23:27)
[2019-03-09] MEDS: CEPHALEXIN MONOHYDRATE 500 MG CAPSULE (UD) PO SCH ×2 (05:41→17:31)
[2019-03-09 08:42] LABS: HEMATOCRIT 27.8 % (32.4-45.2); MCH 23.4 pg (25.7-33.7); MCHC 32.2 g/dl (32.0-36.0); MEAN CELL VOLUME 72.5 fl (80-96); MEAN PLT VOLUME 7.6 fl (7.5-11.1); PLATELET COUNT 308 K/MM3 (134-434); RBC 3.84 M/mm3 (3.60-5.2); RDW 17.2 % (11.6-15.6); WHITE BLOOD COUNT 6.6 K/mm3 (4.0-10.0)
[2019-03-09 08:57] LABS: INR 1.06 (0.83-1.09); PROTHROMBIN TIME (PATIENT) 12.5 SEC (9.7-13.0)
[2019-03-09 09:00] LABS: BLOOD UREA NITROGEN 15.4 mg/dL (7-18); CALCIUM 8.7 mg/dL (8.5-10.1); CREATININE 0.7 mg/dL (0.55-1.3)
[2019-03-09] MEDS: ENOXAPARIN NA (PORCINE) 40 MG/0.4 ML DISP.SYRIN SQ SCH (10:16)
[2019-03-09] MEDS: amLODIPine BESYLATE 10 MG TABLET (FP) PO SCH (10:16)
[2019-03-09] MEDS: PANTOPRAZOLE SODIUM 40 MG VIAL IVPUSH SCH (10:16)
--- NOTE | 2019-03-09 11:27 | PN ---
Teaching Attending Note Name of Resident: Pérez Hirsch ATTENDING PHYSICIAN STATEMENT I saw and evaluated the patient. I reviewed the resident's note and discussed the case with the resident. I agree with the resident's findings and plan as documented. SUBJECTIVE: No fever or chills. No AC , no Abd pain. No BM after colo. No N/V. had R sided chest pain in her R breast last night , was sharp and recurrent x 2 hours. Not associated with SOB , light headedness or sweating. it resolved after mylanta was prescribed OBJECTIVE: NAD CV: RRR, no MRG Lungs: CTAB Ext: No edema or erythema. Abd: soft, ND, NL BS, NT Breast exam: No masses or skin changes on both breasts. 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 DVt PX: lovenox. hold for sx after tomorrow's dose Dispo: HLOC.
--- NOTE | 2019-03-09 13:39 | PN ---
Physical Exam: SUBJECTIVE: Patient seen and examined at bedside. No events overnight, no new complaints. OBJECTIVE: Vital Signs Period Temp Pulse Resp BP Sys/Brown Pulse Ox Last 24 Hr 97.9 F-98.4 F 78-98 14-20 120-145/40-82 97-100 GENERAL: The patient is awake, alert, and fully oriented, in no acute distress. NECK: Trachea midline, full range of motion, supple. LUNGS: Breath sounds equal, clear to auscultation bilaterally, no wheezes, no crackles, no accessory muscle use. HEART: Regular rate and rhythm, S1, S2 without murmur, rub or gallop. ABDOMEN: Soft, nontender, nondistended, normoactive bowel sounds, no guarding, no rebound, no hepatosplenomegaly, no masses. EXTREMITIES: 2+ pulses, warm, well-perfused, no edema. NEUROLOGICAL: Cranial nerves II through X grossly intact. Normal speech, gait not observed. Laboratory Results - last 24 hr 03/09/19 03/09/19 03/09/19 07:15 07:15 07:15 WBC 6.6 RBC 3.84 Hgb 9.0 L Hct 27.8 L MCV 72.5 L MCH 23.4 L MCHC 32.2 RDW 17.2 H Plt Count 308 MPV 7.6 PT with INR 12.50 INR 1.06 Sodium 140 Potassium 4.0 Chloride 107 Carbon Dioxide 29 Anion Gap 4 L BUN 15.4 Creatinine 0.7 Est GFR (CKD-EPI)AfAm 90.29 Est GFR (CKD-EPI)NonAf 77.90 Random Glucose 80 Calcium 8.7 Active Medications Generic Name Dose Route Start Last Admin Trade Name Cristianq PRN Reason Stop Dose Admin Acetaminophen 650 mg 03/08/19 19:33 Tylenol - PO Q4H PRN FEVER Alvimopan 12 mg 03/11/19 10:00 Entereg Capsule (Restricted) - PO BID RAHUL Amlodipine Besylate 10 mg 03/09/19 10:00 03/09/19 10:16 Norvasc - PO 10 mg DAILY RAHUL Administration Atorvastatin Calcium 40 mg 03/08/19 22:00 03/08/19 22:30 Lipitor - PO 40 mg HS RAHUL Administration Cephalexin HCl 500 mg 03/09/19 06:00 03/09/19 05:41 Keflex - PO 500 mg Q12H RAHUL Administration Ezetimibe 10 mg 03/08/19 22:00 03/08/19 22:31 Zetia - PO 10 mg HS RAHUL Administration Enoxaparin Sodium 40 mg 03/09/19 10:00 03/09/19 10:16 Lovenox - SQ 03/11/19 09:59 40 mg DAILY RAHUL Administration Pantoprazole Sodium 40 mg 03/09/19 10:00 03/09/19 10:16 Protonix Iv IVPUSH 40 mg DAILY RAHUL Administration ASSESSMENT/PLAN: 88 y/o F, pmh of htn, hld, glaucoma presented for syncope of a few minute duration associated with LOC and post syncopal symptoms including nausea and headaches is admitted for syncope ICV mass -Endoscopy showed mass near ICV concerning for malignancy -bx sent; awaiting path -CT chest: dense calcification of coronary arteries, no masses -Surgery consulted- Dr. Oneil plans for surgery to resect mass on monday. -Oncology onboard -will hold lovenox monday night -NPO past midnight monday night UTI -Continue Keflex Q12 for 1 more day; will d/c monday Iron def anemia -IV protonix -mass may be contributing HTN -cont home meds- amlodipine 10 mg HLD -cont atorvastatin FEN -no fluids indicated -lytes wnl, will monitor -regular diet DVT ppx -Lovenox 40mg SQ daily, HOLD MONDAY NIGHT Dispo: -surgery for monday, f/u with oncology Visit type - Emergency Visit Emergency Visit: Yes ED Registration Date: 03/03/19 Care time: The patient presented to the Emergency Department on the above date and was hospitalized for further evaluation of their emergent condition. - New Patient This patient is new to me today: Yes Date on this admission: 03/09/19 - Critical Care Critical Care patient: No - Discharge Referral Referred to [facility] Med P.C.: No ATTENDING PHYSICIAN STATEMENT I saw and evaluated the patient. I reviewed the resident's note and discussed the case with the resident. I agree with the resident's findings and plan as documented. SUBJECTIVE: OBJECTIVE: ASSESSMENT AND PLAN:
[2019-03-09] MEDS: ATORVASTATIN CA 40 MG TABLET (FP) PO SCH (23:16)
[2019-03-09] MEDS: EZETIMIBE 10 MG TABLET (FP) PO SCH (23:16)
[2019-03-09] MEDS: MELATONIN 5 MG TABLETS PO SCH (23:16)
[2019-03-10] MEDS: CEPHALEXIN MONOHYDRATE 500 MG CAPSULE (UD) PO SCH (06:53)
[2019-03-10 08:21] LABS: BLOOD UREA NITROGEN 15.2 mg/dL (7-18); CREATININE 0.8 mg/dL (0.55-1.3); POTASSIUM 4.1 mmol/L (3.5-5.1)
[2019-03-10] MEDS: PANTOPRAZOLE SODIUM 40 MG VIAL IVPUSH SCH (10:05)
[2019-03-10] MEDS: amLODIPine BESYLATE 10 MG TABLET (FP) PO SCH (10:05)
[2019-03-10] MEDS: ENOXAPARIN NA (PORCINE) 40 MG/0.4 ML DISP.SYRIN SQ SCH (11:10)
[2019-03-10] MEDS ORDERED: PEG 3350/NA SULF BICARB CL/KCL 4000 ML SOLN.RECON PO ONE (12:01)
[2019-03-10] MEDS: NEOMYCIN SO4 500 MG TABLET PO SCH ×3 (13:30→19:09)
[2019-03-10] MEDS ORDERED: POLYETHYLENE GLYCOL 3350 255 GM BTL PO ONE (15:30)
[2019-03-10] MEDS: metroNIDAZOLE 500 MG TABLET PO SCH ×2 (15:42→22:29)
--- NOTE | 2019-03-10 17:12 | PN ---
Progress Note (short form) - Note Progress Note: Subjective: No fever or chills. no AC , no abd pain . Objective: Vital Signs: Last Vital Signs Temp Pulse Resp BP Pulse Ox 97.9 F 86 20 136/70 98 03/10/19 15:15 03/10/19 15:15 03/10/19 15:15 03/10/19 15:15 03/10/19 09:00 Laboratory Results - last 24 hr 03/10/19 07:05 Sodium 139 Potassium 4.1 Chloride 105 Carbon Dioxide 28 Anion Gap 6 L BUN 15.2 Creatinine 0.8 Est GFR (CKD-EPI)AfAm 76.83 Est GFR (CKD-EPI)NonAf 66.29 Random Glucose 83 Calcium 9.0 Physical Exam: NAD CV: RRR, no MRG Lungs: CTAB Ext: No edema or erythema. 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 DVt PX: lovenox. hold for sx after today's dose Dispo: HLOC. Visit type - Emergency Visit Emergency Visit: Yes ED Registration Date: 03/03/19 Care time: The patient presented to the Emergency Department on the above date and was hospitalized for further evaluation of their emergent condition. - New Patient This patient is new to me today: No - Critical Care Critical Care patient: No
[2019-03-10] MEDS ORDERED: PROCHLORPERAZINE INJECTION 10 MG/2 ML VIAL IVPB ONE (21:21)
[2019-03-10] MEDS ORDERED: ACETAMINOPHEN 1000 MG/100 ML VIAL (NON FORMULARY) IVPB ONE (21:21)
[2019-03-10] MEDS: ATORVASTATIN CA 40 MG TABLET (FP) PO SCH (22:29)
[2019-03-10] MEDS: MELATONIN 5 MG TABLETS PO SCH (22:29)
[2019-03-10] MEDS: EZETIMIBE 10 MG TABLET (FP) PO SCH (22:29)
[2019-03-11] MEDS: metroNIDAZOLE 500 MG TABLET PO SCH (06:11)
[2019-03-11 08:24] LABS: INR 1.08 (0.83-1.09); PROTHROMBIN TIME (PATIENT) 12.8 SEC (9.7-13.0)
[2019-03-11 08:29] LABS: HEMATOCRIT 29.8 % (32.4-45.2); HEMOGLOBIN 9.4 GM/dL (10.7-15.3); MCH 23.4 pg (25.7-33.7); MCHC 31.5 g/dl (32.0-36.0); MEAN CELL VOLUME 74.2 fl (80-96); MEAN PLT VOLUME 7.5 fl (7.5-11.1); PLATELET COUNT 305 K/MM3 (134-434); RBC 4.02 M/mm3 (3.60-5.2); RDW 17.2 % (11.6-15.6); WHITE BLOOD COUNT 6.4 K/mm3 (4.0-10.0)
[2019-03-11] MEDS ORDERED: ERTAPENEM SODIUM 1 GM in SODIUM CHLORIDE 50 ML IVPB ONE (09:00)
[2019-03-11] MEDS ORDERED: ALVIMOPAN 12 MG CAP PO SCH ×2 (10:00)
[2019-03-11] MEDS: amLODIPine BESYLATE 10 MG TABLET (FP) PO SCH (10:00)
--- NOTE | 2019-03-11 10:03 | EKG ---
Test Reason : Blood Pressure : / mmHG Vent. Rate : 092 BPM Atrial Rate : 092 BPM P-R Int : 146 ms QRS Dur : 084 ms QT Int : 294 ms P-R-T Axes : 013 -04 -01 degrees QTc Int : 363 ms NORMAL SINUS RHYTHM MINIMAL VOLTAGE CRITERIA FOR LVH, MAY BE NORMAL VARIANT INFERIOR INFARCT (CITED ON OR BEFORE 10-MAR-2019) ABNORMAL ECG WHEN COMPARED WITH ECG OF 03-MAR-2019 15:27, T WAVE VARIATION Confirmed by TREY BRITO MD ([id number]) on 03/11/2019 10:02:49 AM Referred By: SAMMI Confirmed By:TREY BRITO MD
[2019-03-11] MEDS: PANTOPRAZOLE SODIUM 40 MG VIAL IVPUSH SCH (10:31)
--- NOTE | 2019-03-11 14:57 | PN ---
Physical Exam: SUBJECTIVE: Patient seen and examined 88 y/o F, pmh of htn, hld, glaucoma presented for syncope of a few minute duration associated with LOC and post syncopal symptoms including nausea and headaches. Overnight pt experienced n/v with substernal chest pain of a few minutes duration. EKG and trops were drawn and came back negative. Clompazine and Offirmiv given. Pt improved significantly now. C/o no further symptoms or issues. Denies f/c/n/n/d/chest pain/sob. OBJECTIVE: Vital Signs Last Vital Signs Temp Pulse Resp BP Pulse Ox 97.8 F 79 18 112/81 97 03/11/19 10:32 03/11/19 10:32 03/11/19 10:32 03/11/19 10:32 03/10/19 21:00 GENERAL: The patient is awake, alert, and fully oriented, in no acute distress. EYES: PERRL, extraocular movements intact, sclera anicteric, ENT: Oropharynx clear without exudates, moist mucous membranes. NECK: supple. No LAD, no carotid bruit. LUNGS: Breath sounds equal, clear to auscultation bilaterally, no wheezes, no crackles, HEART: Regular rate and rhythm, S1, S2, 2/6 systolic murmur, no rub or gallop. ABDOMEN: Soft, nontender, nondistended, normoactive bowel sounds, no guarding EXTREMITIES: 2+ pulses, warm, no edema. PSYCH: Normal mood, normal affect. SKIN: Warm, dry Laboratory Results - last 24 hr CBC,CMP WBC 6.4 K/mm3 (4.0-10.0) 03/11/19 07:35 RBC 4.02 M/mm3 (3.60-5.2) 03/11/19 07:35 Hgb 9.4 GM/dL (10.7-15.3) L 03/11/19 07:35 Hct 29.8 % (32.4-45.2) L 03/11/19 07:35 MCV 74.2 fl (80-96) L 03/11/19 07:35 MCH 23.4 pg (25.7-33.7) L 03/11/19 07:35 MCHC 31.5 g/dl (32.0-36.0) L 03/11/19 07:35 RDW 17.2 % (11.6-15.6) H 03/11/19 07:35 Plt Count 305 K/MM3 (134-434) 03/11/19 07:35 MPV 7.5 fl (7.5-11.1) 03/11/19 07:35 Absolute Neuts (auto) 4.7 K/mm3 (1.5-8.0) 03/08/19 05:20 Neutrophils % 65.3 % (42.8-82.8) 03/08/19 05:20 Lymphocytes % 22.0 % (8-40) D 03/08/19 05:20 Monocytes % 7.6 % (3.8-10.2) 03/08/19 05:20 Eosinophils % 4.4 % (0-4.5) 03/08/19 05:20 Basophils % 0.7 % (0-2.0) 03/08/19 05:20 Nucleated RBC % 0 % (0-0) 03/08/19 05:20 Platelet Estimate Normal 03/06/19 06:05 Platelet Comment Present 03/06/19 06:05 Retic Count 0.96 % (0.5-1.5) 03/03/19 16:20 Haptoglobin 172 mg/dL (34-200) 03/03/19 11:48 Sodium 139 mmol/L (136-145) 03/10/19 07:05 Potassium 4.1 mmol/L (3.5-5.1) 03/10/19 07:05 Chloride 105 mmol/L (98-107) 03/10/19 07:05 Carbon Dioxide 28 mmol/L (21-32) 03/10/19 07:05 Anion Gap 6 MMOL/L (8-16) L 03/10/19 07:05 BUN 15.2 mg/dL (7-18) 03/10/19 07:05 Creatinine 0.8 mg/dL (0.55-1.3) 03/10/19 07:05 Est GFR (CKD-EPI)AfAm 76.83 03/10/19 07:05 Est GFR (CKD-EPI)NonAf 66.29 03/10/19 07:05 POC Glucometer 133 UNITS (80-120) 03/04/19 16:47 Random Glucose 83 mg/dL (74-106) 03/10/19 07:05 Hemoglobin A1c % 5.8 % (4.2-6.3) 03/04/19 05:35 Calcium 9.0 mg/dL (8.5-10.1) 03/10/19 07:05 Phosphorus 2.8 mg/dL (2.5-4.9) 03/04/19 05:35 Magnesium 2.1 mg/dL (1.8-2.4) 03/04/19 05:35 Iron 14 ug/dL (50-175) L 03/03/19 16:20 TIBC 359 ug/dL (250-450) 03/03/19 16:20 Iron Saturation 3 % (17.5-39) L 03/03/19 16:20 Unsaturated IBC 345 ug/dL (200-275) H 03/03/19 16:20 Ferritin 6.8 ng/ml (8-388) L 03/03/19 18:03 Total Bilirubin 0.1 mg/dL (0.2-1) L 03/07/19 05:50 AST 14 U/L (15-37) L 03/07/19 05:50 ALT 13 U/L (13-61) 03/07/19 05:50 Alkaline Phosphatase 46 U/L (45-117) 03/07/19 05:50 LD Total 178 U/L (84-246) 03/03/19 16:20 Creatine Kinase 56 U/L (26-192) 03/03/19 16:20 CK-MB (CK-2) < 1.0 ng/mL (0.5-3.6) 03/10/19 21:05 Troponin I < 0.02 ng/ml (0.00-0.05) 03/11/19 07:35 Total Protein 5.8 g/dl (6.4-8.2) L 03/07/19 05:50 Albumin 2.8 g/dl (3.4-5.0) L 03/07/19 05:50 Carcinoembryonic Ag 3.1 ng/mL (0.0-4.7) 03/07/19 05:50 Active Medications Current Medications Acetaminophen (Tylenol -) 650 mg PO Q4H PRN PRN Reason: FEVER Alvimopan (Entereg Capsule (Restricted) -) 12 mg PO BID RAHUL Amlodipine Besylate (Norvasc -) 10 mg PO DAILY [facility] Last Admin: 03/11/19 10:00 Dose: Not Given Atorvastatin Calcium (Lipitor -) 40 mg PO [facility] Last Admin: 03/10/19 22:29 Dose: 40 mg Ezetimibe (Zetia -) 10 mg PO HS [facility] Last Admin: 03/10/19 22:29 Dose: 10 mg Ertapenem 1 gm/ Sodium (Chloride) 50 mls @ 100 mls/hr IVPB ONCE ONE Stop: 03/11/19 15:14 Melatonin (Melatonin) 10 mg PO [facility] Last Admin: 03/10/19 22:29 Dose: 10 mg Pantoprazole Sodium (Protonix Iv) 40 mg IVPUSH DAILY [facility] Last Admin: 03/11/19 10:31 Dose: 40 mg Home Medications Medication Instructions Recorded Amlodipine Besylate [Norvasc -] 5 mg PO DAILY 09/30/14 Ezetimibe/Simvastatin [Vytorin 1 tab PO HS 09/30/14 10-20 mg Tablet] traZODone HCL [Desyrel -] 25 mg PO HS PRN #30 tablet 11/28/16 Tolterodine Tartrate LA [Detrol LA 1 tablet PO DAILY 03/04/19 -] Latanoprost 0.005% Eye Drops 1 drop HS 03/06/19 [Xalatan 0.005% Eye Drops -] Cephalexin Monohydrate [Keflex -] 500 mg PO Q12H #6 capsule 03/07/19 Docusate Sodium [Colace -] 100 mg PO BID #60 capsule 03/07/19 Ferrous Sulfate [Feosol] 325 mg PO BID #60 tablet 03/07/19 Microbiology 03/03/19 18:20 Urine - Urine Clean Catch Urine Culture - Final NO GROWTH OBTAINED ASSESSMENT/PLAN: 88 y/o F, pmh of htn, hld, glaucoma presented for syncope of a few minute duration associated with LOC and post syncopal symptoms including nausea and headaches is admitted for syncope #Syncope 2/2 to anemia 2/2 possible malignancy Pathology results- Adenocarcinoma of the colon, 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 CT chest done for staging- Mild emphysematous changes, minimal atelectatic changes in lower lung, extending to the posterior costophrenic angle, small pleural calcification on right. Dense calcification of coronary arteries. Dr. Oneil postponed todays surgery to tomorrow Oncology eval, Dr Blackwell/Dr Slater said they will follow up pt after surgery Hold aspirin till after resection Clear liquids for now NPO after midnight today #UTI D/c Keflex 2 doses of ertapenem given for surgery ppx #Iron def anemia IV protonix #HTN cont home meds- amlodipine 10 mg #HLD cont atorvastatin #DVT ppx SCDs FEN Clear liquid diet Dispo: surgery for tomorrow, NPO after midnight on tonight Visit type - Emergency Visit Emergency Visit: Yes ED Registration Date: 03/03/19 Care time: The patient presented to the Emergency Department on the above date and was hospitalized for further evaluation of their emergent condition. - New Patient This patient is new to me today: Yes Date on this admission: 03/11/19 - Critical Care Critical Care patient: No - Discharge Referral Referred to [facility] Med P.C.: No ATTENDING PHYSICIAN STATEMENT I saw and evaluated the patient. I reviewed the resident's note and discussed the case with the resident. I agree with the resident's findings and plan as documented. SUBJECTIVE: OBJECTIVE: ASSESSMENT AND PLAN:
[2019-03-11] MEDS: ERTAPENEM SODIUM 1 GM in SODIUM CHLORIDE 50 ML IVPB ONE (16:15)
[2019-03-11] MEDS ORDERED: ALPRAZolam 0.25 MG TABLET PO PRN (17:12)
--- NOTE | 2019-03-11 18:31 | PN ---
Teaching Attending Note Name of Resident: Ángel Combs ATTENDING PHYSICIAN STATEMENT I saw and evaluated the patient. I reviewed the resident's note and discussed the case with the resident. I agree with the resident's findings and plan as documented. SUBJECTIVE: No fever or chills. No AC . no SOB . NO CP. events noted for CP over night associated with N/V after bowel prep. OBJECTIVE: NAD CV: RRR, no MRG Lungs: CTAB Abd: soft, NT, ND, NL BS Ext: No edema or erythema. 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 5- Cp last night . likely due to anxiety vs GI source. EKG reviewed, no change form prior and nl trop DVt PX: will resume after sx SCDs for now
[2019-03-11] MEDS ORDERED: PT OWN MED DRAWER 7, Y5N ONE (20:43)
[2019-03-11] MEDS: EZETIMIBE 10 MG TABLET (FP) PO SCH (21:37)
[2019-03-11] MEDS: ATORVASTATIN CA 40 MG TABLET (FP) PO SCH (21:37)
[2019-03-11] MEDS: MELATONIN 5 MG TABLETS PO SCH (21:39)
[2019-03-12] MEDS ORDERED: ERTAPENEM SODIUM 1 GM in SODIUM CHLORIDE 50 ML IVPB ONE (08:15)
[2019-03-12] MEDS ORDERED: PT OWN MED DRAWER 7, Y5N ONE (08:16)
[2019-03-12 08:32] LABS: HEMATOCRIT 30.8 % (32.4-45.2); HEMOGLOBIN 9.7 GM/dL (10.7-15.3); MCH 23.7 pg (25.7-33.7); MCHC 31.7 g/dl (32.0-36.0); MEAN CELL VOLUME 74.8 fl (80-96); MEAN PLT VOLUME 7.6 fl (7.5-11.1); PLATELET COUNT 311 K/MM3 (134-434); RBC 4.11 M/mm3 (3.60-5.2); RDW 17.8 % (11.6-15.6); WHITE BLOOD COUNT 6.3 K/mm3 (4.0-10.0)
[2019-03-12] MEDS: ERTAPENEM SODIUM 1 GM in SODIUM CHLORIDE 50 ML IVPB ONE (08:34)
[2019-03-12] MEDS: ALVIMOPAN 12 MG CAP PO SCH ×2 (09:03→23:34)
[2019-03-12 09:05] LABS: ALBUMIN 3.1 g/dl (3.4-5.0); BILIRUBIN,TOTAL 0.4 mg/dL (0.2-1); BLOOD UREA NITROGEN 11.6 mg/dL (7-18); CREATININE 0.9 mg/dL (0.55-1.3); POTASSIUM 4.1 mmol/L (3.5-5.1); TOT PROT 6.3 g/dl (6.4-8.2)
[2019-03-12 09:26] LABS: INR 1.08 (0.83-1.09); PROTHROMBIN TIME (PATIENT) 12.8 SEC (9.7-13.0)
[2019-03-12 09:28] LABS: ACTIVATED PTT 32.2 SECONDS (25.2-36.5)
[2019-03-12] MEDS ORDERED: ALVIMOPAN 12 MG CAP PO ONE (09:50)
[2019-03-12] MEDS ORDERED: PROPOFOL 20 ML ONE ×2 (10:13)
[2019-03-12] MEDS ORDERED: ROCURONIUM BROMIDE 50 MG/5 ML SYRINGE ONE ×2 (10:13→11:24)
[2019-03-12] MEDS ORDERED: MIDAZOLAM HCL 2 MG/2 ML SINGLE DOSE VIAL ONE (10:13)
[2019-03-12] MEDS: amLODIPine BESYLATE 10 MG TABLET (FP) PO SCH (10:21)
[2019-03-12] MEDS: PANTOPRAZOLE SODIUM 40 MG VIAL IVPUSH SCH (10:22)
[2019-03-12] MEDS ORDERED: ePHEDrine SULFATE 50 MG/1 ML AMPULE ONE (10:44)
[2019-03-12] MEDS ORDERED: NEOSTIGMINE METHYLSULFATE 0.5 MG/ML - 10 ML MDV ONE (12:53)
[2019-03-12] MEDS ORDERED: LIDOCAINE HCL/PF 2% SDV 5ML VIAL ONE (12:53)
[2019-03-12] MEDS ORDERED: GLYCOPYRROLATE 0.2 MG/1 ML VIAL ONE (12:53)
[2019-03-12] MEDS ORDERED: DEXAMETHASONE SOD PHOSPHATE 4 MG/1 ML VIAL ONE (12:53)
[2019-03-12] MEDS ORDERED: ACETAMINOPHEN 1000 MG/100 ML VIAL (NON FORMULARY) IVPB PRN (13:33)
[2019-03-12] MEDS ORDERED: HYDROmorphone *PCA* 10MG/50ML DISP.SYRIN PCA SCH ×2 (13:45→14:03)
[2019-03-12] MEDS ORDERED: HYDROmorphone *PCA* 10MG/50ML DISP.SYRIN ONE (13:49)
[2019-03-12] MEDS ORDERED: NALOXONE HCL 0.4 MG/ML VIAL IVPUSH PRN (14:03)
--- NOTE | 2019-03-12 14:10 | OP ---
Operative Note - Note: Operative Date: 03/12/19 Pre-Operative Diagnosis: Carcinoma of cecum Operation: Ileocolic resection Findings: as dictated Post-Operative Diagnosis: Same as Pre-op Surgeon: Maximilian Oneil Car Refinisher: Lisette Vail Anesthesiologist/CONSTRUCTION SAFETY MANAGER: Allison Gimenez MD Anesthesia: General Specimens Removed: right colon Estimated Blood Loss (mls): 100 (ml) Drains, Volume Out (mls): 200 (ml clear urine) Fluid Volume Replaced (mls): 1,700 (ml LR) Operative Report Dictated: Yes
--- NOTE | 2019-03-12 14:11 | SURG ---
Surgery Dispatch Machine Runner Note Dispatch Machine Runner: Lisette Vail PA-C (Suzy) Date of Service: 03/12/19 Diagnosis: Carcinoma of cecum Procedure: Operation: Ileocolic resection I was present for the entirety of the operative procedure. For further detail, please refer to operative report.
[2019-03-12] MEDS: HYDROmorphone *PCA* 10MG/50ML DISP.SYRIN PCA SCH (14:20)
[2019-03-12] MEDS: ONDANSETRON 4 MG/2 ML VIAL IVPUSH PRN ×2 (14:30→23:44)
[2019-03-12] MEDS ORDERED: SODIUM CHLORIDE 0.9% 500 ML INFUS.BAG IV SCH (14:30)
[2019-03-12] MEDS ORDERED: LACTATED RINGERS SOLUTION 1,000 ML/1,000 ML INFUS.BAG IV SCH ×2 (15:00→18:57)
--- NOTE | 2019-03-12 17:44 | PN ---
Physical Exam: SUBJECTIVE: Patient seen and examined Currently, pt is asymtpomatic, afebrile, has no other c/o. Pt is waiting for surgery. Moving bowel and urinating well. Denies f/c/n/v/d/sob/chest pain. OBJECTIVE: Vital Signs Period Temp Pulse Resp BP Sys/Brown Pulse Ox Last 24 Hr 97.3 F-698.4 F 74-98 13-27 115-157/50-78 95-100 GENERAL: The patient is awake, alert, and fully oriented, in no acute distress. EYES: PERRL, extraocular movements intact, sclera anicteric, ENT: Oropharynx clear without exudates, moist mucous membranes. NECK: full range of motion, supple. LUNGS: Breath sounds equal, clear to auscultation bilaterally, no wheezes, no crackles, HEART: Regular rate and rhythm, S1, S2, 2/6 systolic murmur, no rub or gallop. ABDOMEN: Soft, nontender, nondistended, normoactive bowel sounds, no guarding EXTREMITIES: 2+ pulses, warm, no edema. PSYCH: Normal mood, normal affect. SKIN: Warm, dry Laboratory Results - last 24 hr CBC,CMP WBC 6.3 K/mm3 (4.0-10.0) 03/12/19 07:40 RBC 4.11 M/mm3 (3.60-5.2) 03/12/19 07:40 Hgb 9.7 GM/dL (10.7-15.3) L 03/12/19 07:40 Hct 30.8 % (32.4-45.2) L 03/12/19 07:40 MCV 74.8 fl (80-96) L 03/12/19 07:40 MCH 23.7 pg (25.7-33.7) L 03/12/19 07:40 MCHC 31.7 g/dl (32.0-36.0) L 03/12/19 07:40 RDW 17.8 % (11.6-15.6) H 03/12/19 07:40 Plt Count 311 K/MM3 (134-434) 03/12/19 07:40 MPV 7.6 fl (7.5-11.1) 03/12/19 07:40 Absolute Neuts (auto) 4.7 K/mm3 (1.5-8.0) 03/08/19 05:20 Neutrophils % 65.3 % (42.8-82.8) 03/08/19 05:20 Lymphocytes % 22.0 % (8-40) D 03/08/19 05:20 Monocytes % 7.6 % (3.8-10.2) 03/08/19 05:20 Eosinophils % 4.4 % (0-4.5) 03/08/19 05:20 Basophils % 0.7 % (0-2.0) 03/08/19 05:20 Nucleated RBC % 0 % (0-0) 03/08/19 05:20 Platelet Estimate Normal 03/06/19 06:05 Platelet Comment Present 03/06/19 06:05 Retic Count 0.96 % (0.5-1.5) 03/03/19 16:20 Haptoglobin 172 mg/dL (34-200) 03/03/19 11:48 Sodium 140 mmol/L (136-145) 03/12/19 07:40 Potassium 4.1 mmol/L (3.5-5.1) 03/12/19 07:40 Chloride 105 mmol/L (98-107) 03/12/19 07:40 Carbon Dioxide 28 mmol/L (21-32) 03/12/19 07:40 Anion Gap 7 MMOL/L (8-16) L 03/12/19 07:40 BUN 11.6 mg/dL (7-18) 03/12/19 07:40 Creatinine 0.9 mg/dL (0.55-1.3) 03/12/19 07:40 Est GFR (CKD-EPI)AfAm 66.63 03/12/19 07:40 Est GFR (CKD-EPI)NonAf 57.49 03/12/19 07:40 POC Glucometer 133 UNITS (80-120) 03/04/19 16:47 Random Glucose 84 mg/dL (74-106) 03/12/19 07:40 Hemoglobin A1c % 5.8 % (4.2-6.3) 03/04/19 05:35 Calcium 9.0 mg/dL (8.5-10.1) 03/12/19 07:40 Phosphorus 2.8 mg/dL (2.5-4.9) 03/04/19 05:35 Magnesium 2.1 mg/dL (1.8-2.4) 03/04/19 05:35 Iron 14 ug/dL (50-175) L 03/03/19 16:20 TIBC 359 ug/dL (250-450) 03/03/19 16:20 Iron Saturation 3 % (17.5-39) L 03/03/19 16:20 Unsaturated IBC 345 ug/dL (200-275) H 03/03/19 16:20 Ferritin 6.8 ng/ml (8-388) L 03/03/19 18:03 Total Bilirubin 0.4 mg/dL (0.2-1) 03/12/19 07:40 AST 44 U/L (15-37) H 03/12/19 07:40 ALT 46 U/L (13-61) 03/12/19 07:40 Alkaline Phosphatase 49 U/L (45-117) 03/12/19 07:40 LD Total 178 U/L (84-246) 03/03/19 16:20 Creatine Kinase 56 U/L (26-192) 03/03/19 16:20 CK-MB (CK-2) < 1.0 ng/mL (0.5-3.6) 03/10/19 21:05 Troponin I < 0.02 ng/ml (0.00-0.05) 03/11/19 07:35 Total Protein 6.3 g/dl (6.4-8.2) L 03/12/19 07:40 Albumin 3.1 g/dl (3.4-5.0) L 03/12/19 07:40 Carcinoembryonic Ag 3.1 ng/mL (0.0-4.7) 03/07/19 05:50 Active Medications Current Medications Acetaminophen (Ofirmev Injection -) 1,000 mg IVPB Q6H PRN PRN Reason: PAIN Last Admin: 03/12/19 14:35 Dose: 1,000 mg Alvimopan (Entereg Capsule (Restricted) -) 12 mg PO BID [facility] Amlodipine Besylate (Norvasc -) 10 mg PO DAILY [facility] Atorvastatin Calcium (Lipitor -) 40 mg PO HS RAHUL Ezetimibe (Zetia -) 10 mg PO HS [facility] Fentanyl (Sublimaze Injection -) 50 mcg IVPUSH [id number] PRN PRN Reason: PAIN-PACU ORDER X 4 DOSES ONLY Last Admin: 03/12/19 14:45 Dose: 50 mcg Heparin Sodium (Porcine) (Heparin -) 5,000 unit SQ TID [facility] Hydromorphone HCl (Hydromorphone 10 Mg/50 Ml-Ns) 10 mg COIN PURSE ASSEMBLER COIN PURSE ASSEMBLER [facility]; Protocol Stop: 03/19/19 14:16 Last Admin: 03/12/19 14:20 Dose: 10 mg Lactated Ringer's (Lactated Ringers Solution) 1,000 ml in 1,000 mls @ 100 mls/ hr IV ASDIR [facility] Last Admin: 03/12/19 14:20 Dose: 0 mls Melatonin (Melatonin) 10 mg PO HS [facility] Naloxone HCl (Narcan -) 0.4 mg IVPUSH Q5M PRN PRN Reason: RESPIRATORY DEPRESSION Ondansetron HCl (Zofran Injection) 4 mg IVPUSH Q6H PRN PRN Reason: NAUSEA AND/OR VOMITING Last Admin: 03/12/19 14:30 Dose: 4 mg Ondansetron HCl (Zofran Injection) 4 mg IVPUSH Q6H PRN PRN Reason: NAUSEA Pantoprazole Sodium (Protonix Iv) 40 mg IVPUSH DAILY [facility] Promethazine HCl (Phenergan Injection -) 12.5 mg IVPB Q6H PRN PRN Reason: NAUSEA AND/OR VOMITING Sodium Chloride (Normal Saline -) 100 ml IV ASDIR [facility] Home Medications Medication Instructions Recorded Amlodipine Besylate [Norvasc -] 5 mg PO DAILY 09/30/14 Ezetimibe/Simvastatin [Vytorin 1 tab PO HS 09/30/14 10-20 mg Tablet] traZODone HCL [Desyrel -] 25 mg PO HS PRN #30 tablet 11/28/16 Tolterodine Tartrate LA [Detrol LA 1 tablet PO DAILY 03/04/19 -] Latanoprost 0.005% Eye Drops 1 drop HS 03/06/19 [Xalatan 0.005% Eye Drops -] Cephalexin Monohydrate [Keflex -] 500 mg PO Q12H #6 capsule 03/07/19 Docusate Sodium [Colace -] 100 mg PO BID #60 capsule 03/07/19 Ferrous Sulfate [Feosol] 325 mg PO BID #60 tablet 03/07/19 Microbiology 03/03/19 18:20 Urine - Urine Clean Catch Urine Culture - Final NO GROWTH OBTAINED ASSESSMENT/PLAN: 88 y/o F, pmh of htn, hld, glaucoma presented for syncope of a few minute duration associated with LOC and post syncopal symptoms including nausea and headaches is admitted for syncope #Syncope 2/2 to anemia 2/2 possible malignancy S/p surgery- pt doing well. Will continue to monitor Oncology- will speak to onc for future plan Hold aspirin till after resection #Iron def anemia IV protonix #HTN cont home meds- amlodipine 10 mg #HLD cont atorvastatin #DVT ppx Heparin 5000 TID FEN LR at 100, NPO Dispo: s/p surgery, NPO, dvt pxx Visit type - Emergency Visit Emergency Visit: Yes ED Registration Date: 03/03/19 Care time: The patient presented to the Emergency Department on the above date and was hospitalized for further evaluation of their emergent condition. - New Patient This patient is new to me today: Yes Date on this admission: 03/12/19 - Critical Care Critical Care patient: No - Discharge Referral Referred to [facility] Med P.C.: No ATTENDING PHYSICIAN STATEMENT I saw and evaluated the patient. I reviewed the resident's note and discussed the case with the resident. I agree with the resident's findings and plan as documented. SUBJECTIVE: OBJECTIVE: ASSESSMENT AND PLAN:
--- NOTE | 2019-03-12 19:01 | PN ---
Teaching Attending Note Name of Resident: Love Mandujano ATTENDING PHYSICIAN STATEMENT I saw and evaluated the patient. I reviewed the resident's note and discussed the case with the resident. I agree with the resident's findings and plan as documented. SUBJECTIVE: seen in PACU . denies nay pain, tiered . per RN, was in severe pain after sx and was placed on dilaudid MECHANICAL PROJECT MANAGER after fentanyl injection OBJECTIVE: NAD. CV: RRR, no MRG. Lungs: CTAB. Abd: soft, NT, ND, NL BS. Ext: No edema or erythema. 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 POD 0 - cont dilaudid MECHANICAL PROJECT MANAGER - zofran for nausea - change LR to D5NS . monitor volume status very closely 4- H/o HTN: Cont Norvasc. DVt PX: heparin SQ SCDs
[2019-03-12] MEDS: DEXTROSE 5%-NORMAL SALINE 1,000 ML IV SCH (20:03)
[2019-03-12] MEDS: ATORVASTATIN CA 40 MG TABLET (FP) PO SCH (23:34)
[2019-03-12] MEDS: MELATONIN 5 MG TABLETS PO SCH (23:34)
[2019-03-12] MEDS: EZETIMIBE 10 MG TABLET (FP) PO SCH (23:34)
[2019-03-13] MEDS: HEPARIN NA (PORCINE) 5,000 UNITS/ML 1ML VIAL SQ SCH ×3 (05:48→22:13)
[2019-03-13 06:51] LABS: BASO % 0.2 % (0-2.0); EOS % 0.2 % (0-4.5); HEMOGLOBIN 9.7 GM/dL (10.7-15.3); LYMPH % 12.1 % (8-40); MCH 23.7 pg (25.7-33.7); MCHC 31.2 g/dl (32.0-36.0); MEAN CELL VOLUME 76.1 fl (80-96); MONO % 7.1 % (3.8-10.2); NEUT % 80.4 % (42.8-82.8); PLATELET COUNT 290 K/MM3 (134-434); RBC 4.08 M/mm3 (3.60-5.2); RDW 18.6 % (11.6-15.6); WHITE BLOOD COUNT 9.5 K/mm3 (4.0-10.0)
[2019-03-13] MEDS: ONDANSETRON 4 MG/2 ML VIAL IVPUSH PRN ×2 (06:57→20:32)
[2019-03-13 07:29] LABS: BLOOD UREA NITROGEN 9.4 mg/dL (7-18); CALCIUM 8.2 mg/dL (8.5-10.1); CREATININE 0.8 mg/dL (0.55-1.3); POTASSIUM 4.2 mmol/L (3.5-5.1)
--- NOTE | 2019-03-13 07:34 | PN ---
Progress Note (short form) - Note Progress Note: Anesthesia Post Op Note Pt s/p GA w/DOCUMENT REVIEW ATTORNEY for ileo-colic resection Pt awake alert in bed Pt reports nausea no vomiting Denies purtis, meza in situ Pt reports relatively good pain control she is encouraged to use DOCUMENT REVIEW ATTORNEY button VSS continue DOCUMENT REVIEW ATTORNEY until tolerating po no apparent anesthesia complications Josué White.
--- NOTE | 2019-03-13 08:15 | PN ---
Progress Note (short form) - Note Progress Note: POD#1 Pt with nausea this am. No emesis. Having some abdominal pain today. Vital Signs Period Temp Pulse Resp BP Sys/Brown Pulse Ox Last 24 Hr 97.7 F-98.7 F 82-98 12-27 123-157/47-73 95-100 UOP-700 ml clear urine GEN: A&0x3, NAD CV: RRR Lungs: CTA b/l anteriorly ABD: abd dressing c/d/i. Incisional tenderness. Slight distended. LE: No calf tenderness or swelling noted b/l. SCDs in place. CBC, BMP 11/20/19 05:38 11/20/19 05:38 A/p: 88 yo female s/p Ileocolic resection, POD#1 Continue INSPECTOR GENERAL, added tylenol IV x 3 doses for better pain control Continue enterig OOB to chair Lopez removal in the am DVT ppx wtih Antiemetics as needed for nausea D/w Dr. Oneil
--- NOTE | 2019-03-13 08:32 | PN ---
Teaching Attending Note Name of Resident: Ángel Combs ATTENDING PHYSICIAN STATEMENT I saw and evaluated the patient. I reviewed the resident's note and discussed the case with the resident. I agree with the resident's findings and plan as documented. SUBJECTIVE: Patient is feeling better with no acute distress. Vital Signs Temperature 98.0 F 03/13/19 06:28 Pulse Rate 88 03/13/19 06:28 Respiratory Rate 18 03/13/19 06:28 Blood Pressure 147/72 03/13/19 06:28 O2 Sat by Pulse Oximetry (%) 100 03/13/19 06:00 GENERAL: The patient is awake, alert, and fully oriented, in no acute distress. HEAD: Normal with no signs of trauma. EYES: PERRL, extraocular movements intact, sclera anicteric, conjunctiva clear. ENT: Ears normal, oropharynx clear without exudates, moist mucous membranes. NECK: Trachea midline, full range of motion, supple. LUNGS: Breath sounds equal, clear to auscultation bilaterally, no wheezes, no crackles, no accessory muscle use. HEART: Regular rate and rhythm, S1, S2 without murmur, rub or gallop. ABDOMEN: abd dressing , incisional tenderness. mild distention of the abdomen. EXTREMITIES: 2+ pulses, warm, well-perfused, no edema. NEUROLOGICAL: Cranial nerves II through XII grossly intact. Normal speech, gait not observed. PSYCH: Normal mood, normal affect. SKIN: Warm, dry, normal turgor, no rashes or lesions noted CBCD WBC 9.5 K/mm3 (4.0-10.0) 03/13/19 05:38 RBC 4.08 M/mm3 (3.60-5.2) 03/13/19 05:38 Hgb 9.7 GM/dL (10.7-15.3) L 03/13/19 05:38 Hct 31.0 % (32.4-45.2) L 03/13/19 05:38 MCV 76.1 fl (80-96) L 03/13/19 05:38 MCHC 31.2 g/dl (32.0-36.0) L 03/13/19 05:38 RDW 18.6 % (11.6-15.6) H 03/13/19 05:38 Plt Count 290 K/MM3 (134-434) 03/13/19 05:38 MPV 8.0 fl (7.5-11.1) 03/13/19 05:38 CMP Sodium 139 mmol/L (136-145) 03/13/19 05:38 Potassium 4.2 mmol/L (3.5-5.1) 03/13/19 05:38 Chloride 107 mmol/L (98-107) 03/13/19 05:38 Carbon Dioxide 26 mmol/L (21-32) 03/13/19 05:38 Anion Gap 6 MMOL/L (8-16) L 03/13/19 05:38 BUN 9.4 mg/dL (7-18) 03/13/19 05:38 Creatinine 0.8 mg/dL (0.55-1.3) 03/13/19 05:38 Random Glucose 129 mg/dL (74-106) H 03/13/19 05:38 Calcium 8.2 mg/dL (8.5-10.1) L 03/13/19 05:38 Total Bilirubin 0.4 mg/dL (0.2-1) 03/12/19 07:40 AST 44 U/L (15-37) H 03/12/19 07:40 ALT 46 U/L (13-61) 03/12/19 07:40 Alkaline Phosphatase 49 U/L (45-117) 03/12/19 07:40 Total Protein 6.3 g/dl (6.4-8.2) L 03/12/19 07:40 Albumin 3.1 g/dl (3.4-5.0) L 03/12/19 07:40 CARDIAC ENZYMES Creatine Kinase 56 U/L (26-192) 03/03/19 16:20 Troponin I < 0.02 ng/ml (0.00-0.05) 03/11/19 07:35 Current Medications Generic Name Dose Route Start Last Admin Trade Name Freq PRN Reason Stop Dose Admin Acetaminophen 1,000 mg 03/13/19 08:15 Ofirmev Injection - IVPB 03/13/19 20:16 Q6H [facility] Alvimopan 12 mg 03/12/19 22:00 03/12/19 23:34 Entereg Capsule (Restricted) - PO Not Given BID [facility] Amlodipine Besylate 10 mg 03/13/19 10:00 Norvasc - PO DAILY [facility] Artificial Tears 1 drop 03/13/19 08:16 Artificial Tears OU QID PRN DRY EYES Atorvastatin Calcium 40 mg 03/12/19 22:00 03/12/19 23:34 Lipitor - PO Not Given HS [facility] Ezetimibe 10 mg 03/12/19 22:00 03/12/19 23:34 Zetia - PO Not Given HS [facility] Fentanyl 50 mcg 03/12/19 13:29 03/12/19 14:45 Sublimaze Injection - IVPUSH 50 mcg [id number] PRN Administration PAIN-PACU ORDER X 4 DOSES ONLY Heparin Sodium (Porcine) 5,000 unit 03/13/19 06:00 03/13/19 05:48 Heparin - SQ 5,000 unit TID [facility] Administration Hydromorphone HCl 10 mg 03/12/19 14:30 03/12/19 14:20 Hydromorphone 10 Mg/50 Ml-Ns TRIPOLER 03/19/19 14:16 10 mg TRIPOLER RAHUL Administration Protocol Dextrose/Sodium Chloride 1,000 mls @ 75 mls/hr 03/12/19 19:00 03/12/19 20:03 D5-Ns - IV 125 mls ASDIR [facility] Administration Latanoprost 1 drop 03/13/19 22:00 Xalatan 0.005% Eye Drops - OU HS [facility] Melatonin 10 mg 03/12/19 22:00 03/12/19 23:34 Melatonin PO Not Given HS [facility] Naloxone HCl 0.4 mg 03/12/19 14:03 Narcan - IVPUSH Q5M PRN RESPIRATORY DEPRESSION Ondansetron HCl 4 mg 03/12/19 13:51 03/13/19 06:57 Zofran Injection IVPUSH 4 mg Q6H PRN Administration NAUSEA Pantoprazole Sodium 40 mg 03/13/19 10:00 Protonix Iv IVPUSH DAILY [facility] Promethazine HCl 12.5 mg 03/12/19 15:32 Phenergan Injection - IVPB Q6H PRN NAUSEA AND/OR VOMITING Home Medications Medication Instructions Recorded Amlodipine Besylate [Norvasc -] 5 mg PO DAILY 09/30/14 Ezetimibe/Simvastatin [Vytorin 1 tab PO HS 09/30/14 10-20 mg Tablet] traZODone HCL [Desyrel -] 25 mg PO HS PRN #30 tablet 11/28/16 Tolterodine Tartrate LA [Detrol LA 1 tablet PO DAILY 03/04/19 -] Latanoprost 0.005% Eye Drops 1 drop HS 03/06/19 [Xalatan 0.005% Eye Drops -] Cephalexin Monohydrate [Keflex -] 500 mg PO Q12H #6 capsule 03/07/19 Docusate Sodium [Colace -] 100 mg PO BID #60 capsule 03/07/19 Ferrous Sulfate [Feosol] 325 mg PO BID #60 tablet 03/07/19 Colonoscopy 03/06 which revealed a ileocecal valve mass, left sided adenomatous polyp, ulcerated area colonoscopy revealing mass at the ICV. Left colon polyp removed with cold snare and area of erythema and ulceration in sigmoid colon, biopsied. Bx of ileocecal mass c/w well differentiated adenoca and left colon polyp c/w tubular adenoma and ulcerated area -cryptitis--inflammation+ iscemia CT c/a/p noncontrast --no obvious metastatic disease. ascending colon thickening CEA: nl ECHO: EJF 55-60%, mild mitral annular calcification, mild to moderate MR, trace TR, mild AR Assessment and plan: Patient is an 88yo female with Pmhx of HTN, HLP, and glaucoma who presented with syncope. #POD #1 s/p iliocolic resection due to adenocarcinoma of the colon ( iliocecal mass ) continue dilaudid TRIPOLER , zofran for nausea , continue IVF, will continue to monitor volume status very closely s/p Colonoscopy 03/06 which revealed a ileocecal valve mass, left sided adenomatous polyp, ulcerated area colonoscopy revealing mass at the ICV. Left colon polyp removed with cold snare and area of erythema and ulceration in sigmoid colon, biopsied. # Syncope: likely vasovagal # Iron deficiency anemia , due to colon cancer , iron pills at or with colace and senna , hold asa for now. # H/o HTN: Cont Norvasc. DVt PX: heparin SQ SCDs
[2019-03-13] MEDS: ACETAMINOPHEN 1000 MG/100 ML VIAL (NON FORMULARY) IVPB SCH ×3 (08:58→20:32)
[2019-03-13] MEDS: DEXTROSE 5%-NORMAL SALINE 1,000 ML IV SCH ×2 (08:58→22:12)
[2019-03-13] MEDS: ARTIFICIAL TEARS (POLYVINYL ALCOHOL) OPTH DROPS OU PRN (09:21)
[2019-03-13] MEDS: PANTOPRAZOLE SODIUM 40 MG VIAL IVPUSH SCH (10:07)
[2019-03-13] MEDS: amLODIPine BESYLATE 10 MG TABLET (FP) PO SCH (10:07)
[2019-03-13] MEDS: ALVIMOPAN 12 MG CAP PO SCH ×3 (10:07→22:13)
[2019-03-13] MEDS: PROMETHAZINE HCL 25 MG/1 ML VIAL IVPB PRN (10:08)
[2019-03-13] MEDS: HYDROmorphone *PCA* 10MG/50ML DISP.SYRIN PCA SCH (14:30)
--- NOTE | 2019-03-13 15:05 | PN ---
Physical Exam: SUBJECTIVE: Patient seen and examined Pt is s/p surgery POD1, recovering well. Pt c/o of abdominal pain, nausea and dry mucosa. Pt is asymtpomatic, afebrile, has no other c/o. Pt has not passed gas or moved her bowels. Denies f/c/v/d/sob/chest pain. OBJECTIVE: Vital Signs Period Temp Pulse Resp BP Sys/Brown Pulse Ox Last 24 Hr 97.7 F-98.7 F 82-98 12-20 123-155/47-74 97-100 GENERAL: The patient is awake, alert, and fully oriented, in no acute distress. EYES: PERRL, extraocular movements intact, sclera anicteric, ENT: Oropharynx clear without exudates, Dry mucous membranes. NECK: full range of motion, supple. LUNGS: Breath sounds equal, clear to auscultation bilaterally, no wheezes, no crackles, HEART: Regular rate and rhythm, S1, S2, 2/6 systolic murmur, no rub or gallop. ABDOMEN: POD 1, dressing intact. Tender to palpation. EXTREMITIES: 2+ pulses, warm, no edema. PSYCH: Normal mood, normal affect. SKIN: Warm, dry Laboratory Results - last 24 hr WBC 9.5 K/mm3 (4.0-10.0) 03/13/19 05:38 RBC 4.08 M/mm3 (3.60-5.2) 03/13/19 05:38 Hgb 9.7 GM/dL (10.7-15.3) L 03/13/19 05:38 Hct 31.0 % (32.4-45.2) L 03/13/19 05:38 MCV 76.1 fl (80-96) L 03/13/19 05:38 MCH 23.7 pg (25.7-33.7) L 03/13/19 05:38 MCHC 31.2 g/dl (32.0-36.0) L 03/13/19 05:38 RDW 18.6 % (11.6-15.6) H 03/13/19 05:38 Plt Count 290 K/MM3 (134-434) 03/13/19 05:38 MPV 8.0 fl (7.5-11.1) 03/13/19 05:38 Absolute Neuts (auto) 7.6 K/mm3 (1.5-8.0) 03/13/19 05:38 Neutrophils % 80.4 % (42.8-82.8) D 03/13/19 05:38 Lymphocytes % 12.1 % (8-40) D 03/13/19 05:38 Monocytes % 7.1 % (3.8-10.2) 03/13/19 05:38 Eosinophils % 0.2 % (0-4.5) D 03/13/19 05:38 Basophils % 0.2 % (0-2.0) 03/13/19 05:38 Nucleated RBC % 0 % (0-0) 03/13/19 05:38 Platelet Estimate Normal 03/06/19 06:05 Platelet Comment Present 03/06/19 06:05 Retic Count 0.96 % (0.5-1.5) 03/03/19 16:20 Haptoglobin 172 mg/dL (34-200) 03/03/19 11:48 Sodium 139 mmol/L (136-145) 03/13/19 05:38 Potassium 4.2 mmol/L (3.5-5.1) 03/13/19 05:38 Chloride 107 mmol/L (98-107) 03/13/19 05:38 Carbon Dioxide 26 mmol/L (21-32) 03/13/19 05:38 Anion Gap 6 MMOL/L (8-16) L 03/13/19 05:38 BUN 9.4 mg/dL (7-18) 03/13/19 05:38 Creatinine 0.8 mg/dL (0.55-1.3) 03/13/19 05:38 Est GFR (CKD-EPI)AfAm 76.83 03/13/19 05:38 Est GFR (CKD-EPI)NonAf 66.29 03/13/19 05:38 POC Glucometer 133 UNITS (80-120) 03/04/19 16:47 Random Glucose 129 mg/dL (74-106) H 03/13/19 05:38 Hemoglobin A1c % 5.8 % (4.2-6.3) 03/04/19 05:35 Calcium 8.2 mg/dL (8.5-10.1) L 03/13/19 05:38 Phosphorus 2.8 mg/dL (2.5-4.9) 03/04/19 05:35 Magnesium 2.1 mg/dL (1.8-2.4) 03/04/19 05:35 Iron 14 ug/dL (50-175) L 03/03/19 16:20 TIBC 359 ug/dL (250-450) 03/03/19 16:20 Iron Saturation 3 % (17.5-39) L 03/03/19 16:20 Unsaturated IBC 345 ug/dL (200-275) H 03/03/19 16:20 Ferritin 6.8 ng/ml (8-388) L 03/03/19 18:03 Total Bilirubin 0.4 mg/dL (0.2-1) 03/12/19 07:40 AST 44 U/L (15-37) H 03/12/19 07:40 ALT 46 U/L (13-61) 03/12/19 07:40 Alkaline Phosphatase 49 U/L (45-117) 03/12/19 07:40 LD Total 178 U/L (84-246) 03/03/19 16:20 Creatine Kinase 56 U/L (26-192) 03/03/19 16:20 CK-MB (CK-2) < 1.0 ng/mL (0.5-3.6) 03/10/19 21:05 Troponin I < 0.02 ng/ml (0.00-0.05) 03/11/19 07:35 Total Protein 6.3 g/dl (6.4-8.2) L 03/12/19 07:40 Albumin 3.1 g/dl (3.4-5.0) L 03/12/19 07:40 Carcinoembryonic Ag 3.1 ng/mL (0.0-4.7) 03/07/19 05:50 Active Medications Current Medications Acetaminophen (Ofirmev Injection -) 1,000 mg IVPB Q6H [facility] Stop: 03/13/19 20:16 Last Admin: 03/13/19 14:55 Dose: 1,000 mg Alvimopan (Entereg Capsule (Restricted) -) 12 mg PO BID [facility] Last Admin: 03/13/19 10:07 Dose: 12 mg Amlodipine Besylate (Norvasc -) 10 mg PO DAILY [facility] Last Admin: 03/13/19 10:07 Dose: 10 mg Artificial Tears (Artificial Tears) 1 drop OU QID PRN PRN Reason: DRY EYES Last Admin: 03/13/19 09:21 Dose: 1 drop Atorvastatin Calcium (Lipitor -) 40 mg PO HS [facility] Last Admin: 03/12/19 23:34 Dose: Not Given Ezetimibe (Zetia -) 10 mg PO HS [facility] Last Admin: 03/12/19 23:34 Dose: Not Given Heparin Sodium (Porcine) (Heparin -) 5,000 unit SQ TID [facility] Last Admin: 03/13/19 14:55 Dose: 5,000 unit Hydromorphone HCl (Hydromorphone 10 Mg/50 Ml-Ns) 10 mg SOAP PRESS FEEDER SOAP PRESS FEEDER [facility]; Protocol Stop: 03/19/19 14:16 Last Admin: 03/12/19 14:20 Dose: 10 mg Dextrose/Sodium Chloride (D5-Ns -) 1,000 mls @ 75 mls/hr IV ASDIR [facility] Last Admin: 03/13/19 08:58 Dose: 75 mls/hr Latanoprost (Xalatan 0.005% Eye Drops -) 1 drop OU HS [facility] Melatonin (Melatonin) 10 mg PO HS [facility] Last Admin: 03/12/19 23:34 Dose: Not Given Naloxone HCl (Narcan -) 0.4 mg IVPUSH Q5M PRN PRN Reason: RESPIRATORY DEPRESSION Ondansetron HCl (Zofran Injection) 4 mg IVPUSH Q6H PRN PRN Reason: NAUSEA Last Admin: 03/13/19 06:57 Dose: 4 mg Pantoprazole Sodium (Protonix Iv) 40 mg IVPUSH DAILY [facility] Last Admin: 03/13/19 10:07 Dose: 40 mg Promethazine HCl (Phenergan Injection -) 12.5 mg IVPB Q6H PRN PRN Reason: NAUSEA AND/OR VOMITING Last Admin: 03/13/19 10:08 Dose: 12.5 mg Home Medications Medication Instructions Recorded Amlodipine Besylate [Norvasc -] 5 mg PO DAILY 09/30/14 Ezetimibe/Simvastatin [Vytorin 1 tab PO HS 09/30/14 10-20 mg Tablet] traZODone HCL [Desyrel -] 25 mg PO HS PRN #30 tablet 11/28/16 Tolterodine Tartrate LA [Detrol LA 1 tablet PO DAILY 03/04/19 -] Latanoprost 0.005% Eye Drops 1 drop HS 03/06/19 [Xalatan 0.005% Eye Drops -] Cephalexin Monohydrate [Keflex -] 500 mg PO Q12H #6 capsule 03/07/19 Docusate Sodium [Colace -] 100 mg PO BID #60 capsule 03/07/19 Ferrous Sulfate [Feosol] 325 mg PO BID #60 tablet 03/07/19 Microbiology 03/03/19 18:20 Urine - Urine Clean Catch Urine Culture - Final NO GROWTH OBTAINED ASSESSMENT/PLAN: 88 y/o F, pmh of htn, hld, glaucoma presented for syncope of a few minute duration associated with LOC and post syncopal symptoms including nausea and headaches is admitted for syncope #Syncope 2/2 to anemia 2/2 possible malignancy S/p surgery POD1- pt doing well. Dilaudid SOAP PRESS FEEDER + Tylenol IV 3 doses for pain control Cont Alvimopan Lopez removed Antiemetics for nausea- promethazine Oncology- will speak to onc for future plan Hold aspirin till after resection #Iron def anemia IV protonix #HTN cont home meds- amlodipine 10 mg #HLD cont atorvastatin #DVT ppx Heparin 5000 TID FEN D5 NS at 75, NPO Dispo: s/p surgery, NPO for now, will discuss with surgery if pt can advance diet Visit type - Emergency Visit Emergency Visit: Yes ED Registration Date: 03/03/19 Care time: The patient presented to the Emergency Department on the above date and was hospitalized for further evaluation of their emergent condition. - New Patient This patient is new to me today: Yes Date on this admission: 03/14/19 - Critical Care Critical Care patient: No - Discharge Referral Referred to [facility] Med P.C.: No ATTENDING PHYSICIAN STATEMENT I saw and evaluated the patient. I reviewed the resident's note and discussed the case with the resident. I agree with the resident's findings and plan as documented. SUBJECTIVE: OBJECTIVE: ASSESSMENT AND PLAN:
[2019-03-13] MEDS ORDERED: PT OWN MED DRAWER 7, Y5N ONE (21:02)
[2019-03-13] MEDS: EZETIMIBE 10 MG TABLET (FP) PO SCH (22:13)
[2019-03-13] MEDS: ATORVASTATIN CA 40 MG TABLET (FP) PO SCH (22:13)
[2019-03-13] MEDS: LATANOPROST 0.005% OPHTH SOLN 2.5ML BOTTLE OU SCH (22:14)
[2019-03-13] MEDS: MELATONIN 5 MG TABLETS PO SCH (22:18)
[2019-03-14] MEDS: HYDROmorphone *PCA* 10MG/50ML DISP.SYRIN PCA SCH ×2 (03:56→16:27)
[2019-03-14] MEDS: HEPARIN NA (PORCINE) 5,000 UNITS/ML 1ML VIAL SQ SCH ×3 (05:47→21:41)
[2019-03-14 07:33] LABS: BASO % 0.2 % (0-2.0); EOS % 0.5 % (0-4.5); HEMATOCRIT 27.6 % (32.4-45.2); HEMOGLOBIN 8.7 GM/dL (10.7-15.3); MCHC 31.6 g/dl (32.0-36.0); MEAN CELL VOLUME 76.1 fl (80-96); MONO % 6.7 % (3.8-10.2); NEUT % 82.6 % (42.8-82.8); PLATELET COUNT 288 K/MM3 (134-434); RBC 3.62 M/mm3 (3.60-5.2); WHITE BLOOD COUNT 10.3 K/mm3 (4.0-10.0)
[2019-03-14 08:28] LABS: BLOOD UREA NITROGEN 7.4 mg/dL (7-18); CALCIUM 8.1 mg/dL (8.5-10.1); CREATININE 0.8 mg/dL (0.55-1.3); POTASSIUM 4.3 mmol/L (3.5-5.1)
[2019-03-14] MEDS: ONDANSETRON 4 MG/2 ML VIAL IVPUSH PRN (08:33)
[2019-03-14 09:05] LABS: ANISOCYTOSIS 1+; MACROCYTOSIS 0; PLATELET ESTIMATE NORMAL; ROULEAU 1+; TEAR DROP CELLS 1+
--- NOTE | 2019-03-14 09:21 | PN ---
Progress Note (short form) - Note Progress Note: Surgery POD #2 Ileocolic resection patient seen and examined at bedside c/o nausea. Patient states she is still using the CMM TECHNICIAN which is mostly controlling the pain. She has not been OOB yet. She denies any CP, SOB, Fever, or vomiting. Vital Signs Temp 98.7 F 03/14/19 06:00 Pulse 96 H 03/14/19 06:00 Resp 18 03/14/19 06:00 BP 136/61 03/14/19 06:00 Pulse Ox 100 03/14/19 02:20 Intake & Output 03/13/19 03/13/19 03/14/19 11:59 23:59 11:59 Intake Total 525 375 450 Output Total 700 30 Balance -175 345 450 Intake: IV 525 375 450 D5-Ns - 1,000 ml @ 75 mls 525 375 450 /hr IV ASDIR RAHUL Rx#: [id number] Oral 0 Output: Urine 700 30 Lopez 700 30 Other: Voiding Method Indwelling Catheter Diaper # Unmeasured Voids Void 1 1 Bowel Movement No No CBC, BMP 03/14/19 06:15 03/14/19 06:15 PE A&Ox3, NAD unlabored resp on 2L NC Abdomen: soft, ND with diffuse TTP throughout appropriate to status. Incision c/ d/i with fer insitu, surrounding tissue intact with no evidence of tracking erythema with no evidence of collection or d/c. B/L LE compartments soft, NT to palpation with +2 DP pulses. Problem List - Problems (1) Colon cancer Assessment/Plan: POD #2 colon resection doing well, no flatus yet. -continue NPO, mouth swabs -OOB with PT and assist -Up to chair for meals -daily IS - keep dressing clean and dry Evaluation and plan discussed with Dr Oneil. Code(s): C18.9 - MALIGNANT NEOPLASM OF COLON, UNSPECIFIED
[2019-03-14] MEDS ORDERED: PT OWN MED DRAWER 7, Y5N ONE ×3 (09:35→21:37)
[2019-03-14] MEDS: PANTOPRAZOLE SODIUM 40 MG VIAL IVPUSH SCH (09:46)
[2019-03-14] MEDS: ALVIMOPAN 12 MG CAP PO SCH ×2 (09:48→21:41)
[2019-03-14] MEDS: amLODIPine BESYLATE 10 MG TABLET (FP) PO SCH (09:49)
--- NOTE | 2019-03-14 12:05 | PN ---
Physical Exam: SUBJECTIVE: Patient seen and examined Pt is s/p surgery POD2, recovering well. Pt c/o of abdominal pain, nausea and dry mucosa. Pt is asymtpomatic, afebrile, has no other c/o. Pt has not passed gas or moved her bowels. Pt has pain around her surgical scar. Denies f/c/n/v/d/ sob/chest pain. OBJECTIVE: Vital Signs Period Temp Pulse Resp BP Sys/Brown Pulse Ox Last 24 Hr 97.4 F-99 F 87-100 18-18 123-143/61-69 100-100 GENERAL: The patient is awake, alert, and fully oriented, in no acute distress. EYES: PERRL, extraocular movements intact, sclera anicteric, ENT: Oropharynx clear without exudates, Dry mucous membranes. NECK: full range of motion, supple. LUNGS: Breath sounds equal, clear to auscultation bilaterally, no wheezes, no crackles, HEART: Regular rate and rhythm, S1, S2, 2/6 systolic murmur, no rub or gallop. ABDOMEN: POD 2, dressing intact. Surgical scar is intact, no signs of purulent discharge or surgical wound dehiscence. Dressing clean. Pt has mild diffuse tenderness. EXTREMITIES: 2+ pulses, warm, no edema. PSYCH: Normal mood, normal affect. SKIN: Warm, dry Laboratory Results - last 24 hr CBC,CMP WBC 10.3 K/mm3 (4.0-10.0) H 03/14/19 06:15 RBC 3.62 M/mm3 (3.60-5.2) 03/14/19 06:15 Hgb 8.7 GM/dL (10.7-15.3) L 03/14/19 06:15 Hct 27.6 % (32.4-45.2) L 03/14/19 06:15 MCV 76.1 fl (80-96) L 03/14/19 06:15 MCH 24.0 pg (25.7-33.7) L 03/14/19 06:15 MCHC 31.6 g/dl (32.0-36.0) L 03/14/19 06:15 RDW 21.0 % (11.6-15.6) H 03/14/19 06:15 Plt Count 288 K/MM3 (134-434) 03/14/19 06:15 MPV 8.0 fl (7.5-11.1) 03/14/19 06:15 Absolute Neuts (auto) 8.5 K/mm3 (1.5-8.0) H 03/14/19 06:15 Neutrophils % 82.6 % (42.8-82.8) 03/14/19 06:15 Lymphocytes % 10.0 % (8-40) 03/14/19 06:15 Monocytes % 6.7 % (3.8-10.2) 03/14/19 06:15 Eosinophils % 0.5 % (0-4.5) D 03/14/19 06:15 Basophils % 0.2 % (0-2.0) 03/14/19 06:15 Nucleated RBC % 0 % (0-0) 03/14/19 06:15 Hypochromia 1+ 03/14/19 06:15 Platelet Estimate Normal 03/14/19 06:15 Platelet Comment Present 03/06/19 06:05 Polychromasia 0 03/14/19 06:15 Poikilocytosis 1+ 03/14/19 06:15 Basophilic Stippling 1+ 03/14/19 06:15 Anisocytosis 1+ 03/14/19 06:15 Microcytosis 1+ 03/14/19 06:15 Macrocytosis 0 03/14/19 06:15 Tear Drop Cells 1+ 03/14/19 06:15 Rouleaux 1+ 03/14/19 06:15 Retic Count 0.96 % (0.5-1.5) 03/03/19 16:20 Haptoglobin 172 mg/dL (34-200) 03/03/19 11:48 Sodium 140 mmol/L (136-145) 03/14/19 06:15 Potassium 4.3 mmol/L (3.5-5.1) 03/14/19 06:15 Chloride 106 mmol/L (98-107) 03/14/19 06:15 Carbon Dioxide 29 mmol/L (21-32) 03/14/19 06:15 Anion Gap 4 MMOL/L (8-16) L 03/14/19 06:15 BUN 7.4 mg/dL (7-18) 03/14/19 06:15 Creatinine 0.8 mg/dL (0.55-1.3) 03/14/19 06:15 Est GFR (CKD-EPI)AfAm 76.83 03/14/19 06:15 Est GFR (CKD-EPI)NonAf 66.29 03/14/19 06:15 POC Glucometer 133 UNITS (80-120) 03/04/19 16:47 Random Glucose 129 mg/dL (74-106) H 03/14/19 06:15 Hemoglobin A1c % 5.8 % (4.2-6.3) 03/04/19 05:35 Calcium 8.1 mg/dL (8.5-10.1) L 03/14/19 06:15 Phosphorus 2.8 mg/dL (2.5-4.9) 03/04/19 05:35 Magnesium 2.1 mg/dL (1.8-2.4) 03/04/19 05:35 Iron 14 ug/dL (50-175) L 03/03/19 16:20 TIBC 359 ug/dL (250-450) 03/03/19 16:20 Iron Saturation 3 % (17.5-39) L 03/03/19 16:20 Unsaturated IBC 345 ug/dL (200-275) H 03/03/19 16:20 Ferritin 6.8 ng/ml (8-388) L 03/03/19 18:03 Total Bilirubin 0.4 mg/dL (0.2-1) 03/12/19 07:40 AST 44 U/L (15-37) H 03/12/19 07:40 ALT 46 U/L (13-61) 03/12/19 07:40 Alkaline Phosphatase 49 U/L (45-117) 03/12/19 07:40 LD Total 178 U/L (84-246) 03/03/19 16:20 Creatine Kinase 56 U/L (26-192) 03/03/19 16:20 CK-MB (CK-2) < 1.0 ng/mL (0.5-3.6) 03/10/19 21:05 Troponin I < 0.02 ng/ml (0.00-0.05) 03/11/19 07:35 Total Protein 6.3 g/dl (6.4-8.2) L 03/12/19 07:40 Albumin 3.1 g/dl (3.4-5.0) L 03/12/19 07:40 Carcinoembryonic Ag 3.1 ng/mL (0.0-4.7) 03/07/19 05:50 Active Medications Current Medications Alvimopan (Entereg Capsule (Restricted) -) 12 mg PO BID [facility] Last Admin: 03/14/19 09:48 Dose: 12 mg Amlodipine Besylate (Norvasc -) 10 mg PO DAILY [facility] Last Admin: 03/14/19 09:49 Dose: 10 mg Artificial Tears (Artificial Tears) 1 drop OU QID PRN PRN Reason: DRY EYES Last Admin: 03/13/19 09:21 Dose: 1 drop Atorvastatin Calcium (Lipitor -) 40 mg PO HS [facility] [place] Last Admin: 03/13/19 22:13 Dose: 40 mg Ezetimibe (Zetia -) 10 mg PO HS [facility] [place] Last Admin: 03/13/19 22:13 Dose: 10 mg Heparin Sodium (Porcine) (Heparin -) 5,000 unit SQ TID [facility] [place] Last Admin: 03/14/19 05:47 Dose: 5,000 unit Hydromorphone HCl (Hydromorphone 10 Mg/50 Ml-Ns) 10 mg COMMERCIAL BAKER HELPER COMMERCIAL BAKER HELPER [facility]; Protocol Stop: 03/19/19 14:16 Last Admin: 03/14/19 03:56 Dose: 10 mg Dextrose/Sodium Chloride (D5-Ns -) 1,000 mls @ 75 mls/hr IV ASDIR [facility] [place] Last Admin: 03/13/19 22:12 Dose: 75 mls/hr Latanoprost (Xalatan 0.005% Eye Drops -) 1 drop OU HS [facility] [place] Last Admin: 03/13/19 22:14 Dose: 1 drop Melatonin (Melatonin) 10 mg PO HS [facility] [place] Last Admin: 03/13/19 22:18 Dose: 10 mg Naloxone HCl (Narcan -) 0.4 mg IVPUSH Q5M PRN PRN Reason: RESPIRATORY DEPRESSION Ondansetron HCl (Zofran Injection) 4 mg IVPUSH Q6H PRN PRN Reason: NAUSEA Last Admin: 03/14/19 08:33 Dose: 4 mg Pantoprazole Sodium (Protonix Iv) 40 mg IVPUSH DAILY [facility] [place] Last Admin: 03/14/19 09:46 Dose: 40 mg Promethazine HCl (Phenergan Injection -) 12.5 mg IVPB Q6H PRN PRN Reason: NAUSEA AND/OR VOMITING Last Admin: 03/13/19 10:08 Dose: 12.5 mg Home Medications Medication Instructions Recorded Amlodipine Besylate [Norvasc -] 5 mg PO DAILY 09/30/14 Ezetimibe/Simvastatin [Vytorin 1 tab PO HS 09/30/14 10-20 mg Tablet] traZODone HCL [Desyrel -] 25 mg PO HS PRN #30 tablet 11/28/16 Tolterodine Tartrate LA [Detrol LA 1 tablet PO DAILY 03/04/19 -] Latanoprost 0.005% Eye Drops 1 drop HS 03/06/19 [Xalatan 0.005% Eye Drops -] Cephalexin Monohydrate [Keflex -] 500 mg PO Q12H #6 capsule 03/07/19 Docusate Sodium [Colace -] 100 mg PO BID #60 capsule 03/07/19 Ferrous Sulfate [Feosol] 325 mg PO BID #60 tablet 03/07/19 Microbiology 03/03/19 18:20 Urine - Urine Clean Catch Urine Culture - Final NO GROWTH OBTAINED ASSESSMENT/PLAN: 88 y/o F, pmh of htn, hld, glaucoma presented for syncope of a few minute duration associated with LOC and post syncopal symptoms including nausea and headaches is admitted for syncope #Syncope 2/2 to anemia 2/2 possible malignancy S/p surgery POD2- pt doing well. Dilaudid [employer] + Tylenol IV 3 doses for pain control Antiemetics for nausea- promethazine Oncology- will speak to onc for future plan Hold aspirin PT Incentive spirometry #Anemia- Hb 8.7 today r/p CBC in am monitor #HTN cont home meds- amlodipine 10 mg #HLD cont atorvastatin #DVT ppx Heparin 5000 TID FEN D5 NS at 75, NPO Dispo: s/p surgery, NPO for now, will discuss with surgery if pt can advance diet Visit type - Emergency Visit Emergency Visit: Yes ED Registration Date: 03/03/19 Care time: The patient presented to the Emergency Department on the above date and was hospitalized for further evaluation of their emergent condition. - New Patient This patient is new to me today: Yes Date on this admission: 03/15/19 - Critical Care Critical Care patient: No - Discharge Referral Referred to [facility] No ATTENDING PHYSICIAN STATEMENT I saw and evaluated the patient. I reviewed the resident's note and discussed the case with the resident. I agree with the resident's findings and plan as documented. SUBJECTIVE: OBJECTIVE: ASSESSMENT AND PLAN:
[2019-03-14] MEDS: DEXTROSE 5%-NORMAL SALINE 1,000 ML IV SCH (13:20)
[2019-03-14] MEDS: PROMETHAZINE HCL 25 MG/1 ML VIAL IVPB PRN (13:39)
--- NOTE | 2019-03-14 15:31 | PN ---
Teaching Attending Note Name of Resident: Ágnel Combs ATTENDING PHYSICIAN STATEMENT I saw and evaluated the patient. I reviewed the resident's note and discussed the case with the resident. I agree with the resident's findings and plan as documented. SUBJECTIVE: Patient has no new complains. Vital Signs Temperature 98.4 F 03/14/19 14:40 Pulse Rate 90 03/14/19 14:40 Respiratory Rate 18 03/14/19 14:40 Blood Pressure 136/63 03/14/19 14:40 O2 Sat by Pulse Oximetry (%) 99 03/14/19 09:00 GENERAL: The patient is awake, alert, and fully oriented, in no acute distress. HEAD: Normal with no signs of trauma. EYES: PERRL, extraocular movements intact, sclera anicteric, conjunctiva clear. ENT: Ears normal, oropharynx clear without exudates, moist mucous membranes. NECK: Trachea midline, full range of motion, supple. LUNGS: Breath sounds equal, clear to auscultation bilaterally, no wheezes, no crackles, no accessory muscle use. HEART: Regular rate and rhythm, S1, S2 without murmur, rub or gallop. ABDOMEN: abd dressing , incisional tenderness. mild distention of the abdomen. EXTREMITIES: 2+ pulses, warm, well-perfused, no edema. NEUROLOGICAL: Cranial nerves II through XII grossly intact. Normal speech, gait not observed. PSYCH: Normal mood, normal affect. SKIN: Warm, dry, normal turgor, no rashes or lesions noted CBCD WBC 10.3 K/mm3 (4.0-10.0) H 03/14/19 06:15 RBC 3.62 M/mm3 (3.60-5.2) 03/14/19 06:15 Hgb 8.7 GM/dL (10.7-15.3) L 03/14/19 06:15 Hct 27.6 % (32.4-45.2) L 03/14/19 06:15 MCV 76.1 fl (80-96) L 03/14/19 06:15 MCHC 31.6 g/dl (32.0-36.0) L 03/14/19 06:15 RDW 21.0 % (11.6-15.6) H 03/14/19 06:15 Plt Count 288 K/MM3 (134-434) 03/14/19 06:15 MPV 8.0 fl (7.5-11.1) 03/14/19 06:15 CMP Sodium 140 mmol/L (136-145) 03/14/19 06:15 Potassium 4.3 mmol/L (3.5-5.1) 03/14/19 06:15 Chloride 106 mmol/L (98-107) 03/14/19 06:15 Carbon Dioxide 29 mmol/L (21-32) 03/14/19 06:15 Anion Gap 4 MMOL/L (8-16) L 03/14/19 06:15 BUN 7.4 mg/dL (7-18) 03/14/19 06:15 Creatinine 0.8 mg/dL (0.55-1.3) 03/14/19 06:15 Random Glucose 129 mg/dL (74-106) H 03/14/19 06:15 Calcium 8.1 mg/dL (8.5-10.1) L 03/14/19 06:15 Total Bilirubin 0.4 mg/dL (0.2-1) 03/12/19 07:40 AST 44 U/L (15-37) H 03/12/19 07:40 ALT 46 U/L (13-61) 03/12/19 07:40 Alkaline Phosphatase 49 U/L (45-117) 03/12/19 07:40 Total Protein 6.3 g/dl (6.4-8.2) L 03/12/19 07:40 Albumin 3.1 g/dl (3.4-5.0) L 03/12/19 07:40 CARDIAC ENZYMES Creatine Kinase 56 U/L (26-192) 03/03/19 16:20 Troponin I < 0.02 ng/ml (0.00-0.05) 03/11/19 07:35 Current Medications Generic Name Dose Route Start Last Admin Trade Name Freq PRN Reason Stop Dose Admin Alvimopan 12 mg 03/12/19 22:00 03/14/19 09:48 Entereg Capsule (Restricted) - PO 12 mg BID RAHUL Administration Amlodipine Besylate 10 mg 03/13/19 10:00 03/14/19 09:49 Norvasc - PO 10 mg DAILY RAHUL Administration Artificial Tears 1 drop 03/13/19 08:16 03/13/19 09:21 Artificial Tears OU 1 drop QID PRN Administration DRY EYES Atorvastatin Calcium 40 mg 03/12/19 22:00 03/13/19 22:13 Lipitor - PO 40 mg HS RAHUL Administration Ezetimibe 10 mg 03/12/19 22:00 03/13/19 22:13 Zetia - PO 10 mg HS RAHUL Administration Heparin Sodium (Porcine) 5,000 unit 03/13/19 06:00 03/14/19 13:39 Heparin - SQ 5,000 unit TID RAHUL Administration Hydromorphone HCl 10 mg 03/12/19 14:30 03/14/19 03:56 Hydromorphone 10 Mg/50 Ml-Ns VISCOSITY INSPECTOR 03/19/19 14:16 10 mg VISCOSITY INSPECTOR RAHUL Administration Protocol Dextrose/Sodium Chloride 1,000 mls @ 75 mls/hr 03/12/19 19:00 03/14/19 13:20 D5-Ns - IV 75 mls/hr ASDIR RAHUL Administration Latanoprost 1 drop 03/13/19 22:00 03/13/19 22:14 Xalatan 0.005% Eye Drops - OU 1 drop HS RAHUL Administration Melatonin 10 mg 03/12/19 22:00 03/13/19 22:18 Melatonin PO 10 mg HS RAHUL Administration Naloxone HCl 0.4 mg 03/12/19 14:03 Narcan - IVPUSH Q5M PRN RESPIRATORY DEPRESSION Ondansetron HCl 4 mg 03/12/19 13:51 03/14/19 08:33 Zofran Injection IVPUSH 4 mg Q6H PRN Administration NAUSEA Pantoprazole Sodium 40 mg 03/13/19 10:00 03/14/19 09:46 Protonix Iv IVPUSH 40 mg DAILY RAHUL Administration Promethazine HCl 12.5 mg 03/12/19 15:32 03/14/19 13:39 Phenergan Injection - IVPB 12.5 mg Q6H PRN Administration NAUSEA AND/OR VOMITING Home Medications Medication Instructions Recorded Amlodipine Besylate [Norvasc -] 5 mg PO DAILY 09/30/14 Ezetimibe/Simvastatin [Vytorin 1 tab PO HS 09/30/14 10-20 mg Tablet] traZODone HCL [Desyrel -] 25 mg PO HS PRN #30 tablet 11/28/16 Tolterodine Tartrate LA [Detrol LA 1 tablet PO DAILY 03/04/19 -] Latanoprost 0.005% Eye Drops 1 drop HS 03/06/19 [Xalatan 0.005% Eye Drops -] Cephalexin Monohydrate [Keflex -] 500 mg PO Q12H #6 capsule 03/07/19 Docusate Sodium [Colace -] 100 mg PO BID #60 capsule 03/07/19 Ferrous Sulfate [Feosol] 325 mg PO BID #60 tablet 03/07/19 Colonoscopy 03/06 which revealed a ileocecal valve mass, left sided adenomatous polyp, ulcerated area colonoscopy revealing mass at the ICV. Left colon polyp removed with cold snare and area of erythema and ulceration in sigmoid colon, biopsied. Bx of ileocecal mass c/w well differentiated adenoca and left colon polyp c/w tubular adenoma and ulcerated area -cryptitis--inflammation+ iscemia CT c/a/p noncontrast --no obvious metastatic disease. ascending colon thickening CEA: nl ECHO: EJF 55-60%, mild mitral annular calcification, mild to moderate MR, trace TR, mild AR Assessment and plan: Patient is an 88yo female with Pmhx of HTN, HLP, and glaucoma who presented with syncope. 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 Left colon polyp removed with cold snare and area of erythema and ulceration in sigmoid colon, biopsied. further management per surgical team. # Syncope: likely vasovagal # Iron deficiency anemia , due to colon cancer s/p resection, iron pills at [place] with colace and senna , hold asa for now. # H/o HTN: Cont Norvasc. DVt PX: heparin SQ SCDs
[2019-03-14] MEDS: BENZOCAINE/MENTH/CETYLPYRD CL 1 EACH LOZENGE MM PRN (18:17)
[2019-03-14] MEDS: MELATONIN 5 MG TABLETS PO SCH (21:41)
[2019-03-14] MEDS: ATORVASTATIN CA 40 MG TABLET (FP) PO SCH (21:41)
[2019-03-14] MEDS: EZETIMIBE 10 MG TABLET (FP) PO SCH (21:41)
[2019-03-14] MEDS: LATANOPROST 0.005% OPHTH SOLN 2.5ML BOTTLE OU SCH (21:42)
[2019-03-15] MEDS: DEXTROSE 5%-NORMAL SALINE 1,000 ML IV SCH ×3 (00:59→21:04)
[2019-03-15] MEDS: HEPARIN NA (PORCINE) 5,000 UNITS/ML 1ML VIAL SQ SCH ×3 (05:20→21:03)
[2019-03-15 06:45] LABS: MCHC 31.9 g/dl (32.0-36.0); MEAN CELL VOLUME 75.4 fl (80-96); MEAN PLT VOLUME 8.1 fl (7.5-11.1); PLATELET COUNT 266 K/MM3 (134-434); RBC 3.31 M/mm3 (3.60-5.2); RDW 21.8 % (11.6-15.6); WHITE BLOOD COUNT 8.6 K/mm3 (4.0-10.0)
[2019-03-15 07:27] LABS: BLOOD UREA NITROGEN 7.6 mg/dL (7-18); CALCIUM 7.6 mg/dL (8.5-10.1); CREATININE 0.8 mg/dL (0.55-1.3); MAGNESIUM 2.1 mg/dL (1.8-2.4); POTASSIUM 3.4 mmol/L (3.5-5.1)
[2019-03-15] MEDS ORDERED: METOCLOPRAMIDE HCL INJECTION 10 MG/2 ML VIAL IVPUSH PRN (08:13)
--- NOTE | 2019-03-15 08:22 | PN ---
Progress Note (short form) - Note Progress Note: POD #3 Ileocolic resection patient seen and examined at bedside c/o nausea. Patient states she is not really using the DIRECT MAIL MANAGER. Pt denies BM or flatus. She has not been OOB yet pt states that she still feels to weak, and has refused to walk with PT. She denies any CP, SOB, Fever, or vomiting. Last Vital Signs Temp Pulse Resp BP Pulse Ox 98.2 F 93 H 20 132/60 95 03/15/19 06:29 03/15/19 06:29 03/15/19 06:29 03/15/19 06:29 03/15/19 03:56 CBC, BMP 03/15/19 05:30 03/15/19 05:30 PE: Gen: A&O X3 Resp: breathing comfortably Abd: soft, nondistended, mild diffuse tenderness, incision clean with no erythema. Ext: no edema Problem List - Problems (1) Colon cancer Assessment/Plan: Plan -will D/c DIRECT MAIL MANAGER as pt not really using and switch to PO pain meds, will also switch to reglan for nausea. -emphasized to pt the importance of ambulating to restart bowel function. -continue NPO/IVF until flatus -GI and DVT ppx Code(s): C18.9 - MALIGNANT NEOPLASM OF COLON, UNSPECIFIED
[2019-03-15] MEDS ORDERED: NAPH,MB-DB/K PH,MBDB POWDER PACKET PO ONE (08:45)
--- NOTE | 2019-03-15 08:46 | PN ---
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 Was discontinued this morning. Patient discharged from anesthesia care. Please call as if necessary.
[2019-03-15] MEDS ORDERED: PT OWN MED DRAWER 7, Y5N ONE ×6 (08:55→20:58)
[2019-03-15] MEDS: PANTOPRAZOLE SODIUM 40 MG VIAL IVPUSH SCH (10:15)
[2019-03-15] MEDS: amLODIPine BESYLATE 10 MG TABLET (FP) PO SCH (10:15)
[2019-03-15] MEDS: ONDANSETRON 4 MG/2 ML VIAL IVPUSH PRN (10:15)
[2019-03-15] MEDS: oxyCODONE HCL 5 MG TABLET PO PRN ×3 (10:19→21:03)
[2019-03-15] MEDS: ALVIMOPAN 12 MG CAP PO SCH ×2 (10:42→21:03)
--- NOTE | 2019-03-15 12:53 | OP ---
DATE OF OPERATION: 03/12/2019 PREOPERATIVE DIAGNOSIS: Carcinoma of the cecum (ileocecal valve). POSTOPERATIVE DIAGNOSIS: Carcinoma of the cecum (ileocecal valve). PROCEDURE: Ileocolic resection. SURGEON: Maximilian Oneil MD FOUR SLIDE MACHINE SETTER: ELLIS Zhao ANESTHESIA: General. OPERATIVE FINDINGS: There was a biopsy-proven carcinoma of the ileocecal valve/ cecum confined to the colon without evidence of localized or distant metastatic spread. The rest of the findings were unremarkable. DESCRIPTION OF PROCEDURE: The patient was placed on the operating room table in supine position. After the induction of general anesthesia and placement of a Lopez catheter and sequential compression devices on the patient's lower extremities, the abdomen was prepped with ChloraPrep and draped in sterile fashion. The peritoneal cavity was entered through a midline incision starting just above the umbilicus. The previously noted findings were observed. The right colon was mobilized along the White line of [place] using blunt and sharp dissection and taken up to the hepatic flexure with ligaments where the hepatocolic ligament was taken down using the LigaSure device. A point of transection of the transverse colon was identified just proximal to the left branch of the middle colic artery. The mesentery was divided there and the colon divided using a SUSIE stapling device. Proximally, a window was created in the small bowel mesentery of the ileum proximal to the cecum and the small bowel divided there as well using the SUSIE stapling device. Next, the mesentery was scored and sequentially divided using the LigaSure device. The specimen was then passed off the operative field and sent to a pathological examination. During the dissection, the duodenum was identified and intact. Next, a [id number] anastomosis was performed between the ileum and transverse colon by lining up the antimesenteric border of the colon and small bowel with 2-0 silk stay sutures. Next, the 2 corners of the small bowel and transverse colon were excised and the SUSIE stapling device placed and fired creating a [id number] anastomosis. Anastomosis showed no evidence of bleeding and was patent and then the resulting defect was closed using the TA stapling device. Hemostasis was checked for and noted to be good and then the mesenteric defect was closed with continuous 2 -0 Vicryl suture. Hemostasis was again verified and copious irrigation carried out. At this point, as per protocol, instruments, gowns, gloves, and drapes were changed and the peritoneal cavity closed using continuous 0 looped Maxon suture. Prior to this, the needle, instrument, and sponge count were verified as correct. The subcutaneous tissue was irrigated with normal saline and the skin edges reapproximated with surgical fer. Dry sterile dressings and Medipore tape were placed and the procedure terminated at this point and the patient transferred to the post anesthesia care unit in stable condition awake and alert. ESTIMATED BLOOD LOSS: 100 mL. REPLACEMENTS: 1700 mL crystalloid. URINE OUTPUT: 200 mL. I, Maximilian Oneil, was physically present in the operating room from the time the patient was placed on the operating room table until she was transferred to the post anesthesia care unit in [facility]. MD MT [id number] MTDD
[2019-03-15] MEDS ORDERED: POTASSIUM CHLORIDE TABS 20 MEQ TABLET.ER (FP) PO ONE (14:23)
--- NOTE | 2019-03-15 14:28 | PN ---
Physical Exam: SUBJECTIVE: Patient seen and examined Pt is s/p surgery POD3, recovering well. Pt is c/o abdominal pain but is very minimally using MEDICAL BILLING REPRESENTATIVE. She also c/o nausea. Pt has not passed gas or moved her bowels. Pt has pain around her surgical scar. Pt also has not walked due to weakness. Denies f/c/n/v/d/sob/chest pain. OBJECTIVE: Vital Signs Period Temp Pulse Resp BP Sys/Brown Pulse Ox Last 24 Hr 98.2 F-98.8 F 88-99 16-20 132-143/56-66 93-97 GENERAL: The patient is awake, alert, and fully oriented, in no acute distress. EYES: PERRL, extraocular movements intact, sclera anicteric, ENT: Oropharynx clear without exudates, Dry mucous membranes. LUNGS: Breath sounds equal, clear to auscultation bilaterally, no wheezes, no crackles, HEART: Regular rate and rhythm, S1, S2, 2/6 systolic murmur, no rub or gallop. ABDOMEN: POD 3, dressing intact. Surgical scar is intact, no signs of purulent discharge or surgical wound dehiscence. Dressing clean. Pt has mild diffuse tenderness. EXTREMITIES: 2+ pulses, warm, no edema. Laboratory Results - last 24 hr 03/15/19 03/15/19 05:30 05:30 WBC 8.6 RBC 3.31 L Hgb 8.0 L Hct 25.0 L MCV 75.4 L MCH 24.0 L MCHC 31.9 L RDW 21.8 H Plt Count 266 MPV 8.1 Sodium 141 Potassium 3.4 L Chloride 109 H Carbon Dioxide 29 Anion Gap 4 L BUN 7.6 Creatinine 0.8 Est GFR (CKD-EPI)AfAm 76.83 Est GFR (CKD-EPI)NonAf 66.29 Random Glucose 136 H Calcium 7.6 L Phosphorus 2.0 L Magnesium 2.1 Active Medications Current Medications Alvimopan (Entereg Capsule (Restricted) -) 12 mg PO BID [facility] Last Admin: 03/15/19 10:42 Dose: 12 mg Amlodipine Besylate (Norvasc -) 10 mg PO DAILY [facility] Last Admin: 03/15/19 10:15 Dose: 10 mg Artificial Tears (Artificial Tears) 1 drop OU QID PRN PRN Reason: DRY EYES Last Admin: 03/13/19 09:21 Dose: 1 drop Atorvastatin Calcium (Lipitor -) 40 mg PO [facility] Last Admin: 03/14/19 21:41 Dose: 40 mg Benzocaine/Menthol (Cepacol Lozenge -) 1 each MM PRN PRN PRN Reason: SORE THROAT Last Admin: 03/14/19 18:17 Dose: 1 each Ezetimibe (Zetia -) 10 mg PO [facility] Last Admin: 03/14/19 21:41 Dose: 10 mg Heparin Sodium (Porcine) (Heparin -) 5,000 unit SQ TID [facility] Last Admin: 03/15/19 14:13 Dose: 5,000 unit Dextrose/Sodium Chloride (D5-Ns -) 1,000 mls @ 75 mls/hr IV ASDIR [facility] Last Admin: 03/15/19 14:12 Dose: 75 mls/hr Latanoprost (Xalatan 0.005% Eye Drops -) 1 drop OU [facility] Last Admin: 03/14/19 21:42 Dose: 1 drop Melatonin (Melatonin) 10 mg PO [facility] Last Admin: 03/14/19 21:41 Dose: 10 mg Metoclopramide HCl (Reglan Injection -) 10 mg IVPUSH Q8H PRN PRN Reason: NAUSEA AND/OR VOMITING Naloxone HCl (Narcan -) 0.4 mg IVPUSH Q5M PRN PRN Reason: RESPIRATORY DEPRESSION Ondansetron HCl (Zofran Injection) 4 mg IVPUSH Q6H PRN PRN Reason: NAUSEA Last Admin: 03/15/19 10:15 Dose: 4 mg Oxycodone HCl (Roxicodone -) 5 mg PO Q4H PRN PRN Reason: PAIN LEVEL 1-5 Last Admin: 03/15/19 10:19 Dose: 5 mg Oxycodone HCl (Roxicodone -) 10 mg PO Q4H PRN PRN Reason: PAIN LEVEL 6-10 Pantoprazole Sodium (Protonix Iv) 40 mg IVPUSH DAILY [facility] Last Admin: 03/15/19 10:15 Dose: 40 mg Home Medications Medication Instructions Recorded Amlodipine Besylate [Norvasc -] 5 mg PO DAILY 09/30/14 Ezetimibe/Simvastatin [Vytorin 1 tab PO HS 09/30/14 10-20 mg Tablet] traZODone HCL [Desyrel -] 25 mg PO HS PRN #30 tablet 11/28/16 Tolterodine Tartrate LA [Detrol LA 1 tablet PO DAILY 03/04/19 -] Latanoprost 0.005% Eye Drops 1 drop HS 03/06/19 [Xalatan 0.005% Eye Drops -] Cephalexin Monohydrate [Keflex -] 500 mg PO Q12H #6 capsule 03/07/19 Docusate Sodium [Colace -] 100 mg PO BID #60 capsule 03/07/19 Ferrous Sulfate [Feosol] 325 mg PO BID #60 tablet 03/07/19 Microbiology 03/03/19 18:20 Urine - Urine Clean Catch Urine Culture - Final NO GROWTH OBTAINED ASSESSMENT/PLAN: #Syncope 2/2 to anemia 2/2 possible malignancy S/p surgery POD3 d/c MEDICAL BILLING REPRESENTATIVE Antiemetics for nausea- zofran and reglen Oncology- will speak to onc for future plan Hold aspirin PT Incentive spirometry #Anemia- Hb 8.0 today monitor #HTN cont home meds- amlodipine 10 mg #HLD cont atorvastatin #DVT ppx Heparin 5000 TID FEN D5 NS at 75, NPO until passing gas Dispo: NPO for now, encourage pt to ambulate Visit type - Emergency Visit Emergency Visit: Yes ED Registration Date: 03/03/19 Care time: The patient presented to the Emergency Department on the above date and was hospitalized for further evaluation of their emergent condition. - New Patient This patient is new to me today: Yes Date on this admission: 03/15/19 - Critical Care Critical Care patient: No - Discharge Referral Referred to [facility] No ATTENDING PHYSICIAN STATEMENT I saw and evaluated the patient. I reviewed the resident's note and discussed the case with the resident. I agree with the resident's findings and plan as documented. SUBJECTIVE: OBJECTIVE: ASSESSMENT AND PLAN:
[2019-03-15] MEDS: BENZOCAINE/MENTH/CETYLPYRD CL 1 EACH LOZENGE MM PRN (16:52)
--- NOTE | 2019-03-15 20:37 | PN ---
Teaching Attending Note Name of Resident: Ángel Combs ATTENDING PHYSICIAN STATEMENT I saw and evaluated the patient. I reviewed the resident's note and discussed the case with the resident. I agree with the resident's findings and plan as documented. SUBJECTIVE: Patient is feeling ok , no flatus or BM today Vital Signs Temperature 98.8 F 03/15/19 20:31 Pulse Rate 81 03/15/19 20:31 Respiratory Rate 20 03/15/19 20:31 Blood Pressure 129/56 L 03/15/19 20:31 O2 Sat by Pulse Oximetry (%) 86 L 03/15/19 20:31 GENERAL: The patient is awake, alert, and fully oriented, in no acute distress. HEAD: Normal with no signs of trauma. EYES: PERRL, extraocular movements intact, sclera anicteric, conjunctiva clear. ENT: Ears normal, oropharynx clear without exudates, moist mucous membranes. NECK: Trachea midline, full range of motion, supple. LUNGS: Breath sounds equal, clear to auscultation bilaterally, no wheezes, no crackles, no accessory muscle use. HEART: Regular rate and rhythm, S1, S2 without murmur, rub or gallop. ABDOMEN: abd dressing , incisional tenderness. mild distention of the abdomen. NO BS yet. EXTREMITIES: 2+ pulses, warm, well-perfused, no edema. NEUROLOGICAL: Cranial nerves II through XII grossly intact. Normal speech, gait not observed. PSYCH: Normal mood, normal affect. SKIN: Warm, dry, normal turgor, no rashes or lesions noted CBCD WBC 8.6 K/mm3 (4.0-10.0) 03/15/19 05:30 RBC 3.31 M/mm3 (3.60-5.2) L 03/15/19 05:30 Hgb 8.0 GM/dL (10.7-15.3) L 03/15/19 05:30 Hct 25.0 % (32.4-45.2) L 03/15/19 05:30 MCV 75.4 fl (80-96) L 03/15/19 05:30 MCHC 31.9 g/dl (32.0-36.0) L 03/15/19 05:30 RDW 21.8 % (11.6-15.6) H 03/15/19 05:30 Plt Count 266 K/MM3 (134-434) 03/15/19 05:30 MPV 8.1 fl (7.5-11.1) 03/15/19 05:30 CMP Sodium 141 mmol/L (136-145) 03/15/19 05:30 Potassium 3.4 mmol/L (3.5-5.1) L 03/15/19 05:30 Chloride 109 mmol/L (98-107) H 03/15/19 05:30 Carbon Dioxide 29 mmol/L (21-32) 03/15/19 05:30 Anion Gap 4 MMOL/L (8-16) L 03/15/19 05:30 BUN 7.6 mg/dL (7-18) 03/15/19 05:30 Creatinine 0.8 mg/dL (0.55-1.3) 03/15/19 05:30 Random Glucose 136 mg/dL (74-106) H 03/15/19 05:30 Calcium 7.6 mg/dL (8.5-10.1) L 03/15/19 05:30 Total Bilirubin 0.4 mg/dL (0.2-1) 03/12/19 07:40 AST 44 U/L (15-37) H 03/12/19 07:40 ALT 46 U/L (13-61) 03/12/19 07:40 Alkaline Phosphatase 49 U/L (45-117) 03/12/19 07:40 Total Protein 6.3 g/dl (6.4-8.2) L 03/12/19 07:40 Albumin 3.1 g/dl (3.4-5.0) L 03/12/19 07:40 CARDIAC ENZYMES Creatine Kinase 56 U/L (26-192) 03/03/19 16:20 Troponin I < 0.02 ng/ml (0.00-0.05) 03/11/19 07:35 Current Medications Generic Name Dose Route Start Last Admin Trade Name Bhakti PRN Reason Stop Dose Admin Alvimopan 12 mg 03/12/19 22:00 03/15/19 10:42 Entereg Capsule (Restricted) - PO 12 mg BID RAHUL Administration Amlodipine Besylate 10 mg 03/13/19 10:00 03/15/19 10:15 Norvasc - PO 10 mg DAILY RAHUL Administration Artificial Tears 1 drop 03/13/19 08:16 03/13/19 09:21 Artificial Tears OU 1 drop QID PRN Administration DRY EYES Atorvastatin Calcium 40 mg 03/12/19 22:00 03/14/19 21:41 Lipitor - PO 40 mg HS RAHUL Administration Benzocaine/Menthol 1 each 03/14/19 16:47 03/15/19 16:52 Cepacol Lozenge - MM 1 each PRN PRN Administration SORE THROAT Ezetimibe 10 mg 03/12/19 22:00 03/14/19 21:41 Zetia - PO 10 mg HS RAHUL Administration Heparin Sodium (Porcine) 5,000 unit 03/13/19 06:00 03/15/19 14:13 Heparin - SQ 5,000 unit TID RAHUL Administration Dextrose/Sodium Chloride 1,000 mls @ 75 mls/hr 03/12/19 19:00 03/15/19 14:12 D5-Ns - IV 75 mls/hr ASDIR RAHUL Administration Latanoprost 1 drop 03/13/19 22:00 03/14/19 21:42 Xalatan 0.005% Eye Drops - OU 1 drop HS RAHUL Administration Melatonin 10 mg 03/12/19 22:00 03/14/19 21:41 Melatonin PO 10 mg HS RAHUL Administration Metoclopramide HCl 10 mg 03/15/19 08:13 Reglan Injection - IVPUSH Q8H PRN NAUSEA AND/OR VOMITING Naloxone HCl 0.4 mg 03/12/19 14:03 Narcan - IVPUSH Q5M PRN RESPIRATORY DEPRESSION Ondansetron HCl 4 mg 03/12/19 13:51 03/15/19 10:15 Zofran Injection IVPUSH 4 mg Q6H PRN Administration NAUSEA Oxycodone HCl 5 mg 03/15/19 08:15 03/15/19 16:49 Roxicodone - PO 5 mg Q4H PRN Administration PAIN LEVEL 1-5 Oxycodone HCl 10 mg 03/15/19 08:15 Roxicodone - PO Q4H PRN PAIN LEVEL 6-10 Pantoprazole Sodium 40 mg 03/13/19 10:00 03/15/19 10:15 Protonix Iv IVPUSH 40 mg DAILY RAHUL Administration Home Medications Medication Instructions Recorded Amlodipine Besylate [Norvasc -] 5 mg PO DAILY 09/30/14 Ezetimibe/Simvastatin [Vytorin 1 tab PO HS 09/30/14 10-20 mg Tablet] traZODone HCL [Desyrel -] 25 mg PO HS PRN #30 tablet 11/28/16 Tolterodine Tartrate LA [Detrol LA 1 tablet PO DAILY 03/04/19 -] Latanoprost 0.005% Eye Drops 1 drop HS 03/06/19 [Xalatan 0.005% Eye Drops -] Cephalexin Monohydrate [Keflex -] 500 mg PO Q12H #6 capsule 03/07/19 Docusate Sodium [Colace -] 100 mg PO BID #60 capsule 03/07/19 Ferrous Sulfate [Feosol] 325 mg PO BID #60 tablet 03/07/19 Colonoscopy 03/06 which revealed a ileocecal valve mass, left sided adenomatous polyp, ulcerated area colonoscopy revealing mass at the ICV. Left colon polyp removed with cold snare and area of erythema and ulceration in sigmoid colon, biopsied. Bx of ileocecal mass c/w well differentiated adenoca and left colon polyp c/w tubular adenoma and ulcerated area -cryptitis--inflammation+ iscemia CT c/a/p noncontrast --no obvious metastatic disease. ascending colon thickening CEA: nl ECHO: EJF 55-60%, mild mitral annular calcification, mild to moderate MR, trace TR, mild AR Assessment and plan: Patient is an 88yo female with Pmhx of HTN, HLP, and glaucoma who presented with syncope. 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 Left colon polyp removed with cold snare and area of erythema and ulceration in sigmoid colon, biopsied. further management per surgical team. # Syncope: likely vasovagal # Iron deficiency anemia , due to colon cancer s/p resection, iron pills at [place] with colace and senna , hold asa for now. # H/o HTN: Cont Norvasc. DVt PX: heparin SQ SCDs
[2019-03-15] MEDS: ATORVASTATIN CA 40 MG TABLET (FP) PO SCH (21:03)
[2019-03-15] MEDS: EZETIMIBE 10 MG TABLET (FP) PO SCH (21:03)
[2019-03-15] MEDS: MELATONIN 5 MG TABLETS PO SCH (21:03)
[2019-03-15] MEDS: LATANOPROST 0.005% OPHTH SOLN 2.5ML BOTTLE OU SCH (21:04)
[2019-03-16] MEDS: oxyCODONE HCL 5 MG TABLET PO PRN ×3 (01:01→09:58)
[2019-03-16] MEDS: DEXTROSE 5%-NORMAL SALINE 1,000 ML IV SCH ×2 (05:09→20:54)
[2019-03-16] MEDS: HEPARIN NA (PORCINE) 5,000 UNITS/ML 1ML VIAL SQ SCH ×3 (05:09→21:00)
[2019-03-16 08:02] LABS: HEMATOCRIT 27.8 % (32.4-45.2); HEMOGLOBIN 8.6 GM/dL (10.7-15.3); MCH 24.1 pg (25.7-33.7); MEAN CELL VOLUME 77.6 fl (80-96); MEAN PLT VOLUME 8.5 fl (7.5-11.1); PLATELET COUNT 278 K/MM3 (134-434); RBC 3.58 M/mm3 (3.60-5.2); RDW 21.1 % (11.6-15.6); WHITE BLOOD COUNT 10.6 K/mm3 (4.0-10.0)
[2019-03-16 08:06] LABS: BLOOD UREA NITROGEN 8.5 mg/dL (7-18); CALCIUM 8.2 mg/dL (8.5-10.1); CREATININE 0.8 mg/dL (0.55-1.3); MAGNESIUM 2.2 mg/dL (1.8-2.4); PHOSPHOROUS 2.5 mg/dL (2.5-4.9)
[2019-03-16] MEDS: amLODIPine BESYLATE 10 MG TABLET (FP) PO SCH (09:58)
[2019-03-16] MEDS: PANTOPRAZOLE SODIUM 40 MG VIAL IVPUSH SCH (09:59)
[2019-03-16] MEDS: ALVIMOPAN 12 MG CAP PO SCH ×2 (10:00→21:00)
[2019-03-16] MEDS: ARTIFICIAL TEARS (POLYVINYL ALCOHOL) OPTH DROPS OU PRN (10:02)
--- NOTE | 2019-03-16 11:40 | PN ---
Progress Note (short form) - Note Progress Note: Attending Surgeon POD #4 c/o nausea; no flatus VSS AF abdo-soft; slightly distended and tympanic; wound intact: labs noted AXR reviewed IMP: stable PLAN: NPO/IVF/IV acetaminophen for pain; d/c narcotics; continue Entereg; OOB Maximilian Oneil MD FACS
--- NOTE | 2019-03-16 12:02 | PN ---
Progress Note (short form) - Note Progress Note: Patient feels nauseas today, no fever or chills, no BM and no flatus today. Vital Signs Temperature 98.2 F 03/16/19 09:50 Pulse Rate 85 03/16/19 09:50 Respiratory Rate 17 03/16/19 09:50 Blood Pressure 138/65 03/16/19 09:50 O2 Sat by Pulse Oximetry (%) 86 L 03/15/19 20:31 GENERAL: The patient is awake, alert, and fully oriented, in no acute distress. HEAD: Normal with no signs of trauma. EYES: PERRL, extraocular movements intact, sclera anicteric, conjunctiva clear. ENT: Ears normal, oropharynx clear without exudates, moist mucous membranes. NECK: Trachea midline, full range of motion, supple. LUNGS: Breath sounds equal, clear to auscultation bilaterally, no wheezes, no crackles, no accessory muscle use. HEART: Regular rate and rhythm, S1, S2 without murmur, rub or gallop. ABDOMEN: abd dressing , incisional tenderness. mild distention of the abdomen. Very minimal BS. EXTREMITIES: 2+ pulses, warm, well-perfused, no edema. NEUROLOGICAL: Cranial nerves II through XII grossly intact. Normal speech, gait not observed. PSYCH: Normal mood, normal affect. SKIN: Warm, dry, normal turgor, no rashes or lesions noted CBCD WBC 10.6 K/mm3 (4.0-10.0) H 03/16/19 06:15 RBC 3.58 M/mm3 (3.60-5.2) L 03/16/19 06:15 Hgb 8.6 GM/dL (10.7-15.3) L 03/16/19 06:15 Hct 27.8 % (32.4-45.2) L 03/16/19 06:15 MCV 77.6 fl (80-96) L 03/16/19 06:15 MCHC 31.0 g/dl (32.0-36.0) L 03/16/19 06:15 RDW 21.1 % (11.6-15.6) H 03/16/19 06:15 Plt Count 278 K/MM3 (134-434) 03/16/19 06:15 MPV 8.5 fl (7.5-11.1) 03/16/19 06:15 CMP Sodium 141 mmol/L (136-145) 03/16/19 06:15 Potassium 4.0 mmol/L (3.5-5.1) 03/16/19 06:15 Chloride 111 mmol/L (98-107) H 03/16/19 06:15 Carbon Dioxide 25 mmol/L (21-32) 03/16/19 06:15 Anion Gap 5 MMOL/L (8-16) L 03/16/19 06:15 BUN 8.5 mg/dL (7-18) 03/16/19 06:15 Creatinine 0.8 mg/dL (0.55-1.3) 03/16/19 06:15 Random Glucose 106 mg/dL (74-106) 03/16/19 06:15 Calcium 8.2 mg/dL (8.5-10.1) L 03/16/19 06:15 Total Bilirubin 0.4 mg/dL (0.2-1) 03/12/19 07:40 AST 44 U/L (15-37) H 03/12/19 07:40 ALT 46 U/L (13-61) 03/12/19 07:40 Alkaline Phosphatase 49 U/L (45-117) 03/12/19 07:40 Total Protein 6.3 g/dl (6.4-8.2) L 03/12/19 07:40 Albumin 3.1 g/dl (3.4-5.0) L 03/12/19 07:40 CARDIAC ENZYMES Creatine Kinase 56 U/L (26-192) 03/03/19 16:20 Troponin I < 0.02 ng/ml (0.00-0.05) 03/11/19 07:35 Current Medications Generic Name Dose Route Start Last Admin Trade Name Freq PRN Reason Stop Dose Admin Acetaminophen 1,000 mg 03/16/19 11:36 Ofirmev Injection - IVPB Q6H PRN PAIN LEVEL 4 - 6 Alvimopan 12 mg 03/12/19 22:00 03/16/19 10:00 Entereg Capsule (Restricted) - PO 12 mg BID RAHUL Administration Amlodipine Besylate 10 mg 03/13/19 10:00 03/16/19 09:58 Norvasc - PO 10 mg DAILY RAHUL Administration Artificial Tears 1 drop 03/13/19 08:16 11/23/19 10:02 Artificial Tears OU 1 drop QID PRN Administration DRY EYES Atorvastatin Calcium 40 mg 03/12/19 22:00 03/15/19 21:03 Lipitor - PO 40 mg HS RAHUL Administration Benzocaine/Menthol 1 each 03/14/19 16:47 03/15/19 16:52 Cepacol Lozenge - MM 1 each PRN PRN Administration SORE THROAT Ezetimibe 10 mg 03/12/19 22:00 03/15/19 21:03 Zetia - PO 10 mg HS RAHUL Administration Heparin Sodium (Porcine) 5,000 unit 03/13/19 06:00 03/16/19 05:09 Heparin - SQ 5,000 unit TID RAHUL Administration Dextrose/Sodium Chloride 1,000 mls @ 75 mls/hr 03/12/19 19:00 03/16/19 05:09 D5-Ns - IV 75 mls/hr ASDIR RAHUL Administration Latanoprost 1 drop 03/13/19 22:00 03/15/19 21:04 Xalatan 0.005% Eye Drops - OU 1 drop HS RAHUL Administration Melatonin 10 mg 03/12/19 22:00 03/15/19 21:03 Melatonin PO 10 mg HS RAHUL Administration Metoclopramide HCl 10 mg 03/15/19 08:13 03/16/19 11:19 Reglan Injection - IVPUSH 10 mg Q8H PRN Administration NAUSEA AND/OR VOMITING Naloxone HCl 0.4 mg 03/12/19 14:03 Narcan - IVPUSH Q5M PRN RESPIRATORY DEPRESSION Ondansetron HCl 4 mg 03/12/19 13:51 03/15/19 10:15 Zofran Injection IVPUSH 4 mg Q6H PRN Administration NAUSEA Pantoprazole Sodium 40 mg 03/13/19 10:00 03/16/19 09:59 Protonix Iv IVPUSH 40 mg DAILY RAHUL Administration Home Medications Medication Instructions Recorded Amlodipine Besylate [Norvasc -] 5 mg PO DAILY 09/30/14 Ezetimibe/Simvastatin [Vytorin 1 tab PO HS 09/30/14 10-20 mg Tablet] traZODone HCL [Desyrel -] 25 mg PO HS PRN #30 tablet 11/28/16 Tolterodine Tartrate LA [Detrol LA 1 tablet PO DAILY 03/04/19 -] Latanoprost 0.005% Eye Drops 1 drop HS 03/06/19 [Xalatan 0.005% Eye Drops -] Cephalexin Monohydrate [Keflex -] 500 mg PO Q12H #6 capsule 03/07/19 Docusate Sodium [Colace -] 100 mg PO BID #60 capsule 03/07/19 Ferrous Sulfate [Feosol] 325 mg PO BID #60 tablet 03/07/19 Colonoscopy 03/06 which revealed a ileocecal valve mass, left sided adenomatous polyp, ulcerated area colonoscopy revealing mass at the ICV. Left colon polyp removed with cold snare and area of erythema and ulceration in sigmoid colon, biopsied. Bx of ileocecal mass c/w well differentiated adenoca and left colon polyp c/w tubular adenoma and ulcerated area -cryptitis--inflammation+ iscemia CT c/a/p noncontrast --no obvious metastatic disease. ascending colon thickening CEA: nl ECHO: EJF 55-60%, mild mitral annular calcification, mild to moderate MR, trace TR, mild AR Assessment and plan: Patient is an 88yo female with Pmhx of HTN, HLP, and glaucoma who presented with syncope. 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 Left colon polyp removed with cold snare and area of erythema and ulceration in sigmoid colon, biopsied. further management per surgical team. continue NPO, IVF, will continue to monitor. # Syncope: likely vasovagal # Iron deficiency anemia , due to colon cancer s/p resection, iron pills [facility] with colace and senna , hold asa for now. # H/o HTN: Cont Norvasc. DVt PX: heparin SQ SCDs Visit type - Emergency Visit Emergency Visit: Yes ED Registration Date: 03/03/19 Care time: The patient presented to the Emergency Department on the above date and was hospitalized for further evaluation of their emergent condition. - New Patient This patient is new to me today: No - Critical Care Critical Care patient: No - Discharge Referral Referred to [facility] No
[2019-03-16] MEDS: BENZOCAINE/MENTH/CETYLPYRD CL 1 EACH LOZENGE MM PRN (17:56)
[2019-03-16] MEDS ORDERED: PT OWN MED DRAWER 7, Y5N ONE (20:48)
[2019-03-16] MEDS: ACETAMINOPHEN 1000 MG/100 ML VIAL (NON FORMULARY) IVPB PRN (20:54)
[2019-03-16] MEDS: LATANOPROST 0.005% OPHTH SOLN 2.5ML BOTTLE OU SCH (20:59)
[2019-03-16] MEDS: MELATONIN 5 MG TABLETS PO SCH (20:59)
[2019-03-16] MEDS: EZETIMIBE 10 MG TABLET (FP) PO SCH (21:00)
[2019-03-16] MEDS: ATORVASTATIN CA 40 MG TABLET (FP) PO SCH (21:00)
[2019-03-17] MEDS: ACETAMINOPHEN 1000 MG/100 ML VIAL (NON FORMULARY) IVPB PRN ×3 (04:26→19:40)
[2019-03-17] MEDS: HEPARIN NA (PORCINE) 5,000 UNITS/ML 1ML VIAL SQ SCH ×3 (05:39→21:49)
[2019-03-17] MEDS: PANTOPRAZOLE SODIUM 40 MG VIAL IVPUSH SCH (09:46)
[2019-03-17] MEDS: amLODIPine BESYLATE 10 MG TABLET (FP) PO SCH (09:47)
[2019-03-17] MEDS: DEXTROSE 5%-NORMAL SALINE 1,000 ML IV SCH ×2 (09:47→21:49)
[2019-03-17] MEDS: ALVIMOPAN 12 MG CAP PO SCH ×2 (10:47→21:49)
[2019-03-17] MEDS ORDERED: PT OWN MED DRAWER 7, Y5N ONE ×2 (11:21→21:41)
--- NOTE | 2019-03-17 11:44 | PN ---
Progress Note (short form) - Note Progress Note: Attending Surgeon POD #5 no nausea today; no flatus; PT in progress VSS AF abdo-soft; slightly distended and tympanic; wound intact: labs noted IMP: stable PLAN: NPO/IVF/IV acetaminophen for pain; continue Entereg; OOB Maximilian Oneil MD FACS
[2019-03-17] MEDS: BENZOCAINE/MENTH/CETYLPYRD CL 1 EACH LOZENGE MM PRN (13:12)
--- NOTE | 2019-03-17 16:26 | PN ---
Progress Note (short form) - Note Progress Note: Patient is feeling better today , with no acute distress. No flatus yet. Vital Signs Temperature 97.7 F 03/17/19 13:33 Pulse Rate 75 03/17/19 13:33 Respiratory Rate 18 03/17/19 13:33 Blood Pressure 144/67 03/17/19 13:33 O2 Sat by Pulse Oximetry (%) 91 L 03/17/19 08:35 GENERAL: The patient is awake, alert, and fully oriented, in no acute distress. HEAD: Normal with no signs of trauma. EYES: PERRL, extraocular movements intact, sclera anicteric, conjunctiva clear. ENT: Ears normal, oropharynx clear without exudates, moist mucous membranes. NECK: Trachea midline, full range of motion, supple. LUNGS: Breath sounds equal, clear to auscultation bilaterally, no wheezes, no crackles, no accessory muscle use. HEART: Regular rate and rhythm, S1, S2 positive, no rub or gallop. ABDOMEN: abd dressing , incisional tenderness. mild distention of the abdomen. positive for BS EXTREMITIES: 2+ pulses, warm, well-perfused, no edema. NEUROLOGICAL: Cranial nerves II through XII grossly intact. Normal speech, gait is stable PSYCH: Normal mood, normal affect. SKIN: Warm, dry, normal turgor, no rashes or lesions noted CBCD WBC 10.6 K/mm3 (4.0-10.0) H 03/16/19 06:15 RBC 3.58 M/mm3 (3.60-5.2) L 03/16/19 06:15 Hgb 8.6 GM/dL (10.7-15.3) L 03/16/19 06:15 Hct 27.8 % (32.4-45.2) L 03/16/19 06:15 MCV 77.6 fl (80-96) L 03/16/19 06:15 MCHC 31.0 g/dl (32.0-36.0) L 03/16/19 06:15 RDW 21.1 % (11.6-15.6) H 03/16/19 06:15 Plt Count 278 K/MM3 (134-434) 03/16/19 06:15 MPV 8.5 fl (7.5-11.1) 03/16/19 06:15 CMP Sodium 141 mmol/L (136-145) 03/16/19 06:15 Potassium 4.0 mmol/L (3.5-5.1) 03/16/19 06:15 Chloride 111 mmol/L (98-107) H 03/16/19 06:15 Carbon Dioxide 25 mmol/L (21-32) 03/16/19 06:15 Anion Gap 5 MMOL/L (8-16) L 03/16/19 06:15 BUN 8.5 mg/dL (7-18) 03/16/19 06:15 Creatinine 0.8 mg/dL (0.55-1.3) 03/16/19 06:15 Random Glucose 106 mg/dL (74-106) 03/16/19 06:15 Calcium 8.2 mg/dL (8.5-10.1) L 03/16/19 06:15 Total Bilirubin 0.4 mg/dL (0.2-1) 03/12/19 07:40 AST 44 U/L (15-37) H 03/12/19 07:40 ALT 46 U/L (13-61) 03/12/19 07:40 Alkaline Phosphatase 49 U/L (45-117) 03/12/19 07:40 Total Protein 6.3 g/dl (6.4-8.2) L 03/12/19 07:40 Albumin 3.1 g/dl (3.4-5.0) L 03/12/19 07:40 CARDIAC ENZYMES Creatine Kinase 56 U/L (26-192) 03/03/19 16:20 Troponin I < 0.02 ng/ml (0.00-0.05) 03/11/19 07:35 Current Medications Generic Name Dose Route Start Last Admin Trade Name Cristianq PRN Reason Stop Dose Admin Acetaminophen 1,000 mg 03/16/19 11:36 Ofirmev Injection - IVPB Q6H PRN PAIN LEVEL 4 - 6 Alvimopan 12 mg 03/12/19 22:00 03/16/19 10:00 Entereg Capsule (Restricted) - PO 12 mg BID RAHUL Administration Amlodipine Besylate 10 mg 03/13/19 10:00 03/16/19 09:58 Norvasc - PO 10 mg DAILY RAHUL Administration Artificial Tears 1 drop 03/13/19 08:16 03/16/19 10:02 Artificial Tears OU 1 drop QID PRN Administration DRY EYES Atorvastatin Calcium 40 mg 03/12/19 22:00 03/15/19 21:03 Lipitor - PO 40 mg HS RAHUL Administration Benzocaine/Menthol 1 each 03/14/19 16:47 03/15/19 16:52 Cepacol Lozenge - MM 1 each PRN PRN Administration SORE THROAT Ezetimibe 10 mg 03/12/19 22:00 03/15/19 21:03 Zetia - PO 10 mg HS RAHUL Administration Heparin Sodium (Porcine) 5,000 unit 03/13/19 06:00 03/16/19 05:09 Heparin - SQ 5,000 unit TID RAHUL Administration Dextrose/Sodium Chloride 1,000 mls @ 75 mls/hr 03/12/19 19:00 03/16/19 05:09 D5-Ns - IV 75 mls/hr ASDIR RAHUL Administration Latanoprost 1 drop 03/13/19 22:00 03/15/19 21:04 Xalatan 0.005% Eye Drops - OU 1 drop HS RAHUL Administration Melatonin 10 mg 03/12/19 22:00 03/15/19 21:03 Melatonin PO 10 mg HS RAHUL Administration Metoclopramide HCl 10 mg 03/15/19 08:13 03/16/19 11:19 Reglan Injection - IVPUSH 10 mg Q8H PRN Administration NAUSEA AND/OR VOMITING Naloxone HCl 0.4 mg 03/12/19 14:03 Narcan - IVPUSH Q5M PRN RESPIRATORY DEPRESSION Ondansetron HCl 4 mg 03/12/19 13:51 03/15/19 10:15 Zofran Injection IVPUSH 4 mg Q6H PRN Administration NAUSEA Pantoprazole Sodium 40 mg 03/13/19 10:00 03/16/19 09:59 Protonix Iv IVPUSH 40 mg DAILY RAHUL Administration Home Medications Medication Instructions Recorded Amlodipine Besylate [Norvasc -] 5 mg PO DAILY 09/30/14 Ezetimibe/Simvastatin [Vytorin 1 tab PO HS 09/30/14 10-20 mg Tablet] traZODone HCL [Desyrel -] 25 mg PO HS PRN #30 tablet 11/28/16 Tolterodine Tartrate LA [Detrol LA 1 tablet PO DAILY 03/04/19 -] Latanoprost 0.005% Eye Drops 1 drop HS 03/06/19 [Xalatan 0.005% Eye Drops -] Cephalexin Monohydrate [Keflex -] 500 mg PO Q12H #6 capsule 03/07/19 Docusate Sodium [Colace -] 100 mg PO BID #60 capsule 03/07/19 Ferrous Sulfate [Feosol] 325 mg PO BID #60 tablet 03/07/19 Colonoscopy 03/06 which revealed a ileocecal valve mass, left sided adenomatous polyp, ulcerated area colonoscopy revealing mass at the ICV. Left colon polyp removed with cold snare and area of erythema and ulceration in sigmoid colon, biopsied. Bx of ileocecal mass c/w well differentiated adenoca and left colon polyp c/w tubular adenoma and ulcerated area -cryptitis--inflammation+ iscemia CT c/a/p noncontrast --no obvious metastatic disease. ascending colon thickening CEA: nl ECHO: EJF 55-60%, mild mitral annular calcification, mild to moderate MR, trace TR, mild AR Assessment and plan: Patient is an 88yo female with Pmhx of HTN, HLP, and glaucoma who presented with syncope. 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 Left colon polyp removed with cold snare and area of erythema and ulceration in sigmoid colon, biopsied. further management per surgical team. continue NPO, IVF, will continue to monitor. # Syncope: likely vasovagal # Iron deficiency anemia , due to colon cancer s/p resection, iron pills [place] with colace and senna , hold asa for now. # H/o HTN: Cont Norvasc. DVt PX: heparin SQ SCDs continue NPO until patient passes flatus Visit type - Emergency Visit Emergency Visit: Yes ED Registration Date: 03/03/19 Care time: The patient presented to the Emergency Department on the above date and was hospitalized for further evaluation of their emergent condition. - New Patient This patient is new to me today: No - Critical Care Critical Care patient: No - Discharge Referral Referred to [facility] No
[2019-03-17] MEDS ORDERED: ACETAMINOPHEN 325 MG TABLET (FP) PO PRN (20:00)
[2019-03-17] MEDS: MELATONIN 5 MG TABLETS PO SCH (21:48)
[2019-03-17] MEDS: EZETIMIBE 10 MG TABLET (FP) PO SCH (21:49)
[2019-03-17] MEDS: ATORVASTATIN CA 40 MG TABLET (FP) PO SCH (21:49)
[2019-03-17] MEDS: LATANOPROST 0.005% OPHTH SOLN 2.5ML BOTTLE OU SCH (21:50)
[2019-03-17 23:04] LABS: BASO % 0.6 % (0-2.0); EOS % 2.2 % (0-4.5); HEMATOCRIT 26.8 % (32.4-45.2); HEMOGLOBIN 8.5 GM/dL (10.7-15.3); LYMPH % 16.9 % (8-40); MCH 23.9 pg (25.7-33.7); MCHC 31.6 g/dl (32.0-36.0); MEAN CELL VOLUME 75.6 fl (80-96); MEAN PLT VOLUME 7.6 fl (7.5-11.1); MONO % 5.3 % (3.8-10.2); PLATELET COUNT 359 K/MM3 (134-434); RBC 3.54 M/mm3 (3.60-5.2); RDW 21.2 % (11.6-15.6); WHITE BLOOD COUNT 8.1 K/mm3 (4.0-10.0)
[2019-03-17 23:45] LABS: ANISOCYTOSIS 2+; MACROCYTOSIS 1+; OVALOCYTE 1+; PLATELET ESTIMATE ADEQUATE
[2019-03-18] MEDS: HEPARIN NA (PORCINE) 5,000 UNITS/ML 1ML VIAL SQ SCH ×3 (05:15→21:21)
[2019-03-18 07:37] LABS: BASO % 0.9 % (0-2.0); EOS % 2.2 % (0-4.5); HEMATOCRIT 23.5 % (32.4-45.2); HEMOGLOBIN 7.7 GM/dL (10.7-15.3); LYMPH % 14.9 % (8-40); MCH 24.3 pg (25.7-33.7); MCHC 32.7 g/dl (32.0-36.0); MEAN CELL VOLUME 74.5 fl (80-96); PLATELET COUNT 380 K/MM3 (134-434); RBC 3.16 M/mm3 (3.60-5.2); RDW 20.9 % (11.6-15.6); WHITE BLOOD COUNT 7.4 K/mm3 (4.0-10.0)
[2019-03-18] MEDS ORDERED: traMADol HCL 50 MG TABLET PO PRN ×2 (07:49→16:13)
--- NOTE | 2019-03-18 07:50 | PN ---
Progress Note (short form) - Note Progress Note: POD 6, s/p Ileocolic resection for Carcinoma of cecum Pt seen and examined. Reports she is feeling much better today. Began passing flatus last night and had a large BM. Remains NPO, has been oob with PT continues to feel weak. Pain controlled with current pain regimen. Denies cp/sob , n/v/d. Last Vital Signs Temp Pulse Resp BP Pulse Ox 97.9 F 78 18 135/64 95 03/18/19 09:50 03/18/19 09:50 03/18/19 09:50 03/18/19 09:50 03/17/19 20:35 Vital Signs Temp 97.9 F 03/18/19 09:50 Pulse 78 03/18/19 09:50 Resp 18 03/18/19 09:50 BP 135/64 03/18/19 09:50 Pulse Ox 95 03/17/19 20:35 Intake & Output 03/17/19 03/17/19 03/18/19 11:59 23:59 11:59 Intake Total 525 425 525 Balance 525 425 525 Intake: IV 525 325 525 D5-Ns - 1,000 ml @ 75 mls 525 325 525 /hr IV ASDIR RAHUL Rx#: [id number] IVPB 100 Oral 0 Other: Voiding Method Diaper Incontinent Diaper # Unmeasured Voids Void 2 1 1 Bowel Movement No Yes CBC, BMP 03/18/19 06:05 03/18/19 06:05 Gen: awake, alert, nad Resp: unlabored on 2L O2 Abdo: soft, nondistended, minimal ttp at incision, dressing changed, fer, c/ d/i, no drainage or erythema noted. A/P: Pt is a 88 y/o F w/ pmhx of HTN, HLD, and glaucoma admitted 03/03 after syncope at home, found to be anemic with +guaiac, s/p colonoscopy revealing ileocecal mass + for adenocarcinoma, now POD 6, s/p Ileocolic resection for Carcinoma of cecum. afebrile, vss Large bm last night with dark and bright red bleeding noted. H/H 7.7/23.5 today from 8.5/26.8 yesterday -Clears ordered -Monitor VS -Pain control -OOB with pt -Keep dressing c/d/i d/w attending Dr Oneil
[2019-03-18 08:05] LABS: BILIRUBIN,TOTAL 0.4 mg/dL (0.2-1); CALCIUM 7.7 mg/dL (8.5-10.1); CREATININE 0.6 mg/dL (0.55-1.3); MAGNESIUM 1.7 mg/dL (1.8-2.4); PHOSPHOROUS 2.7 mg/dL (2.5-4.9); POTASSIUM 3.2 mmol/L (3.5-5.1); TOT PROT 4.9 g/dl (6.4-8.2)
[2019-03-18] MEDS ORDERED: MAGNESIUM SULF 50% (8.12 MEQ/2 ML-1 GM VIAL) IVPB ONE (09:15)
[2019-03-18] MEDS: PANTOPRAZOLE SODIUM 40 MG VIAL IVPUSH SCH (09:52)
[2019-03-18] MEDS: KCL 10 MEQ IVPB 10 MEQ/100 ML INFUS.BAG IVPB SCH ×2 (09:54→12:01)
[2019-03-18] MEDS: amLODIPine BESYLATE 10 MG TABLET (FP) PO SCH (09:54)
--- NOTE | 2019-03-18 12:06 | PN ---
Teaching Attending Note Name of Resident: Ángel Combs ATTENDING PHYSICIAN STATEMENT I saw and evaluated the patient. I reviewed the resident's note and discussed the case with the resident. I agree with the resident's findings and plan as documented. SUBJECTIVE: Patient is comfortable on a full liquid diet, s/p BM last night. OBJECTIVE: Vital Signs Temperature 97.9 F 03/18/19 09:50 Pulse Rate 78 03/18/19 09:50 Respiratory Rate 18 03/18/19 09:50 Blood Pressure 135/64 03/18/19 09:50 O2 Sat by Pulse Oximetry (%) 95 03/18/19 09:00 GENERAL: The patient is awake, alert, and fully oriented, in no acute distress. HEAD: Normal with no signs of trauma. EYES: PERRL, extraocular movements intact, sclera anicteric, conjunctiva clear. ENT: Ears normal, oropharynx clear without exudates, moist mucous membranes. NECK: Trachea midline, full range of motion, supple. LUNGS: Breath sounds equal, clear to auscultation bilaterally, no wheezes, no crackles, no accessory muscle use. HEART: Regular rate and rhythm, S1, S2 positive, no rub or gallop. ABDOMEN:+ abd dressing. mild distention of the abdomen. positive for BS EXTREMITIES: 2+ pulses, warm, well-perfused, no edema. NEUROLOGICAL: Cranial nerves II through XII grossly intact. Normal speech, gait is stable PSYCH: Normal mood, normal affect. SKIN: Warm, dry, normal turgor, no rashes or lesions noted CBCD WBC 7.4 K/mm3 (4.0-10.0) 03/18/19 06:05 RBC 3.16 M/mm3 (3.60-5.2) L 03/18/19 06:05 Hgb 7.7 GM/dL (10.7-15.3) L 03/18/19 06:05 Hct 23.5 % (32.4-45.2) L 03/18/19 06:05 MCV 74.5 fl (80-96) L 03/18/19 06:05 MCHC 32.7 g/dl (32.0-36.0) 03/18/19 06:05 RDW 20.9 % (11.6-15.6) H 03/18/19 06:05 Plt Count 380 K/MM3 (134-434) 03/18/19 06:05 MPV 8.0 fl (7.5-11.1) 03/18/19 06:05 CMP Sodium 142 mmol/L (136-145) 03/18/19 06:05 Potassium 3.2 mmol/L (3.5-5.1) L 03/18/19 06:05 Chloride 108 mmol/L (98-107) H 03/18/19 06:05 Carbon Dioxide 28 mmol/L (21-32) 03/18/19 06:05 Anion Gap 6 MMOL/L (8-16) L 03/18/19 06:05 BUN 6.0 mg/dL (7-18) L 03/18/19 06:05 Creatinine 0.6 mg/dL (0.55-1.3) 03/18/19 06:05 Random Glucose 93 mg/dL (74-106) 03/18/19 06:05 Calcium 7.7 mg/dL (8.5-10.1) L 03/18/19 06:05 Total Bilirubin 0.4 mg/dL (0.2-1) 03/18/19 06:05 AST 19 U/L (15-37) 03/18/19 06:05 ALT 19 U/L (13-61) 03/18/19 06:05 Alkaline Phosphatase 44 U/L (45-117) L 03/18/19 06:05 Total Protein 4.9 g/dl (6.4-8.2) L 03/18/19 06:05 Albumin 2.0 g/dl (3.4-5.0) L 03/18/19 06:05 CARDIAC ENZYMES Creatine Kinase 56 U/L (26-192) 03/03/19 16:20 Troponin I < 0.02 ng/ml (0.00-0.05) 03/11/19 07:35 Current Medications Generic Name Dose Route Start Last Admin Trade Name Freq PRN Reason Stop Dose Admin Acetaminophen 650 mg 03/17/19 20:00 Tylenol - PO Q6H PRN Fever Or Pain 6-10 Amlodipine Besylate 10 mg 03/13/19 10:00 03/18/19 09:54 Norvasc - PO 10 mg DAILY RAHUL Administration Artificial Tears 1 drop 03/13/19 08:16 03/16/19 10:02 Artificial Tears OU 1 drop QID PRN Administration DRY EYES Atorvastatin Calcium 40 mg 03/12/19 22:00 03/17/19 21:49 Lipitor - PO 40 mg HS RAHUL Administration Benzocaine/Menthol 1 each 03/14/19 16:47 03/17/19 13:12 Cepacol Lozenge - MM 1 each PRN PRN Administration SORE THROAT Ezetimibe 10 mg 03/12/19 22:00 03/17/19 21:49 Zetia - PO 10 mg HS RAHUL Administration Heparin Sodium (Porcine) 5,000 unit 03/13/19 06:00 03/18/19 05:15 Heparin - SQ Not Given TID RAHLU Dextrose/Sodium Chloride 1,000 mls @ 75 mls/hr 03/12/19 19:00 03/17/19 21:49 D5-Ns - IV 75 mls/hr ASDIR RAHUL Administration Latanoprost 1 drop 03/13/19 22:00 03/17/19 21:50 Xalatan 0.005% Eye Drops - OU 1 drop HS RAHUL Administration Melatonin 10 mg 03/12/19 22:00 03/17/19 21:48 Melatonin PO 10 mg HS RAHUL Administration Metoclopramide HCl 10 mg 03/15/19 08:13 03/16/19 11:19 Reglan Injection - IVPUSH 10 mg Q8H PRN Administration NAUSEA AND/OR VOMITING Ondansetron HCl 4 mg 03/12/19 13:51 03/15/19 10:15 Zofran Injection IVPUSH 4 mg Q6H PRN Administration NAUSEA Pantoprazole Sodium 40 mg 03/13/19 10:00 03/18/19 09:52 Protonix Iv IVPUSH 40 mg DAILY RAHUL Administration Tramadol HCl 50 mg 03/18/19 07:49 Ultram - PO Q4H PRN PAIN LEVEL 6-10 Hepatic Panel Total Bilirubin 0.4 mg/dL (0.2-1) 03/18/19 06:05 AST 19 U/L (15-37) 03/18/19 06:05 ALT 19 U/L (13-61) 03/18/19 06:05 Alkaline Phosphatase 44 U/L (45-117) L 03/18/19 06:05 Albumin 2.0 g/dl (3.4-5.0) L 03/18/19 06:05 Home Medications Medication Instructions Recorded Amlodipine Besylate [Norvasc -] 5 mg PO DAILY 09/30/14 Ezetimibe/Simvastatin [Vytorin 1 tab PO HS 09/30/14 10-20 mg Tablet] traZODone HCL [Desyrel -] 25 mg PO HS PRN #30 tablet 11/28/16 Tolterodine Tartrate LA [Detrol LA 1 tablet PO DAILY 03/04/19 -] Latanoprost 0.005% Eye Drops 1 drop HS 03/06/19 [Xalatan 0.005% Eye Drops -] Cephalexin Monohydrate [Keflex -] 500 mg PO Q12H #6 capsule 03/07/19 Docusate Sodium [Colace -] 100 mg PO BID #60 capsule 03/07/19 Ferrous Sulfate [Feosol] 325 mg PO BID #60 tablet 03/07/19 Colonoscopy 03/06 which revealed a ileocecal valve mass, left sided adenomatous polyp, ulcerated area colonoscopy revealing mass at the ICV. Left colon polyp removed with cold snare and area of erythema and ulceration in sigmoid colon, biopsied. Bx of ileocecal mass c/w well differentiated adenoca and left colon polyp c/w tubular adenoma and ulcerated area -cryptitis--inflammation+ iscemia CT c/a/p noncontrast --no obvious metastatic disease. ascending colon thickening CEA: nl ECHO: EJF 55-60%, mild mitral annular calcification, mild to moderate MR, trace TR, mild AR Assessment and plan: Patient is an 88yo female with Pmhx of HTN, HLP, and glaucoma who presented with syncope. 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 Left colon polyp removed with cold snare and area of erythema and ulceration in sigmoid colon, biopsied. further management per surgical team. patient is on a full liquid diet since had a large BM bloody last night as per notes. will continue to monitor. # Syncope: likely vasovagal # Iron deficiency anemia , due to colon cancer s/p resection, iron pills at [facility] with colace and senna , hold asa for now. # H/o HTN: Cont Norvasc. DVt PX: heparin SQ SCDs
[2019-03-18] MEDS ORDERED: POTASSIUM CHLORIDE TABS 20 MEQ TABLET.ER (FP) PO ONE (14:00)
[2019-03-18] MEDS: DEXTROSE 5%-NORMAL SALINE 1,000 ML IV SCH ×2 (15:22→21:19)
--- NOTE | 2019-03-18 15:49 | PN ---
Physical Exam: SUBJECTIVE: Patient seen and examined Pt is s/p surgery POD6, recovering well. Pt had a bloody bowel movement x2 overnight. No other c/o. Pt also has not walked due to weakness. Denies f/c/n/v/ d/sob/chest pain. OBJECTIVE: Vital Signs Period Temp Pulse Resp BP Sys/Brown Pulse Ox Last 24 Hr 97.3 F-99.0 F 78-83 16-20 120-145/60-64 95-95 GENERAL: The patient is awake, alert, and fully oriented, in no acute distress. EYES: PERRL, extraocular movements intact, sclera anicteric, ENT: Oropharynx clear without exudates, Dry mucous membranes. LUNGS: Breath sounds equal, clear to auscultation bilaterally, no wheezes, no crackles, HEART: Regular rate and rhythm, S1, S2, 2/6 systolic murmur, no rub or gallop. ABDOMEN: POD 6, dressing intact. Surgical scar is intact, no signs of purulent discharge or surgical wound dehiscence. Dressing clean. EXTREMITIES: 2+ pulses, warm, no edema. Laboratory Results - last 24 hr 03/17/19 03/18/19 03/18/19 22:44 06:05 06:05 WBC 8.1 7.4 RBC 3.54 L 3.16 L Hgb 8.5 L 7.7 L Hct 26.8 L 23.5 L MCV 75.6 L 74.5 L MCH 23.9 L 24.3 L MCHC 31.6 L 32.7 RDW 21.2 H 20.9 H Plt Count 359 D 380 MPV 7.6 D 8.0 Absolute Neuts (auto) 6.1 5.7 Neutrophils % 75.0 76.0 Lymphocytes % 16.9 D 14.9 Monocytes % 5.3 6.0 Eosinophils % 2.2 D 2.2 Basophils % 0.6 0.9 Nucleated RBC % 0 0 Platelet Estimate Adequate Platelet Comment Slide scanned. Polychromasia 1+ Poikilocytosis 1+ Anisocytosis 2+ Microcytosis 1+ Macrocytosis 1+ Ovalocytes 1+ Sodium 142 Potassium 3.2 L Chloride 108 H Carbon Dioxide 28 Anion Gap 6 L BUN 6.0 L Creatinine 0.6 Est GFR (CKD-EPI)AfAm 94.99 Est GFR (CKD-EPI)NonAf 81.95 Random Glucose 93 Calcium 7.7 L Phosphorus 2.7 Magnesium 1.7 L Total Bilirubin 0.4 AST 19 ALT 19 Alkaline Phosphatase 44 L Total Protein 4.9 L Albumin 2.0 L Active Medications Current Medications Acetaminophen (Tylenol -) 650 mg PO Q6H PRN PRN Reason: Fever Or Pain 6-10 Amlodipine Besylate (Norvasc -) 10 mg PO DAILY [facility] Last Admin: 03/18/19 09:54 Dose: 10 mg Artificial Tears (Artificial Tears) 1 drop OU QID PRN PRN Reason: DRY EYES Last Admin: 03/16/19 10:02 Dose: 1 drop Atorvastatin Calcium (Lipitor -) 40 mg PO HS [facility] Last Admin: 03/17/19 21:49 Dose: 40 mg Benzocaine/Menthol (Cepacol Lozenge -) 1 each MM PRN PRN PRN Reason: SORE THROAT Last Admin: 03/17/19 13:12 Dose: 1 each Ezetimibe (Zetia -) 10 mg PO HS [facility] Last Admin: 03/17/19 21:49 Dose: 10 mg Heparin Sodium (Porcine) (Heparin -) 5,000 unit SQ TID [facility] Last Admin: 03/18/19 13:42 Dose: 5,000 unit Dextrose/Sodium Chloride (D5-Ns -) 1,000 mls @ 75 mls/hr IV ASDIR [facility] Last Admin: 03/18/19 15:22 Dose: 75 mls/hr Latanoprost (Xalatan 0.005% Eye Drops -) 1 drop OU HS [facility] Last Admin: 03/17/19 21:50 Dose: 1 drop Melatonin (Melatonin) 10 mg PO HS [facility] Last Admin: 03/17/19 21:48 Dose: 10 mg Metoclopramide HCl (Reglan Injection -) 10 mg IVPUSH Q8H PRN PRN Reason: NAUSEA AND/OR VOMITING Last Admin: 03/16/19 11:19 Dose: 10 mg Ondansetron HCl (Zofran Injection) 4 mg IVPUSH Q6H PRN PRN Reason: NAUSEA Last Admin: 03/15/19 10:15 Dose: 4 mg Pantoprazole Sodium (Protonix Iv) 40 mg IVPUSH DAILY [facility] Last Admin: 03/18/19 09:52 Dose: 40 mg Tramadol HCl (Ultram -) 50 mg PO Q4H PRN PRN Reason: PAIN LEVEL 6-10 Home Medications Medication Instructions Recorded Amlodipine Besylate [Norvasc -] 5 mg PO DAILY 09/30/14 Ezetimibe/Simvastatin [Vytorin 1 tab PO HS 09/30/14 10-20 mg Tablet] traZODone HCL [Desyrel -] 25 mg PO HS PRN #30 tablet 11/28/16 Tolterodine Tartrate LA [Detrol LA 1 tablet PO DAILY 03/04/19 -] Latanoprost 0.005% Eye Drops 1 drop HS 03/06/19 [Xalatan 0.005% Eye Drops -] Cephalexin Monohydrate [Keflex -] 500 mg PO Q12H #6 capsule 03/07/19 Docusate Sodium [Colace -] 100 mg PO BID #60 capsule 03/07/19 Ferrous Sulfate [Feosol] 325 mg PO BID #60 tablet 03/07/19 Microbiology 03/03/19 18:20 Urine - Urine Clean Catch Urine Culture - Final NO GROWTH OBTAINED ASSESSMENT/PLAN: #Syncope 2/2 to anemia 2/2 possible malignancy S/p surgery POD6 Antiemetics for nausea- zofran and reglen Oncology- will speak to onc for future plan Hold aspirin PT Incentive spirometry #Hypokalemia K-dur 40 given #Anemia- Hb 7.4 today monitor #HTN cont home meds- amlodipine 10 mg #HLD cont atorvastatin #DVT ppx Heparin 5000 TID FEN D5 NS at 75, clear liquid Dispo: clear liquid diet, encourage pt to ambulate Visit type - Emergency Visit Emergency Visit: Yes ED Registration Date: 03/03/19 Care time: The patient presented to the Emergency Department on the above date and was hospitalized for further evaluation of their emergent condition. - New Patient This patient is new to me today: Yes Date on this admission: 03/19/19 - Critical Care Critical Care patient: No - Discharge Referral Referred to [facility] Med P.C.: No ATTENDING PHYSICIAN STATEMENT I saw and evaluated the patient. I reviewed the resident's note and discussed the case with the resident. I agree with the resident's findings and plan as documented. SUBJECTIVE: OBJECTIVE: ASSESSMENT AND PLAN:
--- NOTE | 2019-03-18 16:42 | PATH ---
Surgical Pathology Report Patient Name: STEPHAN SIMMONS [facility] Rec. #: [id number] /Age/Gender: 1930 (Age: 88) / F Account: [id number] Location: 4 SO PEDS/ADOL Taken: 03/12/2019 Received: 03/12/2019 Reported: 03/18/2019 Physicians: MD Jen Huitron M.D. Specimen(s) Received "ILEUM AND RIGHT COLON" Clinical History Carcinoma of cecum Final Diagnosis "ILEUM AND RIGHT COLON", ILEOCOLIC RESECTION: ADENOCARCINOMA, MODERATELY DIFFERENTIATED, WITH MUCINOUS COMPONENT, ASSOCIATED WITH TUBULAR ADENOMA. TUMOR MEASURES 3.8 X 2.5 CM (GROSS MEASUREMENT). TUMOR LOCATED AT ILEOCECAL VALVE. TUMOR INVADES THE MUSCULARIS PROPRIA. TWO (2) TUBULAR ADENOMAS AT RIGHT COLON. NO LYMPHOVASCULAR OR PERINEURAL INVASION IDENTIFIED. SURGICAL MARGINS ARE NEGATIVE. APPENDIX WITH FIBROUS OBLITERATION. TWENTY TWO LYMPH NODES NEGATIVE FOR CARCINOMA (0/22). PATHOLOGIC STAGE: pT2 pN0. SEE INVASIVE SUMMARY BELOW. Comments Colorectal Carcinoma :Surgical Pathology Cancer Case Summary (Based on AJCC TNM 8 th edition) Procedure _X_ Other (specify): Ileocolectomy Tumor Site _X_ Ileocecal valve Tumor Size Greatest dimension (centimeters): 3.8 x 2.5 cm (gross measurement). Macroscopic Tumor Perforation _X_ Not identified Histologic Type _X_ Adenocarcinoma with mucinous component Histologic Grade _X_ G2: Moderately differentiated Tumor Extension _X_ Tumor invades muscularis propria Margins _X_ All margins are uninvolved by invasive carcinoma, high-grade dysplasia, intramucosal adenocarcinoma, and adenoma Margins examined: Proximal, distal, radial/mesenteric Treatment Effect _X_ No known presurgical therapy Lymphovascular Invasion _X_ Not identified Perineural Invasion _X_ Not identified Tumor Deposits _X_ Not identified Regional Lymph Nodes Lymph Node Examination Number of Lymph Nodes Involved: 0 Number of Lymph Nodes Examined: 22 Pathologic Stage Classification (pTNM, AJCC 8th Edition) Primary Tumor (pT) _X_ pT2: Tumor invades muscularis propria Regional Lymph Nodes (pN) _X__ pN0: No regional lymph node metastasis Electronically Signed Selene Barton M.D. Gross Description Received in formalin labeled "ileum and right colon," is a 7 cm in length portion of terminal ileum with an attached 17 cm in length portion of cecum and right colon. The specimen displays 2 stapled mucosal margins and abundant attached pericolonic adipose tissue. There is a 7 cm in length vermiform appendix attached at the cecum which contains fecal material. Sectioning reveals a 3.8 x 2.5 cm nicole, polypoid mass on the ileocecal valve. The mass is 7 cm from the proximal margin of resection and 14 cm from the distal mucosal margin of resection. The mass is 3 cm from the mesenteric margin of resection. The mass invades the muscularis propia. No definitive invasion into the pericolonic adipose tissue is identified. The remaining mucosa displays two additional mucosal polyps at the proximal right colon, measuring 0.5 and 0.6 cm in greatest dimension. The polyps are 1 cm and 5 cm distal to the mass, respectively. The remaining mucosa is nicole with normal folds. Sectioning of the pericolonic adipose tissue reveals multiple lymph nodes, measuring up to 0.8 cm in greatest dimension. [employer] Representative sections are submitted in 21 cassettes as follows: 1-proximal mucosal margin of resection; 2-distal mucosal margin of resection; 3-shave of mesenteric margin of resection; 4-8-mass; 9-appendix; 10-mucosal polyps; 11-uninvolved terminal ileum; 12-uninvolved distal right colon; 13-19-two whole lymph nodes each; 20-21-three whole lymph nodes each. 03/13/2019 [facility]03/13/2019
[2019-03-18] MEDS: EZETIMIBE 10 MG TABLET (FP) PO SCH (21:21)
[2019-03-18] MEDS: ATORVASTATIN CA 40 MG TABLET (FP) PO SCH (21:21)
[2019-03-18] MEDS: MELATONIN 5 MG TABLETS PO SCH (21:21)
[2019-03-18] MEDS: LATANOPROST 0.005% OPHTH SOLN 2.5ML BOTTLE OU SCH (21:22)
[2019-03-18] MEDS: ONDANSETRON 4 MG/2 ML VIAL IVPUSH PRN (23:16)
[2019-03-19] MEDS: DEXTROSE 5%-NORMAL SALINE 1,000 ML IV SCH (04:45)
[2019-03-19] MEDS: HEPARIN NA (PORCINE) 5,000 UNITS/ML 1ML VIAL SQ SCH ×3 (06:05→21:49)
[2019-03-19 07:22] LABS: HEMATOCRIT 23.5 % (32.4-45.2); HEMOGLOBIN 7.6 GM/dL (10.7-15.3); MCH 24.6 pg (25.7-33.7); MCHC 32.5 g/dl (32.0-36.0); MEAN CELL VOLUME 75.5 fl (80-96); MEAN PLT VOLUME 7.9 fl (7.5-11.1); PLATELET COUNT 415 K/MM3 (134-434); RBC 3.11 M/mm3 (3.60-5.2); RDW 21.6 % (11.6-15.6); WHITE BLOOD COUNT 8.4 K/mm3 (4.0-10.0)
[2019-03-19 07:42] LABS: BLOOD UREA NITROGEN 6.6 mg/dL (7-18); CALCIUM 7.8 mg/dL (8.5-10.1); CREATININE 0.7 mg/dL (0.55-1.3); MAGNESIUM 1.9 mg/dL (1.8-2.4); POTASSIUM 4.3 mmol/L (3.5-5.1)
[2019-03-19] MEDS: PANTOPRAZOLE SODIUM 40 MG VIAL IVPUSH SCH (10:28)
[2019-03-19] MEDS: amLODIPine BESYLATE 10 MG TABLET (FP) PO SCH (10:28)
--- NOTE | 2019-03-19 12:36 | PN ---
Physical Exam: SUBJECTIVE: Patient seen and examined Pt is s/p surgery POD7, recovering well. Pt had a bowel movement, which the nursing techn described as "purple in color" but no noticeable blood. No other c/o. Pt also walked 35 feet as per PT. Denies f/c/n/v/d/sob/chest pain. OBJECTIVE: Vital Signs Period Temp Pulse Resp BP Sys/Brown Pulse Ox Last 24 Hr 98.0 F-99.0 F 74-83 18-18 128-147/55-63 96 GENERAL: The patient is awake, alert, and fully oriented, in no acute distress. EYES: PERRL, extraocular movements intact, sclera anicteric, ENT: Oropharynx clear without exudates, Dry mucous membranes. LUNGS: Breath sounds equal, clear to auscultation bilaterally, no wheezes, no crackles, HEART: Regular rate and rhythm, S1, S2, 2/6 systolic murmur, no rub or gallop. ABDOMEN: POD 7, dressing intact. Surgical scar is intact and healing well, no signs of purulent discharge or surgical wound dehiscence. Dressing clean. EXTREMITIES: 2+ pulses, warm, no edema. Laboratory Results - last 24 hr CBC,CMP WBC 8.4 K/mm3 (4.0-10.0) 03/19/19 05:20 RBC 3.11 M/mm3 (3.60-5.2) L 03/19/19 05:20 Hgb 7.6 GM/dL (10.7-15.3) L 03/19/19 05:20 Hct 23.5 % (32.4-45.2) L 03/19/19 05:20 MCV 75.5 fl (80-96) L 03/19/19 05:20 MCH 24.6 pg (25.7-33.7) L 03/19/19 05:20 MCHC 32.5 g/dl (32.0-36.0) 03/19/19 05:20 RDW 21.6 % (11.6-15.6) H 03/19/19 05:20 Plt Count 415 K/MM3 (134-434) 03/19/19 05:20 MPV 7.9 fl (7.5-11.1) 03/19/19 05:20 Absolute Neuts (auto) 5.7 K/mm3 (1.5-8.0) 03/18/19 06:05 Neutrophils % 76.0 % (42.8-82.8) 03/18/19 06:05 Lymphocytes % 14.9 % (8-40) 03/18/19 06:05 Monocytes % 6.0 % (3.8-10.2) 03/18/19 06:05 Eosinophils % 2.2 % (0-4.5) 03/18/19 06:05 Basophils % 0.9 % (0-2.0) 03/18/19 06:05 Nucleated RBC % 0 % (0-0) 03/18/19 06:05 Hypochromia 1+ 03/14/19 06:15 Platelet Estimate Adequate 03/17/19 22:44 Platelet Comment Slide scanned. 03/17/19 22:44 Polychromasia 1+ 03/17/19 22:44 Poikilocytosis 1+ 03/17/19 22:44 Basophilic Stippling 1+ 03/14/19 06:15 Anisocytosis 2+ 03/17/19 22:44 Microcytosis 1+ 03/17/19 22:44 Macrocytosis 1+ 03/17/19 22:44 Tear Drop Cells 1+ 03/14/19 06:15 Ovalocytes 1+ 03/17/19 22:44 Rouleaux 1+ 03/14/19 06:15 Retic Count 0.96 % (0.5-1.5) 03/03/19 16:20 Haptoglobin 172 mg/dL (34-200) 03/03/19 11:48 Sodium 141 mmol/L (136-145) 03/19/19 05:20 Potassium 4.3 mmol/L (3.5-5.1) 03/19/19 05:20 Chloride 109 mmol/L (98-107) H 03/19/19 05:20 Carbon Dioxide 29 mmol/L (21-32) 03/19/19 05:20 Anion Gap 3 MMOL/L (8-16) L 03/19/19 05:20 BUN 6.6 mg/dL (7-18) L 03/19/19 05:20 Creatinine 0.7 mg/dL (0.55-1.3) 03/19/19 05:20 Est GFR (CKD-EPI)AfAm 90.29 03/19/19 05:20 Est GFR (CKD-EPI)NonAf 77.90 03/19/19 05:20 POC Glucometer 133 UNITS (80-120) 03/04/19 16:47 Random Glucose 100 mg/dL (74-106) 03/19/19 05:20 Hemoglobin A1c % 5.8 % (4.2-6.3) 03/04/19 05:35 Calcium 7.8 mg/dL (8.5-10.1) L 03/19/19 05:20 Phosphorus 2.7 mg/dL (2.5-4.9) 03/18/19 06:05 Magnesium 1.9 mg/dL (1.8-2.4) 03/19/19 05:20 Iron 14 ug/dL (50-175) L 03/03/19 16:20 TIBC 359 ug/dL (250-450) 03/03/19 16:20 Iron Saturation 3 % (17.5-39) L 03/03/19 16:20 Unsaturated IBC 345 ug/dL (200-275) H 03/03/19 16:20 Ferritin 6.8 ng/ml (8-388) L 03/03/19 18:03 Total Bilirubin 0.4 mg/dL (0.2-1) 03/18/19 06:05 AST 19 U/L (15-37) 03/18/19 06:05 ALT 19 U/L (13-61) 03/18/19 06:05 Alkaline Phosphatase 44 U/L (45-117) L 03/18/19 06:05 LD Total 178 U/L (84-246) 03/03/19 16:20 Creatine Kinase 56 U/L (26-192) 03/03/19 16:20 CK-MB (CK-2) < 1.0 ng/mL (0.5-3.6) 03/10/19 21:05 Troponin I < 0.02 ng/ml (0.00-0.05) 03/11/19 07:35 Total Protein 4.9 g/dl (6.4-8.2) L 03/18/19 06:05 Albumin 2.0 g/dl (3.4-5.0) L 03/18/19 06:05 Carcinoembryonic Ag 3.1 ng/mL (0.0-4.7) 03/07/19 05:50 Active Medications Current Medications Acetaminophen (Tylenol -) 650 mg PO Q6H PRN PRN Reason: Fever Or Pain 6-10 Amlodipine Besylate (Norvasc -) 10 mg PO DAILY [facility] Last Admin: 03/19/19 10:28 Dose: 10 mg Artificial Tears (Artificial Tears) 1 drop OU QID PRN PRN Reason: DRY EYES Last Admin: 03/16/19 10:02 Dose: 1 drop Atorvastatin Calcium (Lipitor -) 40 mg PO HS [facility] Last Admin: 03/18/19 21:21 Dose: 40 mg Benzocaine/Menthol (Cepacol Lozenge -) 1 each MM PRN PRN PRN Reason: SORE THROAT Last Admin: 03/17/19 13:12 Dose: 1 each Ezetimibe (Zetia -) 10 mg PO HS [facility] Last Admin: 03/18/19 21:21 Dose: 10 mg Heparin Sodium (Porcine) (Heparin -) 5,000 unit SQ TID [facility] Last Admin: 03/19/19 06:05 Dose: 5,000 unit Latanoprost (Xalatan 0.005% Eye Drops -) 1 drop OU [facility] Last Admin: 03/18/19 21:22 Dose: 1 drop Melatonin (Melatonin) 10 mg PO HS [facility] Last Admin: 03/18/19 21:21 Dose: 10 mg Metoclopramide HCl (Reglan Injection -) 10 mg IVPUSH Q8H PRN PRN Reason: NAUSEA AND/OR VOMITING Last Admin: 03/16/19 11:19 Dose: 10 mg Ondansetron HCl (Zofran Injection) 4 mg IVPUSH Q6H PRN PRN Reason: NAUSEA Last Admin: 03/18/19 23:16 Dose: 4 mg Pantoprazole Sodium (Protonix Iv) 40 mg IVPUSH DAILY [facility] Last Admin: 03/19/19 10:28 Dose: 40 mg Tramadol HCl (Ultram -) 25 mg PO Q6H PRN PRN Reason: PAIN LEVEL 6-10 Home Medications Medication Instructions Recorded Amlodipine Besylate [Norvasc -] 5 mg PO DAILY 09/30/14 Ezetimibe/Simvastatin [Vytorin 1 tab PO HS 09/30/14 10-20 mg Tablet] traZODone HCL [Desyrel -] 25 mg PO HS PRN #30 tablet 11/28/16 Tolterodine Tartrate LA [Detrol LA 1 tablet PO DAILY 03/04/19 -] Latanoprost 0.005% Eye Drops 1 drop HS 03/06/19 [Xalatan 0.005% Eye Drops -] Cephalexin Monohydrate [Keflex -] 500 mg PO Q12H #6 capsule 03/07/19 Docusate Sodium [Colace -] 100 mg PO BID #60 capsule 03/07/19 Ferrous Sulfate [Feosol] 325 mg PO BID #60 tablet 03/07/19 Microbiology 03/03/19 18:20 Urine - Urine Clean Catch Urine Culture - Final NO GROWTH OBTAINED ASSESSMENT/PLAN: #Syncope 2/2 to anemia 2/2 possible malignancy S/p surgery POD7 Antiemetics for nausea- zofran and reglen Oncology- will speak to onc for future plan Hold aspirin- will consider restarting PT to help ambulate Incentive spirometry Spoke to surgery, they will clear pt for discharge by tomorrow Pt is still not cleared from medicine side yet #Hypokalemia K-dur 40 given #Anemia- Hb 7.6 today monitor #HTN cont home meds- amlodipine 10 mg #HLD cont atorvastatin #DVT ppx Heparin 5000 TID FEN Soft diet Dispo: soft diet, encourage pt to ambulate Visit type - Emergency Visit Emergency Visit: Yes ED Registration Date: 03/03/19 Care time: The patient presented to the Emergency Department on the above date and was hospitalized for further evaluation of their emergent condition. - New Patient This patient is new to me today: Yes Date on this admission: 03/20/19 - Critical Care Critical Care patient: No - Discharge Referral Referred to [facility] Med P.C.: No ATTENDING PHYSICIAN STATEMENT I saw and evaluated the patient. I reviewed the resident's note and discussed the case with the resident. I agree with the resident's findings and plan as documented. SUBJECTIVE: OBJECTIVE: ASSESSMENT AND PLAN:
--- NOTE | 2019-03-19 13:45 | PN ---
Teaching Attending Note Name of Resident: Ángel Combs ATTENDING PHYSICIAN STATEMENT I saw and evaluated the patient. I reviewed the resident's note and discussed the case with the resident. I agree with the resident's findings and plan as documented. SUBJECTIVE: Patient is a 88yo female, comfortable today with no acute distress, had 3 bms already, tolerating full liquid diet, will advance her diet. Vital Signs Temperature 98.8 F 03/19/19 08:59 Pulse Rate 77 03/19/19 08:59 Respiratory Rate 18 03/19/19 08:59 Blood Pressure 147/63 03/19/19 08:59 O2 Sat by Pulse Oximetry (%) 96 03/18/19 21:00 GENERAL: The patient is awake, alert, and fully oriented, in no acute distress. HEAD: Normal with no signs of trauma. EYES: PERRL, extraocular movements intact, sclera anicteric, conjunctiva clear. ENT: Ears normal, oropharynx clear without exudates, moist mucous membranes. NECK: Trachea midline, full range of motion, supple. LUNGS: Breath sounds equal, clear to auscultation bilaterally, no wheezes, no crackles, no accessory muscle use. HEART: Regular rate and rhythm, S1, S2 positive, no rub or gallop. ABDOMEN:+ abd dressing. mild distention of the abdomen. positive for BS EXTREMITIES: 2+ pulses, warm, well-perfused, no edema. NEUROLOGICAL: Cranial nerves II through XII grossly intact. Normal speech, gait is stable PSYCH: Normal mood, normal affect. SKIN: Warm, dry, normal turgor, no rashes or lesions noted CBCD WBC 7.4 K/mm3 (4.0-10.0) 03/18/19 06:05 RBC 3.16 M/mm3 (3.60-5.2) L 03/18/19 06:05 Hgb 7.7 GM/dL (10.7-15.3) L 03/18/19 06:05 Hct 23.5 % (32.4-45.2) L 03/18/19 06:05 MCV 74.5 fl (80-96) L 03/18/19 06:05 MCHC 32.7 g/dl (32.0-36.0) 03/18/19 06:05 RDW 20.9 % (11.6-15.6) H 03/18/19 06:05 Plt Count 380 K/MM3 (134-434) 03/18/19 06:05 MPV 8.0 fl (7.5-11.1) 03/18/19 06:05 CMP Sodium 142 mmol/L (136-145) 03/18/19 06:05 Potassium 3.2 mmol/L (3.5-5.1) L 03/18/19 06:05 Chloride 108 mmol/L (98-107) H 03/18/19 06:05 Carbon Dioxide 28 mmol/L (21-32) 03/18/19 06:05 Anion Gap 6 MMOL/L (8-16) L 03/18/19 06:05 BUN 6.0 mg/dL (7-18) L 03/18/19 06:05 Creatinine 0.6 mg/dL (0.55-1.3) 03/18/19 06:05 Random Glucose 93 mg/dL (74-106) 03/18/19 06:05 Calcium 7.7 mg/dL (8.5-10.1) L 03/18/19 06:05 Total Bilirubin 0.4 mg/dL (0.2-1) 03/18/19 06:05 AST 19 U/L (15-37) 03/18/19 06:05 ALT 19 U/L (13-61) 03/18/19 06:05 Alkaline Phosphatase 44 U/L (45-117) L 03/18/19 06:05 Total Protein 4.9 g/dl (6.4-8.2) L 03/18/19 06:05 Albumin 2.0 g/dl (3.4-5.0) L 03/18/19 06:05 CARDIAC ENZYMES Creatine Kinase 56 U/L (26-192) 03/03/19 16:20 Troponin I < 0.02 ng/ml (0.00-0.05) 03/11/19 07:35 Current Medications Generic Name Dose Route Start Last Admin Trade Name Freq PRN Reason Stop Dose Admin Acetaminophen 650 mg 03/17/19 20:00 Tylenol - PO Q6H PRN Fever Or Pain 6-10 Amlodipine Besylate 10 mg 03/13/19 10:00 03/18/19 09:54 Norvasc - PO 10 mg DAILY [facility] Administration Artificial Tears 1 drop 03/13/19 08:16 11/23/19 10:02 Artificial Tears OU 1 drop QID PRN Administration DRY EYES Atorvastatin Calcium 40 mg 03/12/19 22:00 03/17/19 21:49 Lipitor - PO 40 mg HS [facility] Administration Benzocaine/Menthol 1 each 03/14/19 16:47 03/17/19 13:12 Cepacol Lozenge - MM 1 each PRN PRN Administration SORE THROAT Ezetimibe 10 mg 03/12/19 22:00 03/17/19 21:49 Zetia - PO 10 mg HS [facility] Administration Heparin Sodium (Porcine) 5,000 unit 03/13/19 06:00 03/18/19 05:15 Heparin - SQ Not Given TID [facility] Dextrose/Sodium Chloride 1,000 mls @ 75 mls/hr 03/12/19 19:00 03/17/19 21:49 D5-Ns - IV 75 mls/hr ASDIR [facility] Administration Latanoprost 1 drop 03/13/19 22:00 03/17/19 21:50 Xalatan 0.005% Eye Drops - OU 1 drop HS [facility] Administration Melatonin 10 mg 03/12/19 22:00 03/17/19 21:48 Melatonin PO 10 mg HS [facility] Administration Metoclopramide HCl 10 mg 03/15/19 08:13 03/16/19 11:19 Reglan Injection - IVPUSH 10 mg Q8H PRN Administration NAUSEA AND/OR VOMITING Ondansetron HCl 4 mg 03/12/19 13:51 03/15/19 10:15 Zofran Injection IVPUSH 4 mg Q6H PRN Administration NAUSEA Pantoprazole Sodium 40 mg 03/13/19 10:00 03/18/19 09:52 Protonix Iv IVPUSH 40 mg DAILY [facility] Administration Tramadol HCl 50 mg 03/18/19 07:49 Ultram - PO Q4H PRN PAIN LEVEL 6-10 Hepatic Panel Total Bilirubin 0.4 mg/dL (0.2-1) 03/18/19 06:05 AST 19 U/L (15-37) 03/18/19 06:05 ALT 19 U/L (13-61) 03/18/19 06:05 Alkaline Phosphatase 44 U/L (45-117) L 03/18/19 06:05 Albumin 2.0 g/dl (3.4-5.0) L 03/18/19 06:05 Home Medications Medication Instructions Recorded Amlodipine Besylate [Norvasc -] 5 mg PO DAILY 09/30/14 Ezetimibe/Simvastatin [Vytorin 1 tab PO HS 09/30/14 10-20 mg Tablet] traZODone HCL [Desyrel -] 25 mg PO HS PRN #30 tablet 11/28/16 Tolterodine Tartrate LA [Detrol LA 1 tablet PO DAILY 03/04/19 -] Latanoprost 0.005% Eye Drops 1 drop HS 03/06/19 [Xalatan 0.005% Eye Drops -] Cephalexin Monohydrate [Keflex -] 500 mg PO Q12H #6 capsule 03/07/19 Docusate Sodium [Colace -] 100 mg PO BID #60 capsule 03/07/19 Ferrous Sulfate [Feosol] 325 mg PO BID #60 tablet 03/07/19 Colonoscopy 03/06 which revealed a ileocecal valve mass, left sided adenomatous polyp, ulcerated area colonoscopy revealing mass at the ICV. Left colon polyp removed with cold snare and area of erythema and ulceration in sigmoid colon, biopsied. Bx of ileocecal mass c/w well differentiated adenoca and left colon polyp c/w tubular adenoma and ulcerated area -cryptitis--inflammation+ iscemia CT c/a/p noncontrast --no obvious metastatic disease. ascending colon thickening CEA: nl ECHO: EJF 55-60%, mild mitral annular calcification, mild to moderate MR, trace TR, mild AR Assessment and plan: Patient is an 88yo female with Pmhx of HTN, HLP, and glaucoma who presented with syncope. #POD #7 s/p iliocolic resection due to adenocarcinoma of the colon ( iliocecal mass ), off dilaudid [employer] , s/p Colonoscopy 03/06 which revealed a ileocecal valve mass, left sided adenomatous polyp, ulcerated area colonoscopy revealing mass at the ICV. Left colon polyp removed with cold snare and area of erythema and ulceration in sigmoid colon, biopsied. further management per surgical team. patient is on a soft diet now . will continue to monitor. # Syncope: likely vasovagal # Iron deficiency anemia , due to colon cancer s/p resection, iron pills at fl with colace and senna , hold asa for now. # H/o HTN: Cont Norvasc. DVt PX: heparin SQ SCDs Rehab only walked 35 feet
--- NOTE | 2019-03-19 15:26 | PN ---
Progress Note (short form) - Note Progress Note: 88yo F s/p Rt hemicolectomy, pt seen and examined at bedside. Pt states that her abd pain is well controlled. Pt tolerating clears and ambulating with PT. Pt denies n/v, fever, chills. Last Vital Signs Temp Pulse Resp BP Pulse Ox 98.6 F 80 16 130/61 97 03/19/19 14:21 03/19/19 14:21 03/19/19 14:21 03/19/19 14:21 03/19/19 09:00 CBC, BMP 03/19/19 05:20 03/19/19 05:20 PE: Gen: A&O x 3 Resp: breathing comfortably Abd: soft, nondistended, mild diffuse tenderness, incision clean with no erythema or discharge. Problem List - Problems (1) Colon cancer Assessment/Plan: Plan -will adv diet as tolerated -encourage oob/ambulate -DVT ppx -may consider discharge tomorrow, will reevaluate Pt seen and examined with Dr. Oneil who agrees with plan Code(s): C18.9 - MALIGNANT NEOPLASM OF COLON, UNSPECIFIED
--- NOTE | 2019-03-19 20:25 | PN ---
Progress Note (short form) - Note Progress Note: Patient seen Pathology reviewed S/P Ileocecal resection with adenoca arising in tubulovillous adenoma- No LVI 0/22 nodes No microsatellite instability T2, N0, Mx No post op adjuvant therapy required Serial monitoring CT q3 months of Chest , abdomen, pelvis, and LFT's and CEA q 3 months. Annual colonoscopy. Patient aware
[2019-03-19] MEDS: EZETIMIBE 10 MG TABLET (FP) PO SCH (21:48)
[2019-03-19] MEDS: ATORVASTATIN CA 40 MG TABLET (FP) PO SCH (21:48)
[2019-03-19] MEDS ORDERED: PT OWN MED DRAWER 7, Y5N ONE (21:53)
[2019-03-19] MEDS: MELATONIN 5 MG TABLETS PO SCH (21:54)
[2019-03-19] MEDS: LATANOPROST 0.005% OPHTH SOLN 2.5ML BOTTLE OU SCH (21:57)
[2019-03-20] MEDS: HEPARIN NA (PORCINE) 5,000 UNITS/ML 1ML VIAL SQ SCH ×3 (06:14→22:40)
[2019-03-20 06:49] LABS: HEMATOCRIT 23.9 % (32.4-45.2); HEMOGLOBIN 7.7 GM/dL (10.7-15.3); MCH 24.1 pg (25.7-33.7); MEAN CELL VOLUME 75.4 fl (80-96); MEAN PLT VOLUME 7.8 fl (7.5-11.1); PLATELET COUNT 440 K/MM3 (134-434); RBC 3.17 M/mm3 (3.60-5.2); RDW 23.5 % (11.6-15.6); WHITE BLOOD COUNT 10.1 K/mm3 (4.0-10.0)
[2019-03-20 07:14] LABS: ALBUMIN 2.1 g/dl (3.4-5.0); BILIRUBIN,TOTAL 0.4 mg/dL (0.2-1); CALCIUM 8.2 mg/dL (8.5-10.1); CREATININE 0.7 mg/dL (0.55-1.3); POTASSIUM 3.9 mmol/L (3.5-5.1); TOT PROT 5.2 g/dl (6.4-8.2)
[2019-03-20] MEDS: amLODIPine BESYLATE 10 MG TABLET (FP) PO SCH (09:20)
[2019-03-20] MEDS: PANTOPRAZOLE SODIUM 40 MG VIAL IVPUSH SCH (09:20)
--- NOTE | 2019-03-20 11:13 | PN ---
Progress Note (short form) - Note Progress Note: POD 8, s/p Ileocolic resection for Carcinoma of cecum Pt seen and examined. Reports she is feeling well today. Passing flatus, no further BMs since Monday night. Tolerating regular diet. Has been oob. Pain controlled with current pain regimen. Denies cp/sob, n/v/d. Vital Signs Temp 98 F 03/20/19 09:20 Pulse 83 03/20/19 09:20 Resp 18 03/20/19 09:20 BP 140/69 03/20/19 09:20 Pulse Ox 97 03/19/19 21:00 Intake & Output 03/19/19 03/19/19 03/20/19 11:59 23:59 11:59 Intake Total 370 860 390 Balance 370 860 390 Intake: Oral 370 860 390 Other: Voiding Method Diaper Diaper Diaper # Unmeasured Voids Void 2 2 1 Bowel Movement Yes No Yes # Bowel Movements 1 1 1 CBC, BMP 03/20/19 05:25 03/20/19 05:25 Gen: awake, alert, nad Resp: unlabored on 2L O2 Abdo: soft, nondistended, minimal ttp at incision, incision c/d/i with fer in place, c/d/i, no drainage or erythema noted. A/P: Pt is a 88 y/o F w/ pmhx of HTN, HLD, and glaucoma admitted 03/03 after syncope at home, found to be anemic with +guaiac, s/p colonoscopy revealing ileocecal mass + for adenocarcinoma, now POD 8, s/p Ileocolic resection for Carcinoma of cecum. afebrile, vss H/H stable -Continue regular diet -Monitor VS -Pain control -OOB with pt -Pt pending d/c to [facility] -Please contact surgery with any questions/concerns -Pt should f/u in the office with Dr Oneil in 2 weeks d/w attending Dr Oneil
--- NOTE | 2019-03-20 15:08 | PN ---
Physical Exam: SUBJECTIVE: Patient seen and examined Pt is s/p surgery POD8, recovering well. Pt had a bowel movement, but no noticeable blood. No other c/o. Pt also walked 55 feet as per PT. Denies f/c/n/v /d/sob/chest pain. OBJECTIVE: Vital Signs Period Temp Pulse Resp BP Sys/Brown Pulse Ox Last 24 Hr 98 F-98.6 F 76-83 17-18 130-141/59-69 96-97 GENERAL: The patient is awake, alert, and fully oriented, in no acute distress. EYES: PERRL, extraocular movements intact, sclera anicteric, ENT: Oropharynx clear without exudates, moist mucous membranes. LUNGS: Breath sounds equal, clear to auscultation bilaterally, no wheezes, no crackles, HEART: Regular rate and rhythm, S1, S2, 2/6 systolic murmur, no rub or gallop. ABDOMEN: POD 8, dressing intact. Surgical scar is intact and healing well, no signs of purulent discharge or surgical wound dehiscence. Dressing clean. EXTREMITIES: 2+ pulses, warm, no edema Laboratory Results - last 24 hr CBC,CMP WBC 10.1 K/mm3 (4.0-10.0) H 03/20/19 05:25 RBC 3.17 M/mm3 (3.60-5.2) L 03/20/19 05:25 Hgb 7.7 GM/dL (10.7-15.3) L 03/20/19 05:25 Hct 23.9 % (32.4-45.2) L 03/20/19 05:25 MCV 75.4 fl (80-96) L 03/20/19 05:25 MCH 24.1 pg (25.7-33.7) L 03/20/19 05:25 MCHC 32.0 g/dl (32.0-36.0) 03/20/19 05:25 RDW 23.5 % (11.6-15.6) H 03/20/19 05:25 Plt Count 440 K/MM3 (134-434) H 03/20/19 05:25 MPV 7.8 fl (7.5-11.1) 03/20/19 05:25 Absolute Neuts (auto) 5.7 K/mm3 (1.5-8.0) 03/18/19 06:05 Neutrophils % 76.0 % (42.8-82.8) 03/18/19 06:05 Lymphocytes % 14.9 % (8-40) 03/18/19 06:05 Monocytes % 6.0 % (3.8-10.2) 03/18/19 06:05 Eosinophils % 2.2 % (0-4.5) 03/18/19 06:05 Basophils % 0.9 % (0-2.0) 03/18/19 06:05 Nucleated RBC % 0 % (0-0) 03/18/19 06:05 Hypochromia 1+ 03/14/19 06:15 Platelet Estimate Adequate 03/17/19 22:44 Platelet Comment Slide scanned. 03/17/19 22:44 Polychromasia 1+ 03/17/19 22:44 Poikilocytosis 1+ 03/17/19 22:44 Basophilic Stippling 1+ 03/14/19 06:15 Anisocytosis 2+ 03/17/19 22:44 Microcytosis 1+ 03/17/19 22:44 Macrocytosis 1+ 03/17/19 22:44 Tear Drop Cells 1+ 03/14/19 06:15 Ovalocytes 1+ 03/17/19 22:44 Rouleaux 1+ 03/14/19 06:15 Retic Count 0.96 % (0.5-1.5) 03/03/19 16:20 Haptoglobin 172 mg/dL (34-200) 03/03/19 11:48 Sodium 139 mmol/L (136-145) 03/20/19 05:25 Potassium 3.9 mmol/L (3.5-5.1) 03/20/19 05:25 Chloride 107 mmol/L (98-107) 03/20/19 05:25 Carbon Dioxide 28 mmol/L (21-32) 03/20/19 05:25 Anion Gap 4 MMOL/L (8-16) L 03/20/19 05:25 BUN 10.0 mg/dL (7-18) 03/20/19 05:25 Creatinine 0.7 mg/dL (0.55-1.3) 03/20/19 05:25 Est GFR (CKD-EPI)AfAm 90.29 03/20/19 05:25 Est GFR (CKD-EPI)NonAf 77.90 03/20/19 05:25 POC Glucometer 133 UNITS (80-120) 03/04/19 16:47 Random Glucose 93 mg/dL (74-106) 03/20/19 05:25 Hemoglobin A1c % 5.8 % (4.2-6.3) 03/04/19 05:35 Calcium 8.2 mg/dL (8.5-10.1) L 03/20/19 05:25 Phosphorus 2.7 mg/dL (2.5-4.9) 03/18/19 06:05 Magnesium 2.0 mg/dL (1.8-2.4) 03/20/19 05:25 Iron 14 ug/dL (50-175) L 03/03/19 16:20 TIBC 359 ug/dL (250-450) 03/03/19 16:20 Iron Saturation 3 % (17.5-39) L 03/03/19 16:20 Unsaturated IBC 345 ug/dL (200-275) H 03/03/19 16:20 Ferritin 6.8 ng/ml (8-388) L 03/03/19 18:03 Total Bilirubin 0.4 mg/dL (0.2-1) 03/20/19 05:25 AST 50 U/L (15-37) H 03/20/19 05:25 ALT 36 U/L (13-61) 03/20/19 05:25 Alkaline Phosphatase 66 U/L (45-117) 03/20/19 05:25 LD Total 178 U/L (84-246) 03/03/19 16:20 Creatine Kinase 56 U/L (26-192) 03/03/19 16:20 CK-MB (CK-2) < 1.0 ng/mL (0.5-3.6) 03/10/19 21:05 Troponin I < 0.02 ng/ml (0.00-0.05) 03/11/19 07:35 Total Protein 5.2 g/dl (6.4-8.2) L 03/20/19 05:25 Albumin 2.1 g/dl (3.4-5.0) L 03/20/19 05:25 Carcinoembryonic Ag 3.1 ng/mL (0.0-4.7) 03/07/19 05:50 Active Medications Current Medications Acetaminophen (Tylenol -) 650 mg PO Q6H PRN PRN Reason: Fever Or Pain 6-10 Amlodipine Besylate (Norvasc -) 10 mg PO DAILY [facility] Last Admin: 03/20/19 09:20 Dose: 10 mg Artificial Tears (Artificial Tears) 1 drop OU QID PRN PRN Reason: DRY EYES Last Admin: 03/16/19 10:02 Dose: 1 drop Atorvastatin Calcium (Lipitor -) 40 mg PO HS [facility] Last Admin: 03/19/19 21:48 Dose: 40 mg Benzocaine/Menthol (Cepacol Lozenge -) 1 each MM PRN PRN PRN Reason: SORE THROAT Last Admin: 03/17/19 13:12 Dose: 1 each Ezetimibe (Zetia -) 10 mg PO HS [facility] Last Admin: 03/19/19 21:48 Dose: 10 mg Heparin Sodium (Porcine) (Heparin -) 5,000 unit SQ TID [facility] Last Admin: 03/20/19 14:16 Dose: 5,000 unit Latanoprost (Xalatan 0.005% Eye Drops -) 1 drop OU HS [facility] Last Admin: 03/19/19 21:57 Dose: 1 drop Melatonin (Melatonin) 10 mg PO HS [facility] Last Admin: 03/19/19 21:54 Dose: 10 mg Metoclopramide HCl (Reglan Injection -) 10 mg IVPUSH Q8H PRN PRN Reason: NAUSEA AND/OR VOMITING Last Admin: 03/16/19 11:19 Dose: 10 mg Ondansetron HCl (Zofran Injection) 4 mg IVPUSH Q6H PRN PRN Reason: NAUSEA Last Admin: 03/18/19 23:16 Dose: 4 mg Pantoprazole Sodium (Protonix Iv) 40 mg IVPUSH DAILY [facility] Last Admin: 03/20/19 09:20 Dose: 40 mg Tramadol HCl (Ultram -) 25 mg PO Q6H PRN PRN Reason: PAIN LEVEL 6-10 Home Medications Medication Instructions Recorded Amlodipine Besylate [Norvasc -] 5 mg PO DAILY 09/30/14 Ezetimibe/Simvastatin [Vytorin 1 tab PO HS 09/30/14 10-20 mg Tablet] traZODone HCL [Desyrel -] 25 mg PO HS PRN #30 tablet 11/28/16 Tolterodine Tartrate LA [Detrol LA 1 tablet PO DAILY 03/04/19 -] Latanoprost 0.005% Eye Drops 1 drop HS 03/06/19 [Xalatan 0.005% Eye Drops -] Cephalexin Monohydrate [Keflex -] 500 mg PO Q12H #6 capsule 03/07/19 Docusate Sodium [Colace -] 100 mg PO BID #60 capsule 03/07/19 Ferrous Sulfate [Feosol] 325 mg PO BID #60 tablet 03/07/19 Microbiology 03/03/19 18:20 Urine - Urine Clean Catch Urine Culture - Final NO GROWTH OBTAINED ASSESSMENT/PLAN: #Syncope 2/2 to anemia 2/2 possible malignancy S/p surgery POD7 s/p Ileocecal adenocarcinoma resection No post op adjuvant therapy needed- serial abd and pelvis CT q3 months and monitor LFTs and CEAs Annual colonoscopy needed Hold aspirin- will consider restarting Incentive spirometry F/u Dr. Rudolph office in 2 weeks [facility] placement was denied, will need to consider SNF #Hypokalemia Potassium 3.9 #Anemia- Hb 7.7 today monitor #HTN cont home meds- amlodipine 10 mg #HLD cont atorvastatin #DVT ppx Heparin 5000 TID FEN Soft diet Dispo: soft diet, encourage pt to ambulate, f/u SNF placement Visit type - Emergency Visit Emergency Visit: Yes ED Registration Date: 03/03/19 Care time: The patient presented to the Emergency Department on the above date and was hospitalized for further evaluation of their emergent condition. - New Patient This patient is new to me today: Yes Date on this admission: 03/22/19 - Critical Care Critical Care patient: No - Discharge Referral Referred to [facility] Med P.C.: No ATTENDING PHYSICIAN STATEMENT I saw and evaluated the patient. I reviewed the resident's note and discussed the case with the resident. I agree with the resident's findings and plan as documented. SUBJECTIVE: OBJECTIVE: ASSESSMENT AND PLAN:
--- NOTE | 2019-03-20 18:17 | PN ---
Teaching Attending Note Name of Resident: Love Mandujano ATTENDING PHYSICIAN STATEMENT I saw and evaluated the patient. I reviewed the resident's note and discussed the case with the resident. I agree with the resident's findings and plan as documented. SUBJECTIVE: No fever or chills. No AC . no pain . she feels better . had BM yesterday OBJECTIVE: NAD CV: RRR, no MRG Lungs: CTAB Abd: soft, NT, ND, NL BS . mid ine surgical wound with fer. minimal surrounding edema. no erythema or drainage Ext: No edema or erythema. ASSESSMENT AND PLAN: 88 y/o lady with h/o HTN, HLP, and glaucoma who presented with LOC 1- Syncope: likely vasovagal 2- Iron deficiency anemia 3- Adenocarcinoma of colon ' 4- h/o HTN plan : - co nt diet - f/u with onc for surveillance - can resume asa at [place] - [facility]ipo : pending rehab
[2019-03-20] MEDS: MELATONIN 5 MG TABLETS PO SCH (22:39)
[2019-03-20] MEDS: ATORVASTATIN CA 40 MG TABLET (FP) PO SCH (22:40)
[2019-03-20] MEDS: EZETIMIBE 10 MG TABLET (FP) PO SCH (22:40)
[2019-03-20] MEDS: LATANOPROST 0.005% OPHTH SOLN 2.5ML BOTTLE OU SCH (22:42)
[2019-03-20] MEDS: ONDANSETRON 4 MG/2 ML VIAL IVPUSH PRN (22:46)
[2019-03-21] MEDS: HEPARIN NA (PORCINE) 5,000 UNITS/ML 1ML VIAL SQ SCH ×3 (06:43→21:52)
[2019-03-21 06:56] LABS: HEMATOCRIT 24.2 % (32.4-45.2); HEMOGLOBIN 7.8 GM/dL (10.7-15.3); MCH 24.5 pg (25.7-33.7); MCHC 32.3 g/dl (32.0-36.0); MEAN PLT VOLUME 7.7 fl (7.5-11.1); PLATELET COUNT 486 K/MM3 (134-434); RBC 3.19 M/mm3 (3.60-5.2); RDW 24.1 % (11.6-15.6); WHITE BLOOD COUNT 9.2 K/mm3 (4.0-10.0)
[2019-03-21 07:10] LABS: BLOOD UREA NITROGEN 9.4 mg/dL (7-18); CALCIUM 8.3 mg/dL (8.5-10.1); CREATININE 0.8 mg/dL (0.55-1.3); POTASSIUM 3.9 mmol/L (3.5-5.1)
[2019-03-21] MEDS: PANTOPRAZOLE SODIUM 40 MG VIAL IVPUSH SCH (09:26)
[2019-03-21] MEDS: amLODIPine BESYLATE 10 MG TABLET (FP) PO SCH (09:26)
--- NOTE | 2019-03-21 14:15 | PN ---
Progress Note, Physician History of Present Illness: No further near or true syncope, reports CASTILLO in AM. Irregular PSVT on telemetry , suspect MAT vs PAT - Current Medication List Current Medications: Active Medications Acetaminophen (Tylenol -) 650 mg PO Q6H PRN PRN Reason: Fever Or Pain 6-10 Last Admin: 03/20/19 22:40 Dose: 650 mg Amlodipine Besylate (Norvasc -) [address] [facility] Last Admin: 03/21/19 09:26 Dose: 10 mg Artificial Tears (Artificial Tears) 1 drop OU QID PRN PRN Reason: DRY EYES Last Admin: 03/16/19 10:02 Dose: 1 drop Atorvastatin Calcium (Lipitor -) [address] [facility] Last Admin: 03/20/19 22:40 Dose: 40 mg Benzocaine/Menthol (Cepacol Lozenge -) 1 each MM PRN PRN PRN Reason: SORE THROAT Last Admin: 03/17/19 13:12 Dose: 1 each Ezetimibe (Zetia -) [address] [facility] Last Admin: 03/20/19 22:40 Dose: 10 mg Heparin Sodium (Porcine) (Heparin -) 5,[address] [facility] Last Admin: 03/21/19 06:43 Dose: 5,000 unit Latanoprost (Xalatan 0.005% Eye Drops -) [address] [facility] Last Admin: 03/20/19 22:42 Dose: 1 drop Melatonin (Melatonin) [address] [facility] Last Admin: 03/20/19 22:39 Dose: 10 mg Metoclopramide HCl (Reglan Injection -) 10 mg IVPUSH Q8H PRN PRN Reason: NAUSEA AND/OR VOMITING Last Admin: 03/16/19 11:19 Dose: 10 mg Ondansetron HCl (Zofran Injection) 4 mg IVPUSH Q6H PRN PRN Reason: NAUSEA Last Admin: 03/20/19 22:46 Dose: 4 mg Pantoprazole Sodium (Protonix Iv) [address] [facility] Last Admin: 03/21/19 09:26 Dose: 40 mg Tramadol HCl (Ultram -) 25 mg PO Q6H PRN PRN Reason: PAIN LEVEL 6-10 - Objective Vital Signs: Vital Signs Temperature 97.9 F 03/21/19 09:21 Pulse Rate 75 03/21/19 09:21 Respiratory Rate 17 03/21/19 09:21 Blood Pressure 140/64 03/21/19 09:21 O2 Sat by Pulse Oximetry (%) 94 L 03/20/19 21:00 Constitutional: Yes: No Distress, Calm, Thin Neck: Yes: Supple Cardiovascular: Yes: Regular Rate and Rhythm Respiratory: Yes: Regular, Diminished, On Nasal O2 Gastrointestinal: Yes: Normal Bowel Sounds, Soft Edema: No Labs: CBC, BMP 03/21/19 05:30 03/21/19 05:30 INR, PTT INR 1.08 (0.83-1.09) 03/12/19 07:40 - ....Imaging EKG: Report Reviewed (Tele: MAT->SR) Problem List - Problems (1) Syncope and collapse Code(s): R55 - SYNCOPE AND COLLAPSE (2) Hyperlipemia Code(s): E78.5 - HYPERLIPIDEMIA, UNSPECIFIED Qualifiers: Hyperlipidemia type: pure hypercholesterolemia Qualified Code(s): E78.00 - Pure hypercholesterolemia, unspecified (3) Hypertension Code(s): I10 - ESSENTIAL (PRIMARY) HYPERTENSION Qualifiers: Hypertension type: essential hypertension Qualified Code(s): I10 - Essential (primary) hypertension (4) Paroxysmal atrial tachycardia Code(s): I47.1 - SUPRAVENTRICULAR TACHYCARDIA Assessment/Plan 03/04/2019 Echo: Normal LV and RV size and fxn LVEF 55-60%, normal atrial sizes , mild-mod MR, mild AR, tr TR 11/26/2016 Transthoracic echocardiography reveals normal LV systolic function, mild MR, mild AR and AR 11/28/2016 Nuclear myocardial perfusion imaging study reveals small zone of inferior fixed compatible with attenuation and LVEF 73% 1. MAT vs PAT 2. Neurocardiogenic syncope with typical prodromal symptoms 3. Anemia 4. Hypertensive heart disease 5. Hyperlipidemia 6. colon ca s/p ileocolic resection 7. Mild emphysema P: 1. Change Norvasc 5 qd to Toprol XL 25 qd, ASA 81 qd, Lipitor 10 qhs 2. Addressed abortive maneuvers once prodromal sxs experienced 3. Upright tilt table testing and holter monitoring as outpatient 4. F/u in office
--- NOTE | 2019-03-21 14:17 | PN ---
Teaching Attending Note Name of Resident: Koffi Sidhu ATTENDING PHYSICIAN STATEMENT I saw and evaluated the patient. I reviewed the resident's note and discussed the case with the resident. I agree with the resident's findings and plan as documented. SUBJECTIVE: no pain. no fever or chills OBJECTIVE: NAD CV: RRR, no MRG Lungs: CTAB Abd: soft, NT, ND, NL BS . Mid line surgical wound with fer. minimal surrounding edema. no erythema or drainage Ext: No edema or erythema. ASSESSMENT AND PLAN: 88 y/o lady with h/o HTN, HLP, and glaucoma who presented with LOC 1- Syncope: likely vasovagal 2- Iron deficiency anemia 3- Adenocarcinoma of colon ' 4- h/o HTN plan : - cont diet - f/u with onc for surveillance - can resume asa at [place] - cont norvasc - Tele reviewed. episodes of narrow complex tachycardia to 130s-150s. Sinus tachy Vs SVT ( most likely sinus) , but will review strips with card dispo : pending rehab
[2019-03-21] MEDS: metoPROLOL SUCCINATE 25 MG TAB.SR.24H (FP) PO SCH (15:09)
--- NOTE | 2019-03-21 17:32 | PN ---
Physical Exam: SUBJECTIVE: Patient seen and examined at bedside. Eating breakfast. Endorses feeling well. OBJECTIVE: Vital Signs Period Temp Pulse Resp BP Sys/Brown Pulse Ox Last 24 Hr 97.9 F-98.9 F 65-92 16-18 120-140/55-72 94-95 GENERAL: NAD HEAD: Normal with no signs of trauma. EYES: EOMI Sclera Clear NECK: Trachea midline, full range of motion, supple. LUNGS: CTA b/l HEART: RRR S1S2 ABDOMEN: Surgical fer abdomen. No erythema or discharge appreciated. Nontender and nondistended EXTREMITIES: No CCE PSYCH: Normal mood, normal affect. SKIN: Warm, dry, normal turgor, no rashes or lesions noted Laboratory Results - last 24 hr 03/21/19 03/21/19 05:30 05:30 WBC 9.2 RBC 3.19 L Hgb 7.8 L Hct 24.2 L MCV 76.0 L MCH 24.5 L MCHC 32.3 RDW 24.1 H Plt Count 486 H MPV 7.7 Sodium 142 Potassium 3.9 Chloride 106 Carbon Dioxide 28 Anion Gap 8 BUN 9.4 Creatinine 0.8 Est GFR (CKD-EPI)AfAm 76.83 Est GFR (CKD-EPI)NonAf 66.29 Random Glucose 85 Calcium 8.3 L Active Medications Generic Name Dose Route Start Last Admin Trade Name Freq PRN Reason Stop Dose Admin Acetaminophen 650 mg 03/17/19 20:00 03/20/19 22:40 Tylenol - PO 650 mg Q6H PRN Administration Fever Or Pain 6-10 Artificial Tears 1 drop 03/13/19 08:16 03/16/19 10:02 Artificial Tears OU 1 drop QID PRN Administration DRY EYES Atorvastatin Calcium 40 mg 03/12/19 22:00 03/20/19 22:40 Lipitor - PO 40 mg HS RAHUL Administration Benzocaine/Menthol 1 each 03/14/19 16:47 03/17/19 13:12 Cepacol Lozenge - MM 1 each PRN PRN Administration SORE THROAT Ezetimibe 10 mg 03/12/19 22:00 03/20/19 22:40 Zetia - PO 10 mg HS RAHUL Administration Heparin Sodium (Porcine) 5,000 unit 03/13/19 06:00 03/21/19 15:08 Heparin - SQ 5,000 unit TID RAHUL Administration Latanoprost 1 drop 03/13/19 22:00 03/20/19 22:42 Xalatan 0.005% Eye Drops - OU 1 drop HS [facility]UL Administration Melatonin 10 mg 03/12/19 22:00 03/20/19 22:39 Melatonin PO 10 mg HS [facility]UL Administration Metoclopramide HCl 10 mg 03/15/19 08:13 03/16/19 11:19 Reglan Injection - IVPUSH 10 mg Q8H PRN Administration NAUSEA AND/OR VOMITING Metoprolol Succinate 25 mg 03/21/19 14:30 03/21/19 15:09 Toprol Xl - PO 25 mg DAILY [facility]UL Administration Ondansetron HCl 4 mg 03/12/19 13:51 03/20/19 22:46 Zofran Injection IVPUSH 4 mg Q6H PRN Administration NAUSEA Pantoprazole Sodium 40 mg 03/13/19 10:00 03/21/19 09:26 Protonix Iv IVPUSH 40 mg DAILY [facility]UL Administration ASSESSMENT/PLAN: #Syncope 2/2 to anemia 2/2 possible malignancy S/p surgery POD8 s/p Ileocecal adenocarcinoma resection No post op adjuvant therapy needed- serial abd and pelvis CT q3 months and monitor LFTs and CEAs Annual colonoscopy needed Hold aspirin- will consider restarting Incentive spirometry F/u Dr. Rudolph office in 2 weeks [facility] placement was denied, will need to consider SNF #Likely MAT on Tele Norvasc switched to Toprol XL per Dr Perez-Cardiology #Hypokalemia Potassium 3.9 #Anemia- Hb 7.8 today monitor #HTN cont home meds- amlodipine 10 mg #HLD cont atorvastatin #DVT ppx Heparin 5000 TID FEN Soft diet Dispo: med-surg Visit type - Emergency Visit Emergency Visit: Yes ED Registration Date: 03/03/19 Care time: The patient presented to the Emergency Department on the above date and was hospitalized for further evaluation of their emergent condition. - New Patient This patient is new to me today: No - Critical Care Critical Care patient: No - Discharge Referral Referred to [facility] Med P.C.: No ATTENDING PHYSICIAN STATEMENT I saw and evaluated the patient. I reviewed the resident's note and discussed the case with the resident. I agree with the resident's findings and plan as documented. SUBJECTIVE: OBJECTIVE: ASSESSMENT AND PLAN:
[2019-03-21] MEDS: EZETIMIBE 10 MG TABLET (FP) PO SCH (21:52)
[2019-03-21] MEDS: ATORVASTATIN CA 40 MG TABLET (FP) PO SCH (21:52)
[2019-03-21] MEDS: MELATONIN 5 MG TABLETS PO SCH (21:52)
[2019-03-21] MEDS: LATANOPROST 0.005% OPHTH SOLN 2.5ML BOTTLE OU SCH (21:56)
[2019-03-22] MEDS: ONDANSETRON 4 MG/2 ML VIAL IVPUSH PRN (06:26)
[2019-03-22] MEDS: HEPARIN NA (PORCINE) 5,000 UNITS/ML 1ML VIAL SQ SCH ×2 (06:26→14:59)
[2019-03-22 07:29] LABS: HEMATOCRIT 27.9 % (32.4-45.2); MCH 24.8 pg (25.7-33.7); MCHC 32.4 g/dl (32.0-36.0); MEAN CELL VOLUME 76.6 fl (80-96); MEAN PLT VOLUME 7.4 fl (7.5-11.1); PLATELET COUNT 507 K/MM3 (134-434); RBC 3.65 M/mm3 (3.60-5.2); RDW 23.5 % (11.6-15.6)
[2019-03-22 08:00] LABS: BLOOD UREA NITROGEN 12.1 mg/dL (7-18); CALCIUM 8.9 mg/dL (8.5-10.1); CREATININE 0.8 mg/dL (0.55-1.3); PHOSPHOROUS 3.9 mg/dL (2.5-4.9); POTASSIUM 4.1 mmol/L (3.5-5.1)
[2019-03-22] MEDS: metoPROLOL SUCCINATE 25 MG TAB.SR.24H (FP) PO SCH (10:23)
[2019-03-22] MEDS: PANTOPRAZOLE SODIUM 40 MG VIAL IVPUSH SCH (10:23)
--- NOTE | 2019-03-22 11:26 | PN ---
Progress Note, Physician History of Present Illness: No further near or true syncope, ambulated w/o CASTILLO, near syncope or palpitations. Irregular PSVT on telemetry, suspect MAT vs PAT - Current Medication List Current Medications: Active Medications Acetaminophen (Tylenol -) 650 mg PO Q6H PRN PRN Reason: Fever Or Pain 6-10 Last Admin: 03/20/19 22:40 Dose: 650 mg Artificial Tears (Artificial Tears) 1 drop OU QID PRN PRN Reason: DRY EYES Last Admin: 03/16/19 10:02 Dose: 1 drop Atorvastatin Calcium (Lipitor -) 40 mg PO HS [facility] Last Admin: 03/21/19 21:52 Dose: 40 mg Benzocaine/Menthol (Cepacol Lozenge -) 1 each MM PRN PRN PRN Reason: SORE THROAT Last Admin: 03/17/19 13:12 Dose: 1 each Ezetimibe (Zetia -) 10 mg PO HS [facility] Last Admin: 03/21/19 21:52 Dose: 10 mg Heparin Sodium (Porcine) (Heparin -) 5,000 unit SQ TID [facility] Last Admin: 03/22/19 06:26 Dose: 5,000 unit Latanoprost (Xalatan 0.005% Eye Drops -) 1 drop OU HS [facility] Last Admin: 03/21/19 21:56 Dose: 1 drop Melatonin (Melatonin) 10 mg PO HS [facility] Last Admin: 03/21/19 21:52 Dose: 10 mg Metoclopramide HCl (Reglan Injection -) 10 mg IVPUSH Q8H PRN PRN Reason: NAUSEA AND/OR VOMITING Last Admin: 03/16/19 11:19 Dose: 10 mg Metoprolol Succinate (Toprol Xl -) 25 mg PO DAILY [facility] Last Admin: 03/22/19 10:23 Dose: 25 mg Ondansetron HCl (Zofran Injection) 4 mg IVPUSH Q6H PRN PRN Reason: NAUSEA Last Admin: 03/22/19 06:26 Dose: 4 mg Pantoprazole Sodium (Protonix Iv) 40 mg IVPUSH DAILY [facility] Last Admin: 03/22/19 10:23 Dose: 40 mg - Objective Vital Signs: Vital Signs Temperature 98 F 03/22/19 10:21 Pulse Rate 74 03/22/19 10:21 Respiratory Rate 18 11/29/19 10:21 Blood Pressure 137/62 11/29/19 10:21 O2 Sat by Pulse Oximetry (%) 94 L 03/21/19 20:58 Constitutional: Yes: No Distress, Calm, Thin Neck: Yes: Supple Cardiovascular: Yes: Regular Rate and Rhythm Respiratory: Yes: Regular, CTA Bilaterally Gastrointestinal: Yes: Normal Bowel Sounds, Soft, Other (+colostomy output) Edema: No Labs: CBC, BMP 03/22/19 07:03 03/22/19 07:03 INR, PTT INR 1.08 (0.83-1.09) 03/12/19 07:40 Problem List - Problems (1) Syncope and collapse Code(s): R55 - SYNCOPE AND COLLAPSE (2) Hyperlipemia Code(s): E78.5 - HYPERLIPIDEMIA, UNSPECIFIED Qualifiers: Hyperlipidemia type: pure hypercholesterolemia Qualified Code(s): E78.00 - Pure hypercholesterolemia, unspecified (3) Hypertension Code(s): I10 - ESSENTIAL (PRIMARY) HYPERTENSION Qualifiers: Hypertension type: essential hypertension Qualified Code(s): I10 - Essential (primary) hypertension (4) Paroxysmal atrial tachycardia Code(s): I47.1 - SUPRAVENTRICULAR TACHYCARDIA Assessment/Plan 03/04/2019 Echo: Normal LV and RV size and fxn LVEF 55-60%, normal atrial sizes , mild-mod MR, mild AR, tr TR 11/26/2016 Transthoracic echocardiography reveals normal LV systolic function, mild MR, mild AR and VA 11/28/2016 Nuclear myocardial perfusion imaging study reveals small zone of inferior fixed compatible with attenuation and LVEF 73% 1. MAT vs PAT -> SR 2. Neurocardiogenic syncope with typical prodromal symptoms 3. Anemia 4. Hypertensive heart disease 5. Hyperlipidemia 6. Colon ca s/p ileocolic resection 7. Mild emphysema P: 1. Continue Toprol XL 25 qd, ASA 81 qd, Lipitor 10 qhs, zetia 10 qd 2. Addressed abortive maneuvers once prodromal sxs experienced 3. Upright tilt table testing and holter monitoring as outpatient 4. F/u in office upon d/c
--- NOTE | 2019-03-22 14:07 | PN ---
Teaching Attending Note Name of Resident: Love Mandujano ATTENDING PHYSICIAN STATEMENT I saw and evaluated the patient. I reviewed the resident's note and discussed the case with the resident. I agree with the resident's findings and plan as documented. SUBJECTIVE: No fever or chills. No AC . no abd pain . having BMs. no N/V OBJECTIVE: NAD CV: RRR, no MRG Lungs: CTAB Abd: soft, NT, ND, NL BS . Mid line surgical wound with fer. minimal surrounding edema ( improved ) . minimal erythema at fer contact with skin. no drainage. no increased warmth Ext: No edema or erythema. ASSESSMENT AND PLAN: 88 y/o lady with h/o HTN, HLP, and glaucoma who presented with LOC 1- Syncope: likely vasovagal 2- Iron deficiency anemia 3- Adenocarcinoma of colon 4- h/o HTN 5- MAT on tele plan : - cont diet - f/u with onc for surveillance - can resume asa - Tele strips were d/w Dr. Perez yesterday. MAT was the diagnosis. norvasc was dc and toprol was started. - f/u with card for tilt table testing and for further monitoring - she was seen by surgical PA today. wound and fer looks clean . fer to be removed in 1 week dc to rehab .
--- NOTE | 2019-03-22 14:35 | DS ---
Physical Exam: SUBJECTIVE: Patient seen and examined Pleasant elderly women. Pt is s/p surgery POD10, recovering well. Pt had a bowel movement, but no noticeable blood. No other c/o. Pt also walked 125 feet as per PT. Afebrile and asymptomatic. Denies f/c/n/v/d/sob/chest pain. OBJECTIVE: Vital Signs Period Temp Pulse Resp BP Sys/Brown Pulse Ox Last 24 Hr 97.5 F-98.7 F 68-75 16-18 127-137/52-73 94 PHYSICAL EXAM GENERAL: The patient is awake, alert, and fully oriented, in no acute distress. EYES: PERRL, extraocular movements intact, sclera anicteric, ENT: Oropharynx clear without exudates, moist mucous membranes. LUNGS: Breath sounds equal, clear to auscultation bilaterally, no wheezes, no crackles, HEART: Regular rate and rhythm, S1, S2, 2/6 systolic murmur, no rub or gallop. ABDOMEN: POD 8, dressing intact. Surgical scar is intact and healing well, no signs of purulent discharge or surgical wound dehiscence. Dressing clean. EXTREMITIES: 2+ pulses, warm, no edema LABS Laboratory Results - last 24 hr 03/22/19 03/22/19 07:03 07:03 WBC 10.0 RBC 3.65 Hgb 9.0 L Hct 27.9 L D MCV 76.6 L MCH 24.8 L MCHC 32.4 RDW 23.5 H Plt Count 507 H MPV 7.4 L Sodium 139 Potassium 4.1 Chloride 104 Carbon Dioxide 29 Anion Gap 6 L BUN 12.1 Creatinine 0.8 Est GFR (CKD-EPI)AfAm 76.83 Est GFR (CKD-EPI)NonAf 66.29 Random Glucose 98 Calcium 8.9 Phosphorus 3.9 Magnesium 2.0 Current Medications Acetaminophen (Tylenol -) 650 mg PO Q6H PRN PRN Reason: Fever Or Pain 6-10 Last Admin: 03/20/19 22:40 Dose: 650 mg Artificial Tears (Artificial Tears) 1 drop OU QID PRN PRN Reason: DRY EYES Last Admin: 03/16/19 10:02 Dose: 1 drop Atorvastatin Calcium (Lipitor -) 40 mg PO HS RAHUL Last Admin: 03/21/19 21:52 Dose: 40 mg Benzocaine/Menthol (Cepacol Lozenge -) 1 each MM PRN PRN PRN Reason: SORE THROAT Last Admin: 03/17/19 13:12 Dose: 1 each Ezetimibe (Zetia -) 10 mg PO HS [facility] Last Admin: 03/21/19 21:52 Dose: 10 mg Heparin Sodium (Porcine) (Heparin -) 5,000 unit SQ TID [facility] Last Admin: 03/22/19 14:59 Dose: 5,000 unit Latanoprost (Xalatan 0.005% Eye Drops -) 1 drop OU HS [facility] Last Admin: 03/21/19 21:56 Dose: 1 drop Melatonin (Melatonin) 10 mg PO HS [facility] Last Admin: 03/21/19 21:52 Dose: 10 mg Metoclopramide HCl (Reglan Injection -) 10 mg IVPUSH Q8H PRN PRN Reason: NAUSEA AND/OR VOMITING Last Admin: 03/16/19 11:19 Dose: 10 mg Metoprolol Succinate (Toprol Xl -) 25 mg PO DAILY [facility] Last Admin: 03/22/19 10:23 Dose: 25 mg Ondansetron HCl (Zofran Injection) 4 mg IVPUSH Q6H PRN PRN Reason: NAUSEA Last Admin: 03/22/19 06:26 Dose: 4 mg Pantoprazole Sodium (Protonix Iv) 40 mg IVPUSH DAILY [facility] Last Admin: 03/22/19 10:23 Dose: 40 mg Home Medications Medication Instructions Recorded Tolterodine Tartrate LA [Detrol LA 1 tablet PO DAILY 03/04/19 -] Latanoprost 0.005% Eye Drops 1 drop HS 03/06/19 [Xalatan 0.005% Eye Drops -] Aspirin 81 mg PO DAILY #30 tab.chew 03/22/19 Atorvastatin Ca [Lipitor] 10 mg PO HS #30 tablet 03/22/19 Docusate Sodium [Colace] 100 mg PO BID 30 Days capsule 03/22/19 Ezetimibe [Zetia] 10 mg PO DAILY #30 tablet 03/22/19 Metoprolol Succinate [Toprol XL -] 25 mg PO DAILY #30 tab.sr.24h 03/22/19 Omeprazole 40 mg PO DAILY 03/22/19 traZODone HCL [Trazodone HCl] 100 mg DAILY PRN 03/22/19 Microbiology 03/03/19 18:20 Urine - Urine Clean Catch Urine Culture - Final NO GROWTH OBTAINED HOSPITAL COURSE: Date of Admission:03/03/19 88 y/o F, pmh of htn, hld, glaucoma presented for syncope of a few minute duration associated with LOC and post syncopal symptoms including nausea and headaches was admitted for syncope 2/2 to anemia, which was found to be as a result of an adenocarcinoma of the colon, discovered on CT a/p and confirmed on colonoscopy. 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 Oneil and tumor was biopsied during surgery, which found the lesion to be localized and contained, with no microsatellite instability, requiring no adjuvant therapy. Pt will require serial outpt CT q3 months of abd, pelvis, and monitoring of LFTs and CEAs w/ annual colonoscopy. Pt was discharged to rehab to regain strength and mobility. 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 Dense calcification of coronary arteries. #Syncope 2/2 to anemia 2/2 possible malignancy S/p surgery POD7 s/p Ileocecal adenocarcinoma resection No post op adjuvant therapy needed- serial abd and pelvis CT q3 months and monitor LFTs and CEAs Annual colonoscopy needed Hold aspirin- will consider restarting Incentive spirometry F/u Dr. Rudolph office in 2 weeks Date of Discharge: 03/22/19 Minutes to complete discharge: 35 Discharge Summary Problems reviewed: Yes Reason For Visit: ANEMIA,SYNCOPE/COLLAPSE Current Active Problems Anemia (Chronic) Colon cancer (Chronic) Condition: Improved - Instructions Diet, Activity, Other Instructions: You were admitted to the hospital for losing consciousness and falling. While you were here you were found to have low hemoglobin levels (red blood cells) and this likely caused you to fall. You were also found to have a UTI which was treated with antibiotics in the hospital. We evaluated you with lab work, blood work, imaging including a CAT scan of your abdomen. You also underwent, a colonoscopy and we found that you have a tumor in your colon. While you were here you were seen by surgery and a video editing internship, and your tumor was removed. We made some changes to your medications: Please STOP taking the Vytorin and Norvasc Please begin taking Lipitor 10mg daily by mouth Zetia 10mg daily by mouth Toprol XL 25 mg daily by mouth Aspirin 81mg daily You can take Colace twice a day to avoid constipation You can take senna daily if needed as well Please take all your other medications as prescribed Please follow up with your surgeon Dr. Oneil in 1 week for to have your fer removed Please follow up with your Tone Regulator, Dr. Cobb in3 weeks. You will need lab work to monitor your liver enzymes and tumor makers every 3 months. Please follow up with your oncologist, Dr. Blackwell in 1 week to discuss your treatment plan. You will need a CAT scan of your chest, abdomen and pelvis every 3 months to make sure your completely cancer free. Also other imagins and labs tests will need to be done periodically Please follow up with your primary care physician in 1 week. You will need a colonoscopy every year. Return to the emergency room, if you experience any worsening of your symptoms, chest pain, shortness of breath, nausea, vomiting, abdominal pain, notice any bleeding, or any other symptoms. Dr. Oneil Discharge Instructions Dear STEPHAN SIMMONS, Post Operative Instructions Physical activity Resume your normal everyday activity as tolerated no heavy lifting or exercise until seen by your surgeon. You may walk unlimited amounts of and climb stairs. You may resume driving the car when you feel safe and comfortable behind the wheel and are no longer taking narcotic pain medications. Wound care Keep incision clean and dry. The fer will be removed by your surgeon at your post op visit. Do not apply lotion or cream to the incision. Diet There are no dietary restrictions. Eat healthy, high-fiber foods. Drink 6 to 8 glasses of liquid each day. This will assist in keeping your bowels are regular. Call Dr. Oneil for any of the following: Severe pain not relieved by medication Fever of 101 or higher Excessive bleeding or drainage on dressing Inability to urinate If you experience any chest pain or shortness of breath please seek emergency treatment immediately. Call the office at [phone] for a post operative appointment in 7 days. Referrals: Maximilian Oneil MD [Staff Physician] - 1 Week Claudio Cobb DO [Staff Physician] - 3 Weeks Marixa Gaspar MD [Primary Care Provider] - 1 Week James Blackwell MD [Staff Physician] - Sebastian Perez MD [Staff Physician] - 2 Weeks Disposition: NURSING HOME FACILITY - Home Medications Comprehensive Discharge Medication List: Ambulatory Orders Tolterodine Tartrate LA [Detrol LA -] 1 tablet PO DAILY 03/04/19 Latanoprost 0.005% Eye Drops [Xalatan 0.005% Eye Drops -] 1 drop HS 03/06/19 Aspirin 81 mg PO DAILY #30 tab.chew 03/22/19 Atorvastatin Ca [Lipitor] 10 mg PO HS #30 tablet 03/22/19 Docusate Sodium [Colace] 100 mg PO BID 30 Days capsule 03/22/19 Ezetimibe [Zetia] 10 mg PO DAILY #30 tablet 03/22/19 Metoprolol Succinate [Toprol XL -] 25 mg PO DAILY #30 tab.sr.24h 03/22/19 Omeprazole 40 mg PO DAILY 03/22/19 traZODone HCL [Trazodone HCl] 100 mg DAILY PRN 03/22/19 This patient is new to me today: Yes Date on this admission: 03/22/19 Emergency Visit: Yes ED Registration Date: 03/03/19 Care time: The patient presented to the Emergency Department on the above date and was hospitalized for further evaluation of their emergent condition. Critical Care patient: No - Discharge Referral Referred to [facility] Med [facility] No ATTENDING PHYSICIAN STATEMENT I saw and evaluated the patient. I reviewed the resident's note and discussed the case with the resident. I agree with the resident's findings and plan as documented. SUBJECTIVE: OBJECTIVE: ASSESSMENT AND PLAN:
[2019-03-22 15:23] VITALS: BP 132/59; PULSE 75; TEMP 97.9
== END 2019-03-22 17:22 | DRG 330 ==
LOC: JER 15:26 → JERBED 17:55 → J2W 03-04 04:05 → J5S 03-08 23:05 → JSAMEDAYSX 03-12 14:01 → J4S 03-12 22:54
PROVIDERS: ADMIT Internal Medicine; ATTEND Internal Medicine
PROC: 0DBL0ZZ Excision of Transverse Colon, Open Approach (ICD-10-PCS; 2019-03-06)
PROC: 0DBG8ZZ Excision of Left Large Intestine, Via Natural or Artificial Opening Endoscopic (ICD-10-PCS; 2019-03-06)
PROC: 0DBF8ZZ Excision of Right Large Intestine, Via Natural or Artificial Opening Endoscopic (ICD-10-PCS; 2019-03-06)
PROC: 0DBH8ZX Excision of Cecum, Via Natural or Artificial Opening Endoscopic, Diagnostic (ICD-10-PCS; 2019-03-06)
PROC: 0DBN8ZX Excision of Sigmoid Colon, Via Natural or Artificial Opening Endoscopic, Diagnostic (ICD-10-PCS; 2019-03-06)
PROC: 0DBC8ZX Excision of Ileocecal Valve, Via Natural or Artificial Opening Endoscopic, Diagnostic (ICD-10-PCS; 2019-03-06)
PROC: 0DBB0ZZ Excision of Ileum, Open Approach (ICD-10-PCS; principal; 2019-03-12 09:30)
DX: C18.9 Malignant neoplasm of colon, unspecified (principal); N17.9 Acute kidney failure, unspecified; N39.0 Urinary tract infection, site not specified; J98.11 Atelectasis; I47.1 Supraventricular tachycardia; D50.0 Iron deficiency anemia secondary to blood loss (chronic); R55 Syncope and collapse; I10 Essential (primary) hypertension; J43.9 Emphysema, unspecified; E87.6 Hypokalemia; E78.5 Hyperlipidemia, unspecified; E86.0 Dehydration; K57.90 Diverticulosis of intestine, part unspecified, without perforation or abscess without bleeding; K64.8 Other hemorrhoids; K63.5 Polyp of colon
CPT/HCPCS: 36415; 70450-TC; 71045-TC-FY; 71250-TC; 74018-TC-FY; 74176-TC; 80048; 80053; 81003; 82272; 82378; 82550; 82553; 82728; 82962; 83010; 83036; 83540; 83550; 83615; 83735; 84100; 84484; 85025; 85027; 85044; 85610; 85730; 86850; 86900; 86901; 87086; 87804; 88305-TC; 88307-TC; 93005; 93010; 93306-TC; 93880-TC; 94760; 97116-GP; 97161-GP; 99284-25; J0131; J1644; J1756; J7030